=== PATIENT | male | born 1955 | race American Indian/Alaskan Native ===

== ENCOUNTER 2019-09-01 09:30 | Inpatient (IN) | payer MEDICAID, OTHER ==
[~2019-09-01 09:30] MED LIST: Bupivacaine 0.5%/EPINEPHrine 1:200,000 10 ML SDV ONE; Lactated Ringers 1,000 ML IV SCH; Midazolam 1 MG/ML 2 ML SDV ONE; Propofol 200 MG/20 ML SDV ONE; Rocuronium 100 MG/10 ML Syringe ONE; Sodium Chloride 0.9% 0 ML ONE; Succinylcholine/Sod PF 100 MG/5 ML SYRINGE IV ONE; Vancomycin 1 GM SDV ONE; ePHEDrine 50 MG/ML SDV ONE; fentaNYL 100 MCG/2 ML SDV ONE
[2019-09-01] MEDS ORDERED: Sodium Chloride 0.9% 20 ML ONE (13:03)
[2019-09-01] MEDS ORDERED: ceFAZolin 1 GM Vial ONE (13:03)
[2019-09-01] MEDS ORDERED: Bupivacaine 0.5% 10 ML SDV ONE (13:05)
[2019-09-01] MEDS ORDERED: Midazolam 1 MG/ML 2 ML SDV ONE ×2 (13:09→13:10)
[2019-09-01] MEDS ORDERED: fentaNYL 100 MCG/2 ML SDV ONE (13:10)
[2019-09-01] MEDS ORDERED: Propofol 200 MG/20 ML SDV ONE ×6 (13:10→15:51)
--- NOTE | 2019-09-01 13:17 | PCM.PREANE ---
Preanesthetic Assessment - Anesthesia/Transfusion/Family Hx Anesthesia History: Prior Anesthesia Without Reaction Family History of Anesthesia Reaction: No Transfusion History: No Prior Transfusion(s) Intubation History: Unknown - Review of Systems General: No Symptoms Pulmonary: No Symptoms Cardiovascular: No Symptoms Gastrointestinal: No Symptoms Neurological: No Symptoms Other: Reports: None - Physical Assessment Height: 5 ft 10 in Weight: 122.47 kg ASA Class: 2 Mental Status: Alert & Oriented x3 Airway Class: Mallampati = 2 Dentition: Reports: Normal Dentition (grinded edges) Thyro-Mental Finger Breadths: 3 Mouth Opening Finger Breadths: 3 ROM/Head Extension: Full Lungs: Clear to Auscultation, Normal Respiratory Effort Cardiovascular: Regular Rate, Regular Rhythm - Allergies Allergies/Adverse Reactions: Allergies Allergy/AdvReac Type Severity Reaction Status Date / Time No Known Allergies Allergy Verified 08/31/19 17:19 - Blood Blood Available: No - Anesthesia Plan Pre-Op Medication Ordered: None - Acknowledgements Anesthesia Type Planned: Spinal Pt an Appropriate Candidate for the Planned Anesthesia: Yes Alternatives and Risks of Anesthesia Discussed w Pt/Guardian: Yes Pt/Guardian Understands and Agrees with Anesthesia Plan: Yes PreAnesthesia Questionnaire HEENT History: Reports: Other (See Below) Other HEENT History: wears glasses Cardiovascular History: Reports: Hypertension Respiratory History: Reports: None Gastrointestinal History: Reports: Colon Polyp Genitourinary History: Reports: None Musculoskeletal History: Reports: Fracture, Osteoarthritis Other Musculoskeletal History: hx fx hand Neurological History: Reports: None Psychiatric History: Reports: None Endocrine/Metabolic History: Reports: Obesity/BMI 30+ (BMI 38.7) Hematologic History: Reports: None Immunologic History: Reports: None Oncologic (Cancer) History: Reports: None Dermatologic History: Reports: None - Past Surgical History Head Surgeries/Procedures: Reports: None HEENT Surgical History: Reports: None Cardiovascular Surgical History: Reports: None Respiratory Surgical History: Reports: None GI Surgical History: Reports: Colonoscopy Male Surgical History: Reports: None Endocrine Surgical History: Reports: None Neurological Surgical History: Reports: None Musculoskeletal Surgical History: Reports: Knee Replacement Other Musculoskeletal Surgeries/Procedures:: hx left knee replacement 5 years ago in [place] under spinal anesthesia, right knee replacement in july 2019 Oncologic Surgical History: Reports: None Dermatological Surgical History: Reports: None - SUBSTANCE USE Smoking Status *Q: Light Tobacco Smoker Tobacco Use Within Last Twelve Months: Cigarettes - HOME MEDS Home Medications: Home Meds Carvedilol [Coreg] 3.125 mg PO BID 07/23/19 [History] Enalapril Maleate 10 mg PO DAILY 07/23/19 [History] amLODIPine Besylate [Amlodipine Besylate] 10 mg PO DAILY 07/23/19 [History] Aspirin 325 mg PO DAILY #30 tablet 07/29/19 [Rx] cephALEXin [Cephalexin] 500 mg PO TID 08/31/19 [History] - CURRENT (IN HOUSE) MEDS Current Meds: Current Medications Lactated Ringer's (Ringers, Lactated) 1,000 mls @ 125 mls/hr IV ASDIRECTED WEI Discontinued Medications Bupivacaine HCl (Sensorcaine-Mpf 0.5%) Confirm Administered Dose 10 ml .ROUTE .STK-MED ONE Stop: 09/01/19 13:06 Bupivacaine HCl/Epinephrine Bitart (Marcaine 0.5%/Epinephrine 1:200,000) Confirm Administered Dose 10 ml .ROUTE .STK-MED ONE Stop: 09/01/19 07:45 Cefazolin Sodium (Ancef) Confirm Administered Dose 2 gm .ROUTE .STK-MED ONE Stop: 09/01/19 13:04 Ephedrine Sulfate (Ephedrine Sulfate) Confirm Administered Dose 50 mg .ROUTE .STK-MED ONE Stop: 09/01/19 07:30 Fentanyl (Sublimaze) Confirm Administered Dose 100 mcg .ROUTE .STK-MED ONE Stop: 09/01/19 07:30 Fentanyl (Sublimaze) Confirm Administered Dose 100 mcg .ROUTE .STK-MED ONE Stop: 09/01/19 13:11 Sodium Chloride (Normal Saline) Confirm Administered Dose 20 mls @ as directed .ROUTE .STK-MED ONE Stop: 09/01/19 07:30 Sodium Chloride (Normal Saline) Confirm Administered Dose 20 mls @ as directed .ROUTE .STK-MED ONE Stop: 09/01/19 13:04 Midazolam HCl (Versed 1 Mg/Ml) Confirm Administered Dose 2 mg .ROUTE .STK-MED ONE Stop: 09/01/19 07:30 Midazolam HCl (Versed 1 Mg/Ml) Confirm Administered Dose 2 mg .ROUTE .STK-MED ONE Stop: 09/01/19 13:10 Midazolam HCl (Versed 1 Mg/Ml) Confirm Administered Dose 2 mg .ROUTE .STK-MED ONE Stop: 09/01/19 13:11 Propofol (Diprivan 20 Ml) Confirm Administered Dose 200 mg .ROUTE .STK-MED ONE Stop: 09/01/19 07:29 Propofol (Diprivan 20 Ml) Confirm Administered Dose 200 mg .ROUTE .STK-MED ONE Stop: 09/01/19 13:11 Propofol (Diprivan 20 Ml) Confirm Administered Dose 200 mg .ROUTE .STK-MED ONE Stop: 09/01/19 13:11 Propofol (Diprivan 20 Ml) Confirm Administered Dose 200 mg .ROUTE .STK-MED ONE Stop: 09/01/19 13:12 Rocuronium [place] (Zemuron) Confirm Administered Dose 100 mg .ROUTE .STK-MED ONE Stop: 09/01/19 07:30 Vancomycin HCl (Vancomycin) Confirm Administered Dose 1 gm .ROUTE .STK-MED ONE Stop: 09/01/19 07:45
[2019-09-01] MEDS ORDERED: Ropivacaine 49.25 ML, Ketorolac 30 MG, EPINEPHrine 0.5 MG, cloNIDine 80 MCG in Sodium C... INJECT SCH (14:00)
[2019-09-01] MEDS ORDERED: Vancomycin 1 GM SDV ONE ×3 (14:33→16:12)
[2019-09-01] MEDS ORDERED: Sodium Chloride 0.9% 10 ML Syringe FLUSH PRN (16:48)
[2019-09-01] MEDS ORDERED: Bisacodyl 10 MG Supp RECTAL PRN (16:48)
[2019-09-01] MEDS ORDERED: Ondansetron 4 MG/2 ML SDV IVPUSH PRN (16:48)
[2019-09-01] MEDS ORDERED: Aluminum Hydroxide/Magnesium Hydroxide/Simethicone Susp 30 ML Cup PO PRN (16:48)
[2019-09-01] MEDS ORDERED: diphenhydrAMINE 25 MG Cap PO PRN (16:48)
[2019-09-01] MEDS ORDERED: Docusate Sodium 100 MG Cap PO PRN (16:48)
[2019-09-01] MEDS ORDERED: Sodium Chloride 0.9% 2.5 ML Syringe FLUSH PRN (16:48)
--- NOTE | 2019-09-01 16:56 | PCM.OPNOTE ---
- General Post-Op/Procedure Note Date of Surgery/Procedure: 09/01/19 Operative Procedure(s): removal of total knee arthroplasty. irrigation and debridement. implant of antiobiotic total knee spacer. wound vac placement, incisional Pre Op Diagnosis: superficial infection total knee arthroplasty Post-Op Diagnosis: Same Anesthesia Technique: Epidural Primary Surgeon: Javy Lieberman Crop And Soil Scientist: Danitza Balbuena Pathology: aerobic and anaerobic cultures, gram stain EBL in mLs: 50 Complications: None Condition: Good
--- NOTE | 2019-09-01 17:24 | PCM.POSTAN ---
POST ANESTHESIA ASSESSMENT - MENTAL STATUS Mental Status: Alert - VITAL SIGNS Vital Signs: Last Vital Signs Temp 36.1 C 09/01/19 16:42 Pulse 72 09/01/19 17:17 Resp 23 H 09/01/19 17:17 BP 140/83 09/01/19 17:17 Pulse Ox 94 L 09/01/19 17:17 - RESPIRATORY Respiratory Status: Respiratory Rate WNL - CARDIOVASCULAR CV Status: Pulse Rate WNL - GASTROINTESTINAL GI Status: No Symptoms - POST OP HYDRATION Hydration Status: Adequate & Stable
[2019-09-01] MEDS: Vancomycin 1.75 GM in Sodium Chloride 0.9% 500 ML IV SCH (18:03)
[2019-09-01] MEDS: Ketorolac 15 MG/ML SDV IVPUSH SCH (18:06)
[2019-09-01] MEDS: Acetaminophen/oxyCODONE 325-5 MG Tab PO PRN ×2 (18:39→23:00)
--- NOTE | 2019-09-01 21:42 | PCM.HP.2 ---
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 Lieberman. Patient has a history of Right TKA on 07/28/19. Patient reported increased pain and drainage from his wounds starting yesterday. He also has a history of infect left TKA in 2017 done in [place]. Patient denies any shortness of breath, chest pain, cough or fevers. Right Knee Pain Score (Numeric/FACES): 6 - Related Data Allergies/Adverse Reactions: Allergies Allergy/AdvReac Type Severity Reaction Status Date / Time No Known Allergies Allergy Verified 09/01/19 18:10 Home Medications: Home Meds Carvedilol [Coreg] 3.125 mg PO BID 07/23/19 [History] Enalapril Maleate 10 mg PO DAILY 07/23/19 [History] amLODIPine Besylate [Amlodipine Besylate] 10 mg PO DAILY 07/23/19 [History] Aspirin 325 mg PO DAILY #30 tablet 07/29/19 [Rx] cephALEXin [Cephalexin] 500 mg PO TID 08/31/19 [History] Past Medical History HEENT History: Reports: Other (See Below) Other HEENT History: wears glasses Cardiovascular History: Reports: Hypertension Respiratory History: Reports: None Gastrointestinal History: Reports: Colon Polyp Genitourinary History: Reports: None Musculoskeletal History: Reports: Fracture, Osteoarthritis Other Musculoskeletal History: hx fx hand Neurological History: Reports: None Psychiatric History: Reports: None Endocrine/Metabolic History: Reports: Obesity/BMI 30+ Hematologic History: Reports: None Immunologic History: Reports: None Oncologic (Cancer) History: Reports: None Dermatologic History: Reports: None - Past Surgical History Head Surgeries/Procedures: Reports: None HEENT Surgical History: Reports: None Cardiovascular Surgical History: Reports: None Respiratory Surgical History: Reports: None GI Surgical History: Reports: Colonoscopy Male Surgical History: Reports: None Endocrine Surgical History: Reports: None Neurological Surgical History: Reports: None Musculoskeletal Surgical History: Reports: Knee Replacement Other Musculoskeletal Surgeries/Procedures:: hx left knee replacement 5 years ago in [place] under spinal anesthesia, right knee replacement in july 2019 Oncologic Surgical History: Reports: None Dermatological Surgical History: Reports: None Social & Family History - Family History Family Medical History: Noncontributory - Tobacco Use Smoking Status *Q: Light Tobacco Smoker - Caffeine Use Caffeine Use: Reports: Coffee, Soda - Recreational Drug Use Drug Use in Last 12 Months: No H&P Review of Systems - Review of Systems: Review Of Systems: Comprehensive ROS is negative, except as noted in HPI. Exam - Exam Exam: See Below - Vital Signs Vital Signs: Last Vital Signs Temp 36.8 C 09/01/19 20:57 Pulse 88 09/01/19 20:57 Resp 16 09/01/19 20:57 BP 115/61 09/01/19 20:57 Pulse Ox 94 L 09/01/19 20:57 Weight: 122.47 kg - Exam General: Alert, Oriented HEENT: Mucosa Moist & [place] Lungs: Clear to Auscultation, Normal Respiratory Effort Cardiovascular: Regular Rate, Regular Rhythm GI/Abdominal Exam: Normal Bowel Sounds, Soft, Non-Tender Neurological: No: Focal Deficit - Patient Data Result Diagrams: 09/02/19 04:41 09/02/19 04:41 Hernán Results Last 24 hrs: Microbiology 09/01/19 14:30 Gram Stain - Preliminary Knee, Right Sepsis Event Note - Evaluation Sepsis Screening Result: No Definite Risk - Focused Exam Vital Signs: Vital Signs Temp Pulse Resp BP Pulse Ox 09/01/19 20:57 36.8 C 88 16 115/61 94 L 09/01/19 19:17 37.3 C 92 18 142/63 H 96 09/01/19 18:30 37.4 C 86 17 147/87 H 95 09/01/19 17:35 36.6 C 76 16 137/55 L 97 09/01/19 17:27 74 18 142/81 H 95 09/01/19 17:22 74 20 141/84 H 95 09/01/19 17:17 72 23 H 140/83 94 L 09/01/19 17:12 71 20 135/78 95 09/01/19 17:07 74 19 141/72 H 95 09/01/19 17:03 69 20 131/72 94 L 09/01/19 16:58 68 19 111/73 94 L 09/01/19 16:53 71 17 108/72 95 09/01/19 16:48 92 18 118/76 95 09/01/19 16:42 36.1 C 71 16 126/79 95 09/01/19 13:22 37.0 C 79 18 166/76 H 95 Date Exam was Performed: 09/02/19 Time Exam was Performed: 11:27 Problem List Initiated/Reviewed/Updated: Yes Orders Last 24hrs: Active Orders 24 hr Category Date Time Status Admission Status [Patient Status] [ADT] Routine ADT 09/01/19 16:47 Active Antiembolic Devices [RC] PER UNIT ROUTINE Care 09/01/19 17:04 Active Communication Order [RC] PRN Care 09/01/19 16:48 Active Cooling Warming Measures [RC] ASDIRECTED Care 09/01/19 16:48 Active Neurovascular Check [RC] Q2HR Care 09/01/19 16:48 Active Notify Provider Consults [RC] ASDIRECTED Care 09/01/19 16:53 Active Notify Provider Vital Signs [RC] ASDIRECTED Care 09/01/19 16:48 Active RT Incentive Spirometry [RC] Q1HWA Care 09/01/19 16:48 Active Urinary Catheter Removal [RC] ASDIRECTED Care 09/02/19 16:48 Active Vital Signs [RC] Q4H Care 09/01/19 16:48 Active Wound Care [RC] DAILY Care 09/01/19 16:48 Active Consult to Case Management/Sports Bookmaker [CONS] Cons 09/01/19 17:00 Active Routine Consult to Physician [CONS] Routine Cons 09/01/19 16:48 Active PT Evaluation and Treatment [CONS] Routine Cons 09/02/19 09:00 Active Regular Diet [DIET] Diet 09/01/19 Dinner Active ANAEROBIC CULTURE Routine Lab 09/01/19 14:30 Received BASIC METABOLIC PANEL,BMP [CHEM] AM Lab 09/02/19 05:11 Ordered CBC WITH AUTO DIFF [HEME] AM Lab 09/02/19 05:11 Ordered CULTURE WOUND [RM] Routine Lab 09/01/19 14:30 Results GRAM STAIN [RM] Routine Lab 09/01/19 14:30 Results HEMOGLOBIN/HEMATOCRIT,HH [HEME] DAILY Lab 09/02/19 06:00 Ordered HEMOGLOBIN/HEMATOCRIT,HH [HEME] DAILY Lab 09/03/19 06:00 Ordered VANCOMYCIN TROUGH [CHEM] Timed Lab 09/02/19 17:30 Ordered Acetaminophen/oxyCODONE [Percocet 325-5 MG] Med 09/01/19 16:48 Active 1 - 2 tab PO Q4H PRN Alum Hydrox/Mag Hydrox/Simeth [Mag-Al Plus] Med 09/01/19 16:48 Active 30 ml PO Q4H PRN Aspirin Med 09/02/19 09:00 Active 325 mg PO DAILY Docusate Sodium [Colace] Med 09/01/19 16:48 Active 100 mg PO BID PRN Enalapril [Vasotec] Med 09/02/19 09:00 Ordered 10 mg PO DAILY Famotidine [Pepcid] Med 09/02/19 09:00 Active 40 mg PO DAILY Ketorolac [Toradol] Med 09/01/19 18:00 Active 15 mg IVPUSH Q6H Lactated Ringers [Ringers, Lactated] 1,000 ml Med 09/01/19 07:30 Active IV ASDIRECTED Ondansetron [Zofran] Med 09/01/19 16:48 Active 4 mg IVPUSH Q6H PRN Pharmacy to Dose - Vancomycin Med 09/01/19 17:15 Active 1 dose .XX ASDIRECTED Ropivacaine [Naropin 0.2%] 49.25 ml Med 09/01/19 14:00 Active Ketorolac [Toradol] 30 mg EPINEPHrine [Adrenalin] 0.5 mg cloNIDine [Duraclon] 80 mcg Sodium Chloride 0.9% [Normal Saline] 23.45 ml INJECT ASDIRECTED Sodium Chloride 0.9% [Saline Flush] Med 09/01/19 16:48 Active 10 ml FLUSH ASDIRECTED PRN Sodium Chloride 0.9% [Saline Flush] Med 09/01/19 16:48 Active 2.5 ml FLUSH ASDIRECTED PRN Vancomycin 1.75 gm Med 09/01/19 18:00 Active Sodium Chloride 0.9% [Normal Saline] 500 ml IV Q8H amLODIPine Med 09/02/19 09:00 Ordered 10 mg PO DAILY bisacodyL [Dulcolax] Med 09/01/19 16:48 Active 10 mg RECTAL DAILY PRN carvediloL [Coreg] Med 09/02/19 09:00 Ordered 3.125 mg PO BID diphenhydrAMINE [Benadryl] Med 09/01/19 16:48 Active 25 - 50 mg PO Q6H PRN polyethylene glycoL 3350 [MiraLAX] Med 09/02/19 09:00 Active 17 gm PO DAILY Convert IV to Saline Lock [OM.PC] PRN Oth 09/01/19 17:00 Ordered Convert IV to Saline Lock [OM.PC] PRN Oth 09/02/19 17:00 Ordered Ice Therapy [OM.PC] Routine Oth 09/01/19 16:48 Ordered Sequential Compression Device [OM.PC] Routine Oth 09/01/19 16:48 Ordered Medication Orders Al Hydroxide/Mg Hydroxide (Mag-Al Plus) 30 ml PO Q4H PRN PRN Reason: Indigestion Aspirin (Aspirin) 325 mg PO DAILY [facility] Bisacodyl (Dulcolax) 10 mg RECTAL DAILY PRN PRN Reason: Constipation Carvedilol (Coreg) 3.125 mg PO BID [facility] Diphenhydramine HCl (Benadryl) 25 - 50 mg PO Q6H PRN PRN Reason: Itching Docusate Sodium (Colace) 100 mg PO BID PRN PRN Reason: Constipation Enalapril Maleate (Vasotec) 10 mg PO DAILY [facility] Famotidine (Pepcid) 40 mg PO DAILY [facility] Lactated Ringer's (Ringers, Lactated) 1,000 mls @ 125 mls/hr IV ASDIRECTED [facility] Last Admin: 09/01/19 13:18 Dose: 125 mls/hr Ropivacaine 49.25 ml/Ketorolac Tromethamine 30 mg/Epinephrine HCl 0.5 mg/ Clonidine HCl 80 mcg/ Sodium Chloride 75 mls @ 50 mls/sec INJECT ASDIRECTED [facility] Vancomycin HCl 1.75 gm/ Sodium (Chloride) 500 mls @ 250 mls/hr IV Q8H [facility] Last Admin: 09/01/19 18:03 Dose: 250 mls/hr Ketorolac Tromethamine (Toradol) 15 mg IVPUSH Q6H [facility] Stop: 09/02/19 21:00 Last Admin: 09/01/19 18:06 Dose: 15 mg Non-Formulary Medication (Amlodipine) 10 mg PO DAILY [facility] Ondansetron HCl (Zofran) 4 mg IVPUSH Q6H PRN PRN Reason: Nausea/Vomiting Oxycodone/Acetaminophen (Percocet 325-5 Mg) 1 - 2 tab PO Q4H PRN PRN Reason: Pain Last Admin: 09/01/19 18:39 Dose: 2 tab Polyethylene Glycol (Miralax) 17 gm PO DAILY [facility] Sodium Chloride (Saline Flush) 10 ml FLUSH ASDIRECTED PRN PRN Reason: Keep Vein Open Sodium Chloride (Saline Flush) 2.5 ml FLUSH ASDIRECTED PRN PRN Reason: Keep Vein Open Vancomycin HCl (Pharmacy To Dose - Vancomycin) 1 dose .XX ASDIRECTED [facility] Assessment/Plan Comment:: 63 yo male admitted for removal of infected right TKA. A spacer has been placed and Dr. Lieberman plans on arranging PICC for outpatient IV antibiotics pending culture results. Medicine service has been consulted regarding patient hypertension. Patient should have his enalapril, Coreg, and amlodipine resumed.
[2019-09-02] MEDS: Ketorolac 15 MG/ML SDV IVPUSH SCH ×4 (00:36→18:19)
[2019-09-02] MEDS: Vancomycin 1.75 GM in Sodium Chloride 0.9% 500 ML IV SCH ×3 (01:45→19:44)
[2019-09-02] MEDS: Acetaminophen/oxyCODONE 325-5 MG Tab PO PRN ×4 (03:51→23:05)
[2019-09-02 05:03] LABS: CARBON DIOXIDE,CO2 28.7 mmol/L (21.0-32.0); POTASSIUM,K 4.8 mmol/L (3.5-5.1)
--- NOTE | 2019-09-02 07:13 | PCM48HPAN ---
Post Anesthesia Note - EVALUATION WITHIN 48HRS OF ANESTHETIC Vital Signs in Normal Range: Yes Patient Participated in Evaluation: Yes Respiratory Function Stable: Yes Airway Patent: Yes Cardiovascular Function Stable: Yes Hydration Status Stable: Yes Pain Control Satisfactory: Yes Nausea and Vomiting Control Satisfactory: Yes Mental Status Recovered: Yes Vital Signs: Last Vital Signs Temp 37.6 C 09/02/19 03:50 Pulse 88 09/02/19 03:50 Resp 16 09/02/19 03:50 BP 147/63 H 09/02/19 03:50 Pulse Ox 96 09/02/19 03:50
--- NOTE | 2019-09-02 07:57 | OR ---
SURGEON: Javy Lieberman DATE OF PROCEDURE: 09/01/2019 PREOPERATIVE DIAGNOSIS: Superficial infection, right total knee arthroplasty. POSTOPERATIVE DIAGNOSIS: Deep infection, right total knee arthroplasty at 1 month and 4 days postop. PRIMARY SURGEON: Javy Lieberman DO CAUSTIC PURIFICATION OPERATOR: DREA Herrmann ROLE OF CAUSTIC PURIFICATION OPERATOR: Nurse practitioner, DREA Herrmann, played an essential role in assisting in this case, helping to position the patient, retract structures as needed, as well as suturing and cutting sutures as indicated. Her presence improved patient's safety and decreased operative time. PROCEDURES: 1. Removal of total knee arthroplasty. 2. Irrigation and debridement. 3. Implant of antibiotic total knee spacer. 4. Wound VAC placement, incisional. 5. Total synovectomy. ESTIMATED BLOOD LOSS: 50 mL. COMPLICATIONS: None. SPECIMENS: Aerobic and anaerobic cultures, Gram stain. DISCHARGE DISPOSITION: Stable to PACU. HISTORY AND INDICATIONS FOR THE PROCEDURE: The patient is well known to me. The previous week, there was concern about a DVT, which was ruled out via ultrasound. We did ask him to come to the office to check on him. He had a draining wound at that time. Risks and goals of the procedure were explained to the patient. Informed consent was obtained. DETAILS OF PROCEDURE: The patient was seen by myself and the Anesthesia staff in the preoperative holding area, where the operative site was marked. He was brought to the operative suite by the Anesthesia staff, where spinal anesthesia and conscious sedation were administered. All extremities were found to be well padded. The right lower extremity was then prepped and draped in a sterile manner. Time-out was called identifying the correct patient, the correct procedure, the correct site, and that antibiotics had been given within appropriate period of time. I did not apply the tourniquet at first, as is typical for superficial irrigation and debridement. I then opened up the incision. I could then palpate over to the medial part of the arthrotomy, and then a copious amount of purulent fluid was expressed. At that point, we then exsanguinated the right lower extremity. Tourniquet was raised to 250 mmHg and kept up for 120 minutes and taken down after closure. The regular incision was made and a medial parapatellar arthrotomy was then made. I then performed a full synovectomy, removing as much of the synovium as possible. We did notice a small area that continued to drain, and we found an area on the lateral side of the tibia, which was extra- articular, but this was a deep pocket, probably containing around 200 to 300 mL of fluid. This was expressed. We then irrigated that area and irrigated the knee. I then used a reciprocating saw and chisels to remove the femoral and tibial implants, after removing the polyethylene with an osteotome. We then removed any extra cement. I did take time to remove the cement from the tibial post area, as well as the distal reaming of the distal femur into the medullary cavity. After this had been accomplished, we then ran 4 L of Betadine infused irrigation through the pulse lavage system to irrigate. I also removed the patella polyethylene using reciprocating saw. At this point, we concentrated on preparing our tibial and femoral implants for a spacer. This was a [employer] spacer system. I took measurements, and we prepared, on the tibial side, an 81 mm x 52 mm large tibial implant and a 75 mm x 53 mm femoral implant. The femur with was applied first. This was done by applying the cement to even out the area of the femur, then applying a copious amount of cement, and then applying my femur. We then let that harden and then removed the plastic covering over the femur. We then applied cement to the tibia and then cemented my tibial component into place. We left the knee out in extension, allowed this to harden. We then applied antibiotic beads to the tibial cavity laterally. We then closed the parapatellar arthrotomy with four #5 Ethibond sutures in a [id number] manner at the superior-mid portion and inferior portion of the patella, as well as inferior at the proximal tibia. We then closed this in a watertight manner with two #1 Stratafix running sutures. We then applied Betadine-soaked irrigation to the subcutaneous area. I then applied more antibiotic impregnated beads and then closed subcu with #1 Stratafix, followed by charlene, followed by placement of an incisional wound VAC set to 120 mmHg suction. The tourniquet was let down at that time. The patient was allowed to awaken from anesthesia and taken to the PACU in stable condition. [id number] / MODL /[id number]
[2019-09-02] MEDS: Aspirin 325 MG Tab PO SCH (08:25)
[2019-09-02] MEDS: Carvedilol 3.125 MG Tab PO SCH ×2 (08:25→21:31)
[2019-09-02] MEDS: Polyethylene Glycol 3350 Powder 17 GM Packet PO SCH (08:26)
[2019-09-02] MEDS: amLODIPine 5 MG Tab PO SCH (08:27)
[2019-09-02] MEDS: Famotidine 20 MG Tab PO SCH (08:28)
--- NOTE | 2019-09-02 08:57 | PCM.CONSN ---
- General Info Date of Service: 09/02/19 Admission Dx/Problem (Free Text): Admission Diagnosis/Problem Admission Diagnosis/Problem Knee pain Subjective Update: Sitting up in the chair. Doing well. Pain to knee, but reports this only elevated with ambulation. Denies chest pain or SOB. No other concerns. Functional Status: Reports: Pain Controlled, Tolerating Diet, Ambulating, Urinating - Review of Systems General: Reports: No Symptoms HEENT: Reports: No Symptoms. Denies: Headaches, Sore Throat Pulmonary: Reports: No Symptoms. Denies: Shortness of Breath Cardiovascular: Reports: No Symptoms. Denies: Chest Pain, Palpitations Gastrointestinal: Reports: No Symptoms Genitourinary: Reports: No Symptoms. Denies: Dysuria, Frequency Musculoskeletal: Reports: No Symptoms Skin: Reports: No Symptoms Neurological: Reports: No Symptoms Psychiatric: Reports: No Symptoms - Patient Data Vitals - Most Recent: Last Vital Signs Temp 98.5 F 09/02/19 07:22 Pulse 86 09/02/19 08:25 Resp 16 09/02/19 07:22 BP 144/65 H 09/02/19 08:28 Pulse Ox 95 09/02/19 07:22 Weight - Most Recent: 122.47 kg I&O - Last 24 Hours: Intake & Output 09/01/19 09/02/19 09/02/19 22:59 06:59 14:59 Intake Total 3100 2047 Output Total 200 350 Balance 2900 1697 Lab Results Last 24 Hours: Laboratory Results - last 24 hr 09/02/19 09/02/19 Range/Units 04:41 04:41 WBC 11.56 H (4.0-11.0) K/uL RBC 3.34 L (4.50-5.90) M/uL Hgb 9.1 L (13.0-17.0) g/dL Hct 29.0 L (38.0-50.0) % MCV 86.8 (80.0-98.0) fL MCH 27.2 (27.0-32.0) pg MCHC 31.4 (31.0-37.0) g/dL RDW Std Deviation 51.3 (28.0-62.0) fl RDW Coeff of Yesika 16 H (11.0-15.0) % Plt Count 445 H (150-400) K/uL MPV 7.80 (7.40-12.00) fL Neut % (Auto) 75.6 (48.0-80.0) % Lymph % (Auto) 13.7 L (16.0-40.0) % [place] % (Auto) 9.9 (0.0-15.0) % Eos % (Auto) 0.5 (0.0-7.0) % Baso % (Auto) 0.3 (0.0-1.5) % Neut # (Auto) 8.8 H (1.4-5.7) K/uL Lymph # (Auto) 1.6 (0.6-2.4) K/uL [place] # (Auto) 1.1 H (0.0-0.8) K/uL Eos # (Auto) 0.1 (0.0-0.7) K/uL Baso # (Auto) 0.0 (0.0-0.1) K/uL Nucleated RBC % 0.0 /100WBC Nucleated RBCs # 0 K/uL Sodium 141 (136-148) mmol/L Potassium 4.8 (3.5-5.1) mmol/L Chloride 104 (98-107) mmol/L Carbon Dioxide 28.7 (21.0-32.0) mmol/L BUN 18 (7.0-18.0) mg/dL Creatinine 1.3 (0.8-1.3) mg/dL Est Cr Clr Drug Dosing 60.83 mL/min Estimated GFR (MDRD) 55.9 ml/min Glucose 122 H (74-106) mg/dL Calcium 8.0 L (8.5-10.1) mg/dL Hernán Results Last 24 Hours: Microbiology 09/01/19 14:30 Gram Stain - Preliminary Knee, Right Med Orders - Current: Current Medications Al Hydroxide/Mg Hydroxide (Mag-Al Plus) 30 ml PO Q4H PRN PRN Reason: Indigestion Amlodipine Besylate (Norvasc) 10 mg PO DAILY [facility] Last Admin: 09/02/19 08:27 Dose: 10 mg Aspirin (Aspirin) 325 mg PO DAILY [facility] Last Admin: 09/02/19 08:25 Dose: 325 mg Bisacodyl (Dulcolax) 10 mg RECTAL DAILY PRN PRN Reason: Constipation Carvedilol (Coreg) 3.125 mg PO BID [facility] Last Admin: 09/02/19 08:25 Dose: 3.125 mg Diphenhydramine HCl (Benadryl) 25 - 50 mg PO Q6H PRN PRN Reason: Itching Docusate Sodium (Colace) 100 mg PO BID PRN PRN Reason: Constipation Enalapril Maleate (Vasotec) 10 mg PO DAILY [facility] Last Admin: 09/02/19 08:28 Dose: 10 mg Famotidine (Pepcid) 40 mg PO DAILY [facility] Last Admin: 09/02/19 08:28 Dose: 40 mg Lactated Ringer's (Ringers, Lactated) 1,000 mls @ 125 mls/hr IV ASDIRECTED [facility] Last Admin: 09/01/19 13:18 Dose: 125 mls/hr Vancomycin HCl 1.75 gm/ Sodium (Chloride) 500 mls @ 250 mls/hr IV Q8H [facility] Last Admin: 09/02/19 01:45 Dose: 250 mls/hr Ketorolac Tromethamine (Toradol) 15 mg IVPUSH Q6H [facility] Stop: 09/02/19 21:00 Last Admin: 09/02/19 06:09 Dose: 15 mg Ondansetron HCl (Zofran) 4 mg IVPUSH Q6H PRN PRN Reason: Nausea/Vomiting Oxycodone/Acetaminophen (Percocet 325-5 Mg) 1 - 2 tab PO Q4H PRN PRN Reason: Pain Last Admin: 09/02/19 08:29 Dose: 2 tab Polyethylene Glycol (Miralax) 17 gm PO DAILY [facility] Last Admin: 09/02/19 08:26 Dose: 17 gm Sodium Chloride (Saline Flush) 10 ml FLUSH ASDIRECTED PRN PRN Reason: Keep Vein Open Sodium Chloride (Saline Flush) 2.5 ml FLUSH ASDIRECTED PRN PRN Reason: Keep Vein Open Vancomycin HCl (Pharmacy To Dose - Vancomycin) 1 dose .XX ASDIRECTED [facility] Discontinued Medications Bupivacaine HCl (Sensorcaine-Mpf 0.5%) Confirm Administered Dose 10 ml .ROUTE .STK-MED ONE Stop: 09/01/19 13:06 Bupivacaine HCl/Epinephrine Bitart (Marcaine 0.5%/Epinephrine 1:200,000) Confirm Administered Dose 10 ml .ROUTE .STK-MED ONE Stop: 09/01/19 07:45 Cefazolin Sodium (Ancef) Confirm Administered Dose 2 gm .ROUTE .ST-MED ONE Stop: 09/01/19 13:04 Ephedrine Sulfate (Ephedrine Sulfate) Confirm Administered Dose 50 mg .ROUTE .ST-MED ONE Stop: 09/01/19 07:30 Fentanyl (Sublimaze) Confirm Administered Dose 100 mcg .ROUTE .ST-MED ONE Stop: 09/01/19 07:30 Fentanyl (Sublimaze) Confirm Administered Dose 100 mcg .ROUTE .ST-MED ONE Stop: 09/01/19 13:11 Sodium Chloride (Normal Saline) Confirm Administered Dose 0 mls @ as directed .ROUTE .ST-MED ONE Stop: 09/01/19 07:30 Sodium Chloride (Normal Saline) Confirm Administered Dose 20 mls @ as directed .ROUTE .[facility]-MED ONE Stop: 09/01/19 13:04 Ropivacaine 49.25 ml/Ketorolac Tromethamine 30 mg/Epinephrine HCl 0.5 mg/ Clonidine HCl 80 mcg/ Sodium Chloride 75 mls @ 50 mls/sec INJECT ASDIRECTED WEI Midazolam HCl (Versed 1 Mg/Ml) Confirm Administered Dose 2 mg .ROUTE .ST-MED ONE Stop: 09/01/19 07:30 Midazolam HCl (Versed 1 Mg/Ml) Confirm Administered Dose 2 mg .ROUTE .ST-MED ONE Stop: 09/01/19 13:10 Midazolam HCl (Versed 1 Mg/Ml) Confirm Administered Dose 2 mg .ROUTE .ST-MED ONE Stop: 09/01/19 13:11 Propofol (Diprivan 20 Ml) Confirm Administered Dose 200 mg .ROUTE .ST-MED ONE Stop: 09/01/19 07:29 Propofol (Diprivan 20 Ml) Confirm Administered Dose 200 mg .ROUTE .ST-MED ONE Stop: 09/01/19 13:11 Propofol (Diprivan 20 Ml) Confirm Administered Dose 200 mg .ROUTE .ST-MED ONE Stop: 09/01/19 13:11 Propofol (Diprivan 20 Ml) Confirm Administered Dose 200 mg .ROUTE .STK-MED ONE Stop: 09/01/19 13:12 Propofol (Diprivan 20 Ml) Confirm Administered Dose 400 mg .ROUTE .ST-MED ONE Stop: 09/01/19 14:59 Propofol (Diprivan 20 Ml) Confirm Administered Dose 200 mg .ROUTE .STK-MED ONE Stop: 09/01/19 15:51 Propofol (Diprivan 20 Ml) Confirm Administered Dose 200 mg .ROUTE .STK-MED ONE Stop: 09/01/19 15:52 Rocuronium [place] (Zemuron) Confirm Administered Dose 100 mg .ROUTE .STK-MED ONE Stop: 09/01/19 07:30 Tranexamic Acid (Cyklokapron) Confirm Administered Dose 2,000 mg .ROUTE .STK- MED ONE Stop: 09/01/19 13:44 Vancomycin HCl (Vancomycin) Confirm Administered Dose 1 gm .ROUTE .STK-MED ONE Stop: 09/01/19 07:45 Vancomycin HCl (Vancomycin) Confirm Administered Dose 5 gm .ROUTE .STK-MED ONE Stop: 09/01/19 14:34 Vancomycin HCl (Vancomycin) Confirm Administered Dose 1 gm .ROUTE .STK-MED ONE Stop: 09/01/19 15:56 Vancomycin HCl (Vancomycin) Confirm Administered Dose 1 gm .ROUTE .STK-MED ONE Stop: 09/01/19 16:13 - Exam General: Alert, Oriented, Cooperative Lungs: Clear to Auscultation, Normal Respiratory Effort Cardiovascular: Regular Rate, Regular Rhythm GI/Abdominal Exam: Normal Bowel Sounds, Soft, Non-Tender Extremities: Normal Inspection, Normal Range of Motion, Non-Tender, No Pedal Edema Wound/Incisions: Dressing Dry and Intact (R knee, woun vac in place) Neurological: No New Focal Deficit Psy/Mental Status: Alert, Normal Affect, Normal Mood Sepsis Event Note - Evaluation Sepsis Screening Result: No Definite Risk - Focused Exam Vital Signs: Vital Signs Temp Pulse Pulse Resp BP BP Pulse Ox 09/02/19 08:28 144/65 H 09/02/19 08:27 144/65 H 09/02/19 08:25 86 144/65 H 09/02/19 07:22 98.5 F 86 16 144/65 H 95 09/02/19 03:50 99.6 F 88 16 147/63 H 96 09/01/19 22:58 99.5 F 90 17 140/75 94 L 09/01/19 20:57 98.3 F 88 16 115/61 94 L Date Exam was Performed: 09/02/19 Time Exam was Performed: 09:23 Consult PN Assessment/Plan POD#: 1 Procedures: Procedures BLOOD TYPING SEROLOGIC ABO (07/28/19) BLOOD TYPING SEROLOGIC RH(D) (07/28/19) COMPLETE CBC W/AUTO DIFF WBC (08/01/19) COMPREHEN METABOLIC PANEL (08/01/19) EMERGENCY DEPT VISIT (08/01/19) EXTREMITY STUDY (08/01/19) GLUCOSE BLOOD TEST (07/28/19) HEMATOCRIT (07/28/19) HEMOGLOBIN (07/28/19) METABOLIC PANEL TOTAL CA (07/28/19) PT EVAL LOW COMPLEX 20 MIN (07/28/19) RBC ANTIBODY SCREEN (07/28/19) ROUTINE VENIPUNCTURE (08/01/19) THERAPEUTIC ACTIVITIES (07/28/19) THERAPEUTIC EXERCISES (07/28/19) TOTAL KNEE ARTHROPLASTY (07/28/19) X-RAY EXAM KNEE 4 OR MORE (06/17/19) X-RAY EXAM OF KNEE 1 OR 2 (07/28/19) (1) Infection of total knee replacement SNOMED Code(s): 956541535 Code(s): T84.59XA - INFECT/INFLM REACTION DUE TO OTH INTERNAL JOINT PROSTH, INIT; Z96.659 - PRESENCE OF UNSPECIFIED ARTIFICIAL KNEE JOINT Current Visit: Yes (2) HTN (hypertension) SNOMED Code(s): 30016576 Code(s): I10 - ESSENTIAL (PRIMARY) HYPERTENSION Current Visit: Yes Qualifiers: Hypertension type: essential hypertension Qualified Code(s): I10 - Essential (primary) hypertension Problem List Initiated/Reviewed/Updated: Yes My Orders Last 24 Hours: My Active Orders 09/03/19 05:11 BMP [BASIC METABOLIC PANEL,BMP] [CHEM] AM Plan: This 63 year old mlae admitted s/p removal of R TKA due to infection, Hospitalist consulted for management of HTN 1. HTN: - Stable. Continue home medications of Enalapril, Coreg and Norvasc - Monitor BMP daily VTE prophylaxis: ASA BID per Orthopedics
--- NOTE | 2019-09-02 10:46 | PCM.PN ---
- General Info Date of Service: 09/02/19 Admission Dx/Problem (Free Text): right total knee infected joint Functional Status: Reports: Pain Controlled, Tolerating Diet, Urinating - Review of Systems General: Reports: No Symptoms HEENT: Reports: No Symptoms Pulmonary: Reports: No Symptoms Cardiovascular: Reports: No Symptoms Gastrointestinal: Reports: No Symptoms Genitourinary: Reports: No Symptoms Musculoskeletal: Reports: Joint Pain, Joint Swelling Skin: Reports: No Symptoms Neurological: Reports: No Symptoms Psychiatric: Reports: No Symptoms - Patient Data Vitals - Most Recent: Last Vital Signs Temp 36.9 C 09/02/19 07:22 Pulse 86 09/02/19 08:25 Resp 16 09/02/19 07:22 BP 144/65 H 09/02/19 08:28 Pulse Ox 95 09/02/19 07:22 Weight - Most Recent: 122.47 kg I&O - Last 24 Hours: Intake & Output 09/01/19 09/02/19 09/02/19 22:59 06:59 14:59 Intake Total 3100 2047 Output Total 200 350 Balance 2900 1697 Lab Results Last 24 Hours: Laboratory Results - last 24 hr 09/02/19 09/02/19 Range/Units 04:41 04:41 WBC 11.56 H (4.0-11.0) K/uL RBC 3.34 L (4.50-5.90) M/uL Hgb 9.1 L (13.0-17.0) g/dL Hct 29.0 L (38.0-50.0) % MCV 86.8 (80.0-98.0) fL MCH 27.2 (27.0-32.0) pg MCHC 31.4 (31.0-37.0) g/dL RDW Std Deviation 51.3 (28.0-62.0) fl RDW Coeff of Yesika 16 H (11.0-15.0) % Plt Count 445 H (150-400) K/uL MPV 7.80 (7.40-12.00) fL Neut % (Auto) 75.6 (48.0-80.0) % Lymph % (Auto) 13.7 L (16.0-40.0) % [place] % (Auto) 9.9 (0.0-15.0) % Eos % (Auto) 0.5 (0.0-7.0) % Baso % (Auto) 0.3 (0.0-1.5) % Neut # (Auto) 8.8 H (1.4-5.7) K/uL Lymph # (Auto) 1.6 (0.6-2.4) K/uL [place] # (Auto) 1.1 H (0.0-0.8) K/uL Eos # (Auto) 0.1 (0.0-0.7) K/uL Baso # (Auto) 0.0 (0.0-0.1) K/uL Nucleated RBC % 0.0 /100WBC Nucleated RBCs # 0 K/uL Sodium 141 (136-148) mmol/L Potassium 4.8 (3.5-5.1) mmol/L Chloride 104 (98-107) mmol/L Carbon Dioxide 28.7 (21.0-32.0) mmol/L BUN 18 (7.0-18.0) mg/dL Creatinine 1.3 (0.8-1.3) mg/dL Est Cr Clr Drug Dosing 60.83 mL/min Estimated GFR (MDRD) 55.9 ml/min Glucose 122 H (74-106) mg/dL Calcium 8.0 L (8.5-10.1) mg/dL Hernán Results Last 24 Hours: Microbiology 09/01/19 14:30 Gram Stain - Final Knee, Right Wound Culture - Preliminary Med Orders - Current: Current Medications Al Hydroxide/Mg Hydroxide (Mag-Al Plus) 30 ml PO Q4H PRN PRN Reason: Indigestion Amlodipine Besylate (Norvasc) 10 mg PO DAILY [facility] Last Admin: 09/02/19 08:27 Dose: 10 mg Aspirin (Aspirin) 325 mg PO DAILY [facility] Last Admin: 09/02/19 08:25 Dose: 325 mg Bisacodyl (Dulcolax) 10 mg RECTAL DAILY PRN PRN Reason: Constipation Carvedilol (Coreg) 3.125 mg PO BID [facility] Last Admin: 09/02/19 08:25 Dose: 3.125 mg Diphenhydramine HCl (Benadryl) 25 - 50 mg PO Q6H PRN PRN Reason: Itching Docusate Sodium (Colace) 100 mg PO BID PRN PRN Reason: Constipation Enalapril Maleate (Vasotec) 10 mg PO DAILY [facility] Last Admin: 09/02/19 08:28 Dose: 10 mg Famotidine (Pepcid) 40 mg PO DAILY [facility] Last Admin: 09/02/19 08:28 Dose: 40 mg Lactated Ringer's (Ringers, Lactated) 1,000 mls @ 125 mls/hr IV ASDIRECTED [facility] Last Admin: 09/01/19 13:18 Dose: 125 mls/hr Vancomycin HCl 1.75 gm/ Sodium (Chloride) 500 mls @ 250 mls/hr IV Q8H [facility] Last Admin: 09/02/19 10:23 Dose: 250 mls/hr Ketorolac Tromethamine (Toradol) 15 mg IVPUSH Q6H [facility] Stop: 09/02/19 21:00 Last Admin: 09/02/19 06:09 Dose: 15 mg Ondansetron HCl (Zofran) 4 mg IVPUSH Q6H PRN PRN Reason: Nausea/Vomiting Oxycodone/Acetaminophen (Percocet 325-5 Mg) 1 - 2 tab PO Q4H PRN PRN Reason: Pain Last Admin: 09/02/19 08:29 Dose: 2 tab Polyethylene Glycol (Miralax) 17 gm PO DAILY [facility] Last Admin: 09/02/19 08:26 Dose: 17 gm Sodium Chloride (Saline Flush) 10 ml FLUSH ASDIRECTED PRN PRN Reason: Keep Vein Open Sodium Chloride (Saline Flush) 2.5 ml FLUSH ASDIRECTED PRN PRN Reason: Keep Vein Open Vancomycin HCl (Pharmacy To Dose - Vancomycin) 1 dose .XX ASDIRECTED [facility] Discontinued Medications Bupivacaine HCl (Sensorcaine-Mpf 0.5%) Confirm Administered Dose 10 ml .ROUTE .STK-MED ONE Stop: 09/01/19 13:06 Bupivacaine HCl/Epinephrine Bitart (Marc[place] 0.5%/Epinephrine 1:200,000) Confirm Administered Dose 10 ml .ROUTE .STK-MED ONE Stop: 09/01/19 07:45 Cefazolin Sodium (Ancef) Confirm Administered Dose 2 gm .ROUTE .STK-MED ONE Stop: 09/01/19 13:04 Ephedrine Sulfate (Ephedrine Sulfate) Confirm Administered Dose 50 mg .ROUTE .STK-MED ONE Stop: 09/01/19 07:30 Fentanyl (Sublimaze) Confirm Administered Dose 100 mcg .ROUTE .STK-MED ONE Stop: 09/01/19 07:30 Fentanyl (Sublimaze) Confirm Administered Dose 100 mcg .ROUTE .STK-MED ONE Stop: 09/01/19 13:11 Sodium Chloride (Normal Saline) Confirm Administered Dose 0 mls @ as directed .ROUTE .STK-MED ONE Stop: 09/01/19 07:30 Sodium Chloride (Normal Saline) Confirm Administered Dose 20 mls @ as directed .ROUTE .STK-MED ONE Stop: 09/01/19 13:04 Ropivacaine 49.25 ml/Ketorolac Tromethamine 30 mg/Epinephrine HCl 0.5 mg/ Clonidine HCl 80 mcg/ Sodium Chloride 75 mls @ 50 mls/sec INJECT ASDIRECTED [facility] Midazolam HCl (Versed 1 Mg/Ml) Confirm Administered Dose 2 mg .ROUTE .STK-MED ONE Stop: 09/01/19 07:30 Midazolam HCl (Versed 1 Mg/Ml) Confirm Administered Dose 2 mg .ROUTE .STK-MED ONE Stop: 09/01/19 13:10 Midazolam HCl (Versed 1 Mg/Ml) Confirm Administered Dose 2 mg .ROUTE .STK-MED ONE Stop: 09/01/19 13:11 Propofol (Diprivan 20 Ml) Confirm Administered Dose 200 mg .ROUTE .STK-MED ONE Stop: 09/01/19 07:29 Propofol (Diprivan 20 Ml) Confirm Administered Dose 200 mg .ROUTE .STK-MED ONE Stop: 09/01/19 13:11 Propofol (Diprivan 20 Ml) Confirm Administered Dose 200 mg .ROUTE .STK-MED ONE Stop: 09/01/19 13:11 Propofol (Diprivan 20 Ml) Confirm Administered Dose 200 mg .ROUTE .STK-MED ONE Stop: 09/01/19 13:12 Propofol (Diprivan 20 Ml) Confirm Administered Dose 400 mg .ROUTE .STK-MED ONE Stop: 09/01/19 14:59 Propofol (Diprivan 20 Ml) Confirm Administered Dose 200 mg .ROUTE .STK-MED ONE Stop: 09/01/19 15:51 Propofol (Diprivan 20 Ml) Confirm Administered Dose 200 mg .ROUTE .STK-MED ONE Stop: 09/01/19 15:52 Rocuronium [place] (Zemuron) Confirm Administered Dose 100 mg .ROUTE .STK-MED ONE Stop: 09/01/19 07:30 Tranexamic Acid (Cyklokapron) Confirm Administered Dose 2,000 mg .ROUTE .STK- MED ONE Stop: 09/01/19 13:44 Vancomycin HCl (Vancomycin) Confirm Administered Dose 1 gm .ROUTE .STK-MED ONE Stop: 09/01/19 07:45 Vancomycin HCl (Vancomycin) Confirm Administered Dose 5 gm .ROUTE .STK-MED ONE Stop: 09/01/19 14:34 Vancomycin HCl (Vancomycin) Confirm Administered Dose 1 gm .ROUTE .STK-MED ONE Stop: 09/01/19 15:56 Vancomycin HCl (Vancomycin) Confirm Administered Dose 1 gm .ROUTE .STK-MED ONE Stop: 09/01/19 16:13 - Exam Quality Assessment: DVT Prophylaxis General: Alert, Oriented, Cooperative, No Acute Distress HEENT: Pupils Equal, Pupils Reactive, EOMI, Mucous Membr. Moist/[place] Neck: Supple, Trachea Midline Lungs: Normal Respiratory Effort Extremities: Joint Swelling, Limited Range of Motion Peripheral Pulses: 2+: Dorsalis Pedis (L), Dorsalis Pedis (R) Skin: Warm, Dry, Intact Wound/Incisions: Healing Well, Drainage Neurological: No New Focal Deficit Psy/Mental Status: Alert, Normal Affect, Normal Mood Sepsis Event Note - Evaluation Sepsis Screening Result: No Definite Risk - Focused Exam Vital Signs: Vital Signs Temp Pulse Pulse Resp BP BP Pulse Ox 09/02/19 08:28 144/65 H 09/02/19 08:27 144/65 H 09/02/19 08:25 86 144/65 H 09/02/19 07:22 36.9 C 86 16 144/65 H 95 09/02/19 03:50 37.6 C 88 16 147/63 H 96 09/01/19 22:58 37.5 C 90 17 140/75 94 L Date Exam was Performed: 09/02/19 Time Exam was Performed: 10:42 - Problem List & Annotations (1) Infection of total knee replacement SNOMED Code(s): 920895083 Code(s): T84.59XA - INFECT/INFLM REACTION DUE TO OTH INTERNAL JOINT PROSTH, INIT; Z96.659 - PRESENCE OF UNSPECIFIED ARTIFICIAL KNEE JOINT Status: Acute Current Visit: Yes Qualifiers: Encounter type: initial encounter Qualified Code(s): T84.59XA - Infection and inflammatory reaction due to other internal joint prosthesis, initial encounter; Z96.659 - Presence of unspecified artificial knee joint - Problem List Review Problem List Initiated/Reviewed/Updated: Yes - My Orders Last 24 Hours: My Active Orders 09/01/19 14:30 ANAEROBIC CULTURE Routine CULTURE WOUND [RM] Routine GRAM STAIN [RM] Routine 09/01/19 16:47 Admission Status [Patient Status] [ADT] Routine 09/01/19 18:00 Vancomycin 1.75 gm Sodium Chloride 0.9% [Normal Saline] 500 ml IV Q8H - Plan Plan:: A: Patient is doing very well postoperatively. He had minimal drainage from the wound VAC. No erythema is noted. P: We will start physical therapy and occupational therapy today. He will be weightbearing as tolerated on the right lower extremity. We will arrange for PICC line placement in [place] tomorrow and then arranged for daily vancomycin at [place]. He'll be seen 3 weeks postoperatively. We will decide whether to send him home on the outpatient wound VAC or jaswinder tomorrow. We will plan on re- planning a total knee arthroplasty implant at 6 weeks postoperatively.
[2019-09-02] MEDS ORDERED: Vancomycin 2 GM in Sodium Chloride 0.9% 500 ML IV SCH (22:00)
[2019-09-03 06:03] LABS: BLOOD UREA NITROGEN,BUN 14 mg/dL (7.0-18.0); CARBON DIOXIDE,CO2 28.7 mmol/L (21.0-32.0); CHLORIDE,CL 102 mmol/L (98-107); GLUCOSE RANDOM 114 mg/dL (74-106); POTASSIUM,K 4.4 mmol/L (3.5-5.1); SODIUM,NA 138 mmol/L (136-148)
--- NOTE | 2019-09-03 06:56 | PCM.PN ---
- General Info Date of Service: 09/03/19 - Review of Systems Systems Review Comment:: denies any pain or fevers. - Patient Data Vitals - Most Recent: Last Vital Signs Temp 37.5 C 09/03/19 04:39 Pulse 88 09/03/19 04:39 Resp 17 09/03/19 04:39 BP 152/64 H 09/03/19 04:39 Pulse Ox 95 09/03/19 04:39 Weight - Most Recent: 122.47 kg I&O - Last 24 Hours: Intake & Output 09/02/19 09/02/19 09/03/19 14:59 22:59 06:59 Intake Total 500 1 400 Output Total 600 Balance 500 1 -200 Lab Results Last 24 Hours: Laboratory Results - last 24 hr 09/02/19 09/03/19 09/03/19 Range/Units 17:33 05:40 05:40 Hgb 8.6 L (13.0-17.0) g/dL Hct 28.3 L (38.0-50.0) % Sodium 138 (136-148) mmol/L Potassium 4.4 (3.5-5.1) mmol/L Chloride 102 (98-107) mmol/L Carbon Dioxide 28.7 (21.0-32.0) mmol/L BUN 14 (7.0-18.0) mg/dL Creatinine 1.2 (0.8-1.3) mg/dL Est Cr Clr Drug Dosing 65.90 mL/min Estimated GFR (MDRD) > 60.0 ml/min Glucose 114 H (74-106) mg/dL Calcium 8.1 L (8.5-10.1) mg/dL Vancomycin Trough 24.4 H (5.0-10.0) ug/mL Hernán Results Last 24 Hours: Microbiology 09/01/19 14:30 Gram Stain - Final Knee, Right Wound Culture - Preliminary Med Orders - Current: Current Medications Al Hydroxide/Mg Hydroxide (Mag-Al Plus) 30 ml PO Q4H PRN PRN Reason: Indigestion Amlodipine Besylate (Norvasc) 10 mg PO DAILY [facility] Last Admin: 09/02/19 08:27 Dose: 10 mg Aspirin (Aspirin) 325 mg PO DAILY [facility] Last Admin: 09/02/19 08:25 Dose: 325 mg Bisacodyl (Dulcolax) 10 mg RECTAL DAILY PRN PRN Reason: Constipation Carvedilol (Coreg) 3.125 mg PO BID [facility] Last Admin: 09/02/19 21:31 Dose: 3.125 mg Diphenhydramine HCl (Benadryl) 25 - 50 mg PO Q6H PRN PRN Reason: Itching Docusate Sodium (Colace) 100 mg PO BID PRN PRN Reason: Constipation Enalapril Maleate (Vasotec) 10 mg PO DAILY [facility] Last Admin: 09/02/19 08:28 Dose: 10 mg Famotidine (Pepcid) 40 mg PO DAILY [facility] Last Admin: 09/02/19 08:28 Dose: 40 mg Lactated Ringer's (Ringers, Lactated) 1,000 mls @ 125 mls/hr IV ASDIRECTED [facility] Last Admin: 09/01/19 13:18 Dose: 125 mls/hr Vancomycin HCl 2 gm/ Sodium (Chloride) 500 mls @ 250 mls/hr IV Q12H [facility] Last Admin: 09/02/19 21:55 Dose: 250 mls/hr Ondansetron HCl (Zofran) 4 mg IVPUSH Q6H PRN PRN Reason: Nausea/Vomiting Oxycodone/Acetaminophen (Percocet 325-5 Mg) 1 - 2 tab PO Q4H PRN PRN Reason: Pain Last Admin: 09/02/19 23:05 Dose: 2 tab Polyethylene Glycol (Miralax) 17 gm PO DAILY [facility] Last Admin: 09/02/19 08:26 Dose: 17 gm Sodium Chloride (Saline Flush) 10 ml FLUSH ASDIRECTED PRN PRN Reason: Keep Vein Open Sodium Chloride (Saline Flush) 2.5 ml FLUSH ASDIRECTED PRN PRN Reason: Keep Vein Open Vancomycin HCl (Pharmacy To Dose - Vancomycin) 1 dose .XX ASDIRECTED [facility] Discontinued Medications Bupivacaine HCl (Sensorcaine-Mpf 0.5%) Confirm Administered Dose 10 ml .ROUTE .STK-MED ONE Stop: 09/01/19 13:06 Bupivacaine HCl/Epinephrine Bitart (Marcaine 0.5%/Epinephrine 1:200,000) Confirm Administered Dose 10 ml .ROUTE .STK-MED ONE Stop: 09/01/19 07:45 Cefazolin Sodium (Ancef) Confirm Administered Dose 2 gm .ROUTE .STK-MED ONE Stop: 09/01/19 13:04 Ephedrine Sulfate (Ephedrine Sulfate) Confirm Administered Dose 50 mg .ROUTE .STK-MED ONE Stop: 09/01/19 07:30 Fentanyl (Sublimaze) Confirm Administered Dose 100 mcg .ROUTE .STK-MED ONE Stop: 09/01/19 07:30 Fentanyl (Sublimaze) Confirm Administered Dose 100 mcg .ROUTE .STK-MED ONE Stop: 09/01/19 13:11 Sodium Chloride (Normal Saline) Confirm Administered Dose 0 mls @ as directed .ROUTE .STK-MED ONE Stop: 09/01/19 07:30 Sodium Chloride (Normal Saline) Confirm Administered Dose 20 mls @ as directed .ROUTE .STK-MED ONE Stop: 09/01/19 13:04 Ropivacaine 49.25 ml/Ketorolac Tromethamine 30 mg/Epinephrine HCl 0.5 mg/ Clonidine HCl 80 mcg/ Sodium Chloride 75 mls @ 50 mls/sec INJECT ASDIRECTED [facility] Vancomycin HCl 1.75 gm/ Sodium (Chloride) 500 mls @ 250 mls/hr IV Q8H [facility] Last Admin: 09/02/19 19:44 Dose: Not Given Ketorolac Tromethamine (Toradol) 15 mg IVPUSH Q6H [facility] Stop: 09/02/19 21:00 Last Admin: 09/02/19 18:19 Dose: 15 mg Midazolam HCl (Versed 1 Mg/Ml) Confirm Administered Dose 2 mg .ROUTE .STK-MED ONE Stop: 09/01/19 07:30 Midazolam HCl (Versed 1 Mg/Ml) Confirm Administered Dose 2 mg .ROUTE .STK-MED ONE Stop: 09/01/19 13:10 Midazolam HCl (Versed 1 Mg/Ml) Confirm Administered Dose 2 mg .ROUTE .STK-MED ONE Stop: 09/01/19 13:11 Propofol (Diprivan 20 Ml) Confirm Administered Dose 200 mg .ROUTE .STK-MED ONE Stop: 09/01/19 07:29 Propofol (Diprivan 20 Ml) Confirm Administered Dose 200 mg .ROUTE .STK-MED ONE Stop: 09/01/19 13:11 Propofol (Diprivan 20 Ml) Confirm Administered Dose 200 mg .ROUTE .STK-MED ONE Stop: 09/01/19 13:11 Propofol (Diprivan 20 Ml) Confirm Administered Dose 200 mg .ROUTE .STK-MED ONE Stop: 09/01/19 13:12 Propofol (Diprivan 20 Ml) Confirm Administered Dose 400 mg .ROUTE .STK-MED ONE Stop: 09/01/19 14:59 Propofol (Diprivan 20 Ml) Confirm Administered Dose 200 mg .ROUTE .STK-MED ONE Stop: 09/01/19 15:51 Propofol (Diprivan 20 Ml) Confirm Administered Dose 200 mg .ROUTE .STK-MED ONE Stop: 09/01/19 15:52 Rocuronium [place] (Zemuron) Confirm Administered Dose 100 mg .ROUTE .STK-MED ONE Stop: 09/01/19 07:30 Tranexamic Acid (Cyklokapron) Confirm Administered Dose 2,000 mg .ROUTE .STK- MED ONE Stop: 09/01/19 13:44 Vancomycin HCl (Vancomycin) Confirm Administered Dose 1 gm .ROUTE .STK-MED ONE Stop: 09/01/19 07:45 Vancomycin HCl (Vancomycin) Confirm Administered Dose 5 gm .ROUTE .STK-MED ONE Stop: 09/01/19 14:34 Vancomycin HCl (Vancomycin) Confirm Administered Dose 1 gm .ROUTE .STK-MED ONE Stop: 09/01/19 15:56 Vancomycin HCl (Vancomycin) Confirm Administered Dose 1 gm .ROUTE .STK-MED ONE Stop: 09/01/19 16:13 - Exam General: Alert, Oriented Neck: Supple Lungs: Clear to Auscultation, Normal Respiratory Effort Cardiovascular: Regular Rate, Regular Rhythm GI/Abdominal Exam: Normal Bowel Sounds, Soft, Non-Tender Extremities: No Pedal Edema Sepsis Event Note - Evaluation Sepsis Screening Result: No Definite Risk - Focused Exam Vital Signs: Vital Signs Temp Pulse Pulse Resp BP BP Pulse Ox 09/03/19 04:39 37.5 C 88 17 152/64 H 95 09/02/19 23:00 36.8 C 91 16 113/53 L 93 L 09/02/19 21:31 94 145/65 H 09/02/19 19:25 36.7 C 98 16 132/55 L 95 Date Exam was Performed: 09/03/19 Time Exam was Performed: 06:54 - Problem List Review Problem List Initiated/Reviewed/Updated: Yes - My Orders Last 24 Hours: My Active Orders 09/02/19 09:00 Enalapril [Vasotec] 10 mg PO DAILY amLODIPine [Norvasc] 10 mg PO DAILY carvediloL [Coreg] 3.125 mg PO BID - Plan Plan:: 63 yo male s/p for 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 HTN: continue enalapril, Coreg, and amlodipine Infected right TKA: Dr. Lieberman has arranged for PICC and outpatient IV antibiotics.
[2019-09-03] MEDS ORDERED: Vancomycin 2 GM in Sodium Chloride 0.9% 500 ML IV ONE (08:00)
[2019-09-03] MEDS: Acetaminophen/oxyCODONE 325-5 MG Tab PO PRN (08:03)
[2019-09-03] MEDS: amLODIPine 5 MG Tab PO SCH (08:59)
[2019-09-03] MEDS: Carvedilol 3.125 MG Tab PO SCH (08:59)
[2019-09-03] MEDS: Aspirin 325 MG Tab PO SCH (09:00)
[2019-09-03] MEDS: Polyethylene Glycol 3350 Powder 17 GM Packet PO SCH (09:00)
[2019-09-03] MEDS: Famotidine 20 MG Tab PO SCH (09:00)
--- NOTE | 2019-09-03 09:05 | PCM.SURGPN ---
- General Info Date of Service: 09/03/19 (829) Date of Surgery/Procedure: 09/01/19 POD#: 2 Post-Op Diagnosis: Deep infection, right total knee arthroplasty Functional Status: Reports: Pain Controlled (pain in right knee controlled with oral narcotics), Tolerating Diet, Ambulating (states he was up walking in the room yesterday with staff and walker) - Review of Systems General: Denies: Fever Pulmonary: Denies: Shortness of Breath Cardiovascular: Denies: Chest Pain Musculoskeletal: Reports: Joint Pain, Joint Swelling (mild soft tissue swelling right knee. ) Neurological: Reports: No Symptoms Psychiatric: Reports: No Symptoms - Patient Data Vitals - Most Recent: Last Vital Signs Temp 37.5 C 09/03/19 04:39 Pulse 88 09/03/19 04:39 Resp 17 09/03/19 04:39 BP 152/64 H 09/03/19 04:39 Pulse Ox 95 09/03/19 04:39 Weight - Most Recent: 122.47 kg I&O - Last 24 Hours: Intake & Output 09/02/19 09/03/19 09/03/19 22:59 06:59 14:59 Intake Total 1 400 Output Total 600 Balance 1 -200 Lab Results Last 24 Hrs: Laboratory Results - last 24 hr 09/02/19 09/03/19 09/03/19 Range/Units 17:33 05:40 05:40 Hgb 8.6 L (13.0-17.0) g/dL Hct 28.3 L (38.0-50.0) % Sodium 138 (136-148) mmol/L Potassium 4.4 (3.5-5.1) mmol/L Chloride 102 (98-107) mmol/L Carbon Dioxide 28.7 (21.0-32.0) mmol/L BUN 14 (7.0-18.0) mg/dL Creatinine 1.2 (0.8-1.3) mg/dL Est Cr Clr Drug Dosing 65.90 mL/min Estimated GFR (MDRD) > 60.0 ml/min Glucose 114 H (74-106) mg/dL Calcium 8.1 L (8.5-10.1) mg/dL Vancomycin Trough 24.4 H (5.0-10.0) ug/mL Hernán Results Last 24 Hrs: Microbiology 09/01/19 14:30 Gram Stain - Final Knee, Right Wound Culture - Final (Mrsa) Staphylococcus Aureus Med Orders - Current: Current Medications Al Hydroxide/Mg Hydroxide (Mag-Al Plus) 30 ml PO Q4H PRN PRN Reason: Indigestion Amlodipine Besylate (Norvasc) 10 mg PO DAILY [facility] Last Admin: 09/02/19 08:27 Dose: 10 mg Aspirin (Aspirin) 325 mg PO DAILY [facility] Last Admin: 09/02/19 08:25 Dose: 325 mg Bisacodyl (Dulcolax) 10 mg RECTAL DAILY PRN PRN Reason: Constipation Carvedilol (Coreg) 3.125 mg PO BID [facility] Last Admin: 09/02/19 21:31 Dose: 3.125 mg Diphenhydramine HCl (Benadryl) 25 - 50 mg PO Q6H PRN PRN Reason: Itching Docusate Sodium (Colace) 100 mg PO BID PRN PRN Reason: Constipation Enalapril Maleate (Vasotec) 10 mg PO DAILY [facility] Last Admin: 09/02/19 08:28 Dose: 10 mg Famotidine (Pepcid) 40 mg PO DAILY [facility] Last Admin: 09/02/19 08:28 Dose: 40 mg Lactated Ringer's (Ringers, Lactated) 1,000 mls @ 125 mls/hr IV ASDIRECTED [facility] Last Admin: 09/01/19 13:18 Dose: 125 mls/hr Vancomycin HCl 2 gm/ Sodium (Chloride) 500 mls @ 250 mls/hr IV ONETIME ONE Stop: 09/03/19 09:59 Last Admin: 09/03/19 07:51 Dose: 250 mls/hr Ondansetron HCl (Zofran) 4 mg IVPUSH Q6H PRN PRN Reason: Nausea/Vomiting Oxycodone/Acetaminophen (Percocet 325-5 Mg) 1 - 2 tab PO Q4H PRN PRN Reason: Pain Last Admin: 09/03/19 08:03 Dose: 2 tab Polyethylene Glycol (Miralax) 17 gm PO DAILY [facility] Last Admin: 09/02/19 08:26 Dose: 17 gm Sodium Chloride (Saline Flush) 10 ml FLUSH ASDIRECTED PRN PRN Reason: Keep Vein Open Sodium Chloride (Saline Flush) 2.5 ml FLUSH ASDIRECTED PRN PRN Reason: Keep Vein Open Vancomycin HCl (Pharmacy To Dose - Vancomycin) 1 dose .XX ASDIRECTED [facility] Discontinued Medications Bupivacaine HCl (Sensorcaine-Mpf 0.5%) Confirm Administered Dose 10 ml .ROUTE .STK-MED ONE Stop: 09/01/19 13:06 Bupivacaine HCl/Epinephrine Bitart (Marcaine 0.5%/Epinephrine 1:200,000) Confirm Administered Dose 10 ml .ROUTE .STK-MED ONE Stop: 09/01/19 07:45 Cefazolin Sodium (Ancef) Confirm Administered Dose 2 gm .ROUTE .STK-MED ONE Stop: 09/01/19 13:04 Ephedrine Sulfate (Ephedrine Sulfate) Confirm Administered Dose 50 mg .ROUTE .STK-MED ONE Stop: 09/01/19 07:30 Fentanyl (Sublimaze) Confirm Administered Dose 100 mcg .ROUTE .STK-MED ONE Stop: 09/01/19 07:30 Fentanyl (Sublimaze) Confirm Administered Dose 100 mcg .ROUTE .STK-MED ONE Stop: 09/01/19 13:11 Sodium Chloride (Normal Saline) Confirm Administered Dose 0 mls @ as directed .ROUTE .STK-MED ONE Stop: 09/01/19 07:30 Sodium Chloride (Normal Saline) Confirm Administered Dose 20 mls @ as directed .ROUTE .STK-MED ONE Stop: 09/01/19 13:04 Ropivacaine 49.25 ml/Ketorolac Tromethamine 30 mg/Epinephrine HCl 0.5 mg/ Clonidine HCl 80 mcg/ Sodium Chloride 75 mls @ 50 mls/sec INJECT ASDIRECTED [facility] Vancomycin HCl 1.75 gm/ Sodium (Chloride) 500 mls @ 250 mls/hr IV Q8H [facility] Last Admin: 09/02/19 19:44 Dose: Not Given Vancomycin HCl 2 gm/ Sodium (Chloride) 500 mls @ 250 mls/hr IV Q12H [facility] Last Admin: 09/02/19 21:55 Dose: 250 mls/hr Ketorolac Tromethamine (Toradol) 15 mg IVPUSH Q6H [facility] Stop: 09/02/19 21:00 Last Admin: 09/02/19 18:19 Dose: 15 mg Midazolam HCl (Versed 1 Mg/Ml) Confirm Administered Dose 2 mg .ROUTE .STK-MED ONE Stop: 09/01/19 07:30 Midazolam HCl (Versed 1 Mg/Ml) Confirm Administered Dose 2 mg .ROUTE .STK-MED ONE Stop: 09/01/19 13:10 Midazolam HCl (Versed 1 Mg/Ml) Confirm Administered Dose 2 mg .ROUTE .STK-MED ONE Stop: 09/01/19 13:11 Propofol (Diprivan 20 Ml) Confirm Administered Dose 200 mg .ROUTE .STK-MED ONE Stop: 09/01/19 07:29 Propofol (Diprivan 20 Ml) Confirm Administered Dose 200 mg .ROUTE .STK-MED ONE Stop: 09/01/19 13:11 Propofol (Diprivan 20 Ml) Confirm Administered Dose 200 mg .ROUTE .STK-MED ONE Stop: 09/01/19 13:11 Propofol (Diprivan 20 Ml) Confirm Administered Dose 200 mg .ROUTE .STK-MED ONE Stop: 09/01/19 13:12 Propofol (Diprivan 20 Ml) Confirm Administered Dose 400 mg .ROUTE .STK-MED ONE Stop: 09/01/19 14:59 Propofol (Diprivan 20 Ml) Confirm Administered Dose 200 mg .ROUTE .STK-MED ONE Stop: 09/01/19 15:51 Propofol (Diprivan 20 Ml) Confirm Administered Dose 200 mg .ROUTE .STK-MED ONE Stop: 09/01/19 15:52 Rocuronium [place] (Zemuron) Confirm Administered Dose 100 mg .ROUTE .STK-MED ONE Stop: 09/01/19 07:30 Tranexamic Acid (Cyklokapron) Confirm Administered Dose 2,000 mg .ROUTE .STK- MED ONE Stop: 09/01/19 13:44 Vancomycin HCl (Vancomycin) Confirm Administered Dose 1 gm .ROUTE .STK-MED ONE Stop: 09/01/19 07:45 Vancomycin HCl (Vancomycin) Confirm Administered Dose 5 gm .ROUTE .STK-MED ONE Stop: 09/01/19 14:34 Vancomycin HCl (Vancomycin) Confirm Administered Dose 1 gm .ROUTE .STK-MED ONE Stop: 09/01/19 15:56 Vancomycin HCl (Vancomycin) Confirm Administered Dose 1 gm .ROUTE .STK-MED ONE Stop: 09/01/19 16:13 - Exam Wound/Incisions: Drainage (bloody drainage in Wound Vac tubing and canister), Other (Wound Vac dressing intact right knee, compressed with active suction. Current canister full and nursing staff changing canister at current time.). No : Erythema Quality Assessment: DVT Prophylaxis (ASA 325mg, ambulation) General: Alert, Oriented, Cooperative, No Acute Distress, Other (Helder is in good spirits. "Ready to get home to my own bed." ) HEENT: Pupils Equal Lungs: Normal Respiratory Effort Cardiovascular: Other (PP2+ RLE) Extremities: Other (No erythema, swelling or pain to right calf. Sensation grossly intact. ). No: Pedal Edema Skin: Warm, Dry Neurological: Normal Speech Psy/Mental Status: Alert, Normal Affect, Normal Mood Sepsis Event Note - Evaluation Sepsis Screening Result: No Definite Risk - Focused Exam Vital Signs: Vital Signs Temp Pulse Pulse Resp BP BP Pulse Ox 09/03/19 04:39 37.5 C 88 17 152/64 H 95 09/02/19 23:00 36.8 C 91 16 113/53 L 93 L 09/02/19 21:31 94 145/65 H Date Exam was Performed: 09/03/19 Time Exam was Performed: 08:59 - Problem List Review Problem List Initiated/Reviewed/Updated: Yes - My Orders Last 24 Hours: Active Orders 24 hr Category Date Time Status Ready for Discharge [RC] PER UNIT ROUTINE Care 09/03/19 08:25 Ordered PT Evaluation and Treatment [CONS] Routine Cons 09/02/19 09:00 Active VANCOMYCIN TROUGH [CHEM] Routine Lab 09/04/19 09:30 Ordered Aspirin Med 09/02/19 09:00 Active 325 mg PO DAILY Enalapril [Vasotec] Med 09/02/19 09:00 Active 10 mg PO DAILY Famotidine [Pepcid] Med 09/02/19 09:00 Active 40 mg PO DAILY Vancomycin 2 gm Med 09/03/19 08:00 Active Sodium Chloride 0.9% [Normal Saline] 500 ml IV ONETIME amLODIPine [Norvasc] Med 09/02/19 09:00 Active 10 mg PO DAILY carvediloL [Coreg] Med 09/02/19 09:00 Active 3.125 mg PO BID polyethylene glycoL 3350 [MiraLAX] Med 09/02/19 09:00 Active 17 gm PO DAILY Convert IV to Saline Lock [OM.PC] PRN Oth 09/02/19 17:00 Ordered Medication Orders Al Hydroxide/Mg Hydroxide (Mag-Al Plus) 30 ml PO Q4H PRN PRN Reason: Indigestion Amlodipine Besylate (Norvasc) 10 mg PO DAILY [facility] Last Admin: 09/02/19 08:27 Dose: 10 mg Aspirin (Aspirin) 325 mg PO DAILY [facility] Last Admin: 09/02/19 08:25 Dose: 325 mg Bisacodyl (Dulcolax) 10 mg RECTAL DAILY PRN PRN Reason: Constipation Carvedilol (Coreg) 3.125 mg PO BID [facility] Last Admin: 09/02/19 21:31 Dose: 3.125 mg Admin: 09/02/19 08:25 Dose: 3.125 mg Diphenhydramine HCl (Benadryl) 25 - 50 mg PO Q6H PRN PRN Reason: Itching Docusate Sodium (Colace) 100 mg PO BID PRN PRN Reason: Constipation Enalapril Maleate (Vasotec) 10 mg PO DAILY [facility] Last Admin: 09/02/19 08:28 Dose: 10 mg Famotidine (Pepcid) 40 mg PO DAILY [facility] Last Admin: 09/02/19 08:28 Dose: 40 mg Lactated Ringer's (Ringers, Lactated) 1,000 mls @ 125 mls/hr IV ASDIRECTED [facility] Last Admin: 09/01/19 13:18 Dose: 125 mls/hr Vancomycin HCl 2 gm/ Sodium (Chloride) 500 mls @ 250 mls/hr IV ONETIME ONE Stop: 09/03/19 09:59 Last Admin: 09/03/19 07:51 Dose: 250 mls/hr Ondansetron HCl (Zofran) 4 mg IVPUSH Q6H PRN PRN Reason: Nausea/Vomiting Oxycodone/Acetaminophen (Percocet 325-5 Mg) 1 - 2 tab PO Q4H PRN PRN Reason: Pain Last Admin: 09/03/19 08:03 Dose: 2 tab Admin: 09/02/19 23:05 Dose: 2 tab Admin: 09/02/19 12:46 Dose: 2 tab Admin: 09/02/19 08:29 Dose: 2 tab Admin: 09/02/19 03:51 Dose: 2 tab Admin: 09/01/19 23:00 Dose: 2 tab Admin: 09/01/19 18:39 Dose: 2 tab Polyethylene Glycol (Miralax) 17 gm PO DAILY [facility] Last Admin: 09/02/19 08:26 Dose: 17 gm Sodium Chloride (Saline Flush) 10 ml FLUSH ASDIRECTED PRN PRN Reason: Keep Vein Open Sodium Chloride (Saline Flush) 2.5 ml FLUSH ASDIRECTED PRN PRN Reason: Keep Vein Open Vancomycin HCl (Pharmacy To Dose - Vancomycin) 1 dose .XX ASDIRECTED [facility] - Assessment Assessment (Free Text/Narrative):: 1) 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 VSS/afebrile. Hg 8.6. He is asymptomatic (no c/o SOB, lightheadedness or extreme fatigue). Previous Hg was 9.1 Arrangements have been made for insertion of PICC line for 6 weeks of IV Vancomycin therapy, with appt scheduled this afternoon. Dosing of IV vancomycin under the direction of pharmacist. Arrangements have been made for IV infusion therapy at [facility] in [place], [place], in addition to WoundVac dressing changes every 3-4 days. He will be discharged with wound vac canister system, stating he is familiar with this machine from his previous use on Lt knee infection s/p TKA Fall of 2016. Rx written for Percocet for pain management. Continue ASA 325mg (Rx written) for DVT prophylaxis. Advised frequent use of ice per Polar care machine to knee to minimize swelling and decrease pain. Follow up appt scheduled with myself at orthopedic clinic in 3 weeks, for suture removal. He was advised to contact orthopedic clinic sooner if acute concerns or questions.
== END 2019-09-03 10:25 | disposition home or self-care (01) | DRG 468 ==
LOC: EDSTATUS 09:30 → MW.MS 16:47
PROVIDERS: ADMIT Orthopaedic Surgery; ATTEND Orthopaedic Surgery
PROC: 0SPC0JZ Removal of Synthetic Substitute from Right Knee Joint, Open Approach (ICD-10-PCS; principal; 2019-09-01)
PROC: 0SRC0EZ Replacement of Right Knee Joint with Articulating Spacer, Open Approach (ICD-10-PCS; 2019-09-01)
PROC: 0SBC0ZZ Excision of Right Knee Joint, Open Approach (ICD-10-PCS; 2019-09-01)
PROC: 3E0U029 Introduction of Other Anti-infective into Joints, Open Approach (ICD-10-PCS; 2019-09-01)
DX: T84.53XA Infection and inflammatory reaction due to internal right knee prosthesis, initial encounter (principal); I10 Essential (primary) hypertension; M19.90 Unspecified osteoarthritis, unspecified site; E66.9 Obesity, unspecified; F17.200 Nicotine dependence, unspecified, uncomplicated; Z79.82 Long term (current) use of aspirin; Z79.899 Other long term (current) drug therapy; Z68.38 Body mass index [BMI] 38.0-38.9, adult
CPT/HCPCS: 36415; 80048; 80202; 85014; 85018; 85025; 87070; 87075; 87077; 87186; 87205; 97161-GP; A9270-GY; J0171; J0330; J0690; J0735; J1885; J2250; J2704; J2795; J3010; J3370; J3490; J7040; J7050; J7120

== ENCOUNTER 2019-09-06 15:34 | Inpatient (IN) | payer MEDICAID, OTHER ==
--- NOTE | 2019-09-06 16:38 | EDM.PDOC ---
ED HPI GENERAL MEDICAL PROBLEM - General Chief Complaint: Lower Extremity Injury/Pain Stated Complaint: WOUND OPENING ON RT KNEE Time Seen by Provider: 09/06/19 15:35 Source of Information: Reports: Patient History Limitations: Reports: No Limitations - History of Present Illness INITIAL COMMENTS - FREE TEXT/NARRATIVE: HISTORY AND PHYSICAL: History of present illness: Patient is a 63-year-old male who presents to the ED today with concern of wound opening of his right knee. Patient had a recent total right knee replacement done by Dr. Lieberman and had a postop area of abscess. On the of this month, 5 days ago, patient had removal of hardware, drainage of abscess, and placement of a wound VAC. Patient was discharged with close instruction for IV vancomycin with a PICC line to be done in [place]. Patient states that he did not go and get antibiotics on Friday or Friday but went in today and had the wound reevaluated in [place] and was told that it was worsening and he needed to come to [place]. Patient states he did receive a dose of IV antibiotics today. Patient denies any other symptoms or concerns. Patient denies fever, chills, chest pain, shortness of breath, or cough. Denies headache, neck stiff ness, change in vision, syncope, or near syncope. Denies nausea, vomiting, abdominal pain, diarrhea, constipation, or dysuria. Has not noted any blood in urine or stool. Patient has been eating and drinking appropriately. Review of systems: As per history of present illness and below otherwise all systems reviewed and negative. Past medical history: As per history of present illness and as reviewed below otherwise noncontributory. Surgical history: As per history of present illness and as reviewed below otherwise noncontributory. Social history: See social history for further information Family history: As per history of present illness and as reviewed below otherwise noncontributory. Physical exam: General: Patient is alert, oriented, and in no acute distress. Patient sitting comfortably on exam table. HEENT: Atraumatic, normocephalic, pupils equal and reactive bilaterally, negative for conjunctival pallor or scleral icterus, mucous membranes moist, TMs normal bilaterally, throat clear, neck supple, nontender, trachea midline. No drooling or trismus noted. No meningeal signs. No hot potato voice noted. Lungs: Clear to auscultation, breath sounds equal bilaterally, chest nontender. Heart: S1S2, regular rate and rhythm without overt murmur Abdomen: Soft, nondistended, nontender. Negative for masses or hepatosplenomegaly. Negative for costovertebral tenderness. Pelvis: Stable nontender. Genitourinary: Deferred. Rectal: Deferred. Skin: Intact, warm, dry. No lesions or rashes noted. Extremities: There is a 5cm area of dehiscence at the inferior surgical incision with a small amount of reddish/pus discharge. Otherwise, atraumatic, negative for cords or calf pain. Neurovascular unremarkable. Neuro: Awake, alert, oriented. Cranial nerves II through XII unremarkable. Cerebellum unremarkable. Motor and sensory unremarkable throughout. Exam nonfocal. Notes: Dr. Lieberman, orthopedic refrigeration installer, consulted on patient and will admit to observation. Voices understanding and is agreeable to plan of care. Denies any further questions or concerns at this time. Diagnostics: CBC, CMP, lactate, blood culture x 2, knee XR, CRP, ESR Therapeutics: Sterile dressing placed by nursing staff Impression: Post-op wound infection Plan: Admit to observation to Dr. Lieberman, orthopedics Definitive disposition and diagnosis as appropriate pending reevaluation and review of above. right knee Pain Score (Numeric/FACES): 3 - Related Data Allergies Allergy/AdvReac Type Severity Reaction Status Date / Time No Known Allergies Allergy Verified 09/06/19 15:58 Home Meds: Home Meds Carvedilol [Coreg] 3.125 mg PO BID 07/23/19 [History] Enalapril Maleate 10 mg PO DAILY 07/23/19 [History] amLODIPine Besylate [Amlodipine Besylate] 10 mg PO DAILY 07/23/19 [History] Acetaminophen/oxyCODONE [Percocet 325-5 MG] 1 - 2 tab PO Q6HR PRN #40 tablet [Rx] Pharmacy to Dose - Vancomycin 1 dose .XX ASDIRECTED each 09/03/19 [Rx] Past Medical History HEENT History: Reports: Other (See Below) Other HEENT History: wears glasses Cardiovascular History: Reports: Hypertension Respiratory History: Reports: None Gastrointestinal History: Reports: Colon Polyp Genitourinary History: Reports: None Musculoskeletal History: Reports: Fracture, Osteoarthritis Other Musculoskeletal History: hx fx hand Neurological History: Reports: None Psychiatric History: Reports: None Endocrine/Metabolic History: Reports: Obesity/BMI 30+ Hematologic History: Reports: None Immunologic History: Reports: None Oncologic (Cancer) History: Reports: None Dermatologic History: Reports: None - Past Surgical History Head Surgeries/Procedures: Reports: None HEENT Surgical History: Reports: None Cardiovascular Surgical History: Reports: None Respiratory Surgical History: Reports: None GI Surgical History: Reports: Colonoscopy Male Surgical History: Reports: None Endocrine Surgical History: Reports: None Neurological Surgical History: Reports: None Musculoskeletal Surgical History: Reports: Knee Replacement Other Musculoskeletal Surgeries/Procedures:: hx left knee replacement 5 years ago in [place] under spinal anesthesia, right knee replacement in july 2019 Oncologic Surgical History: Reports: None Dermatological Surgical History: Reports: None Social & Family History - Family History Family Medical History: Noncontributory - Tobacco Use Smoking Status *Q: Current Some Day Smoker Years of Tobacco use: 30 Packs/Tins Daily: 0.1 - Caffeine Use Caffeine Use: Reports: Coffee, Soda - Recreational Drug Use Recreational Drug Use: No Review of Systems - Review of Systems Review Of Systems: Comprehensive ROS is negative, except as noted in HPI. ED EXAM, GENERAL - Physical Exam Exam: See Below (see dictation) Course - Vital Signs Last Recorded V/S: Last Vital Signs Temp 97.7 F 09/06/19 15:55 Pulse 78 09/06/19 15:55 Resp 18 09/06/19 15:55 BP 127/57 L 09/06/19 15:55 Pulse Ox 96 09/06/19 15:55 - Orders/Labs/Meds Orders: Active Orders 24 hr Category Date Time Status Admission Status [Patient Status] [ADT] Stat ADT 09/06/19 17:16 Ordered CRP [C-REACTIVE PROTEIN] [CHEM] Stat Lab 09/06/19 17:14 Ordered CULTURE BLOOD [BC] Stat Lab 09/06/19 16:20 Received CULTURE BLOOD [BC] Stat Lab 09/06/19 16:30 Received SEDIMENTATION RATE AUTO [HEME] Stat Lab 09/06/19 17:14 Ordered Blood Culture x2 Reflex Set [OM.PC] Stat Oth 09/06/19 15:55 Ordered Labs: Laboratory Tests 09/06/19 09/06/19 09/06/19 Range/Units 16:20 16:20 16:20 WBC 7.97 (4.0-11.0) K/uL RBC 3.10 L (4.50-5.90) M/uL Hgb 8.2 L (13.0-17.0) g/dL Hct 26.7 L (38.0-50.0) % MCV 86.1 (80.0-98.0) fL MCH 26.5 L (27.0-32.0) pg MCHC 30.7 L (31.0-37.0) g/dL RDW Std Deviation 50.6 (28.0-62.0) fl RDW Coeff of Yesika 16 H (11.0-15.0) % Plt Count 717 H (150-400) K/uL MPV 7.70 (7.40-12.00) fL Neut % (Auto) 69.6 (48.0-80.0) % Lymph % (Auto) 18.2 (16.0-40.0) % [place] % (Auto) 8.2 (0.0-15.0) % Eos % (Auto) 3.5 (0.0-7.0) % Baso % (Auto) 0.5 (0.0-1.5) % Neut # (Auto) 5.6 (1.4-5.7) K/uL Lymph # (Auto) 1.5 (0.6-2.4) K/uL [place] # (Auto) 0.7 (0.0-0.8) K/uL Eos # (Auto) 0.3 (0.0-0.7) K/uL Baso # (Auto) 0.0 (0.0-0.1) K/uL Nucleated RBC % 0.0 /100WBC Nucleated RBCs # 0 K/uL Lactate 0.9 (0.20-2.00) mmol/L Sodium 140 (136-148) mmol/L Potassium 4.1 (3.5-5.1) mmol/L Chloride 105 (98-107) mmol/L Carbon Dioxide 25.4 (21.0-32.0) mmol/L BUN 15 (7.0-18.0) mg/dL Creatinine 1.1 (0.8-1.3) mg/dL Est Cr Clr Drug Dosing 71.89 mL/min Estimated GFR (MDRD) > 60.0 ml/min Glucose 112 H (74-106) mg/dL Calcium 8.3 L (8.5-10.1) mg/dL Total Bilirubin 0.2 (0.2-1.0) mg/dL AST 16 (15-37) IU/L ALT 28 (14-63) IU/L Alkaline Phosphatase 88 (46-116) U/L Total Protein 7.8 (6.4-8.2) g/dL Albumin 2.5 L (3.4-5.0) g/dL Globulin 5.3 H (2.6-4.0) g/dL Albumin/Globulin Ratio 0.5 L (0.9-1.6) Departure - Departure Time of Disposition: 17:21 Disposition: Refer to Observation Clinical Impression: Postoperative wound infection - Discharge Information Referrals: PCP,Not In Area [Primary Care Provider] - Forms: ED Department Discharge Sepsis Event Note - Evaluation Sepsis Screening Result: No Definite Risk - Focused Exam Vital Signs: Vital Signs Temp Pulse Resp BP Pulse Ox 09/06/19 15:55 97.7 F 78 18 127/57 L 96 Date Exam was Performed: 09/06/19 Time Exam was Performed: 17:21 - My Orders Last 24 Hours: My Active Orders 09/06/19 15:55 Blood Culture x2 Reflex Set [OM.PC] Stat 09/06/19 16:20 CULTURE BLOOD [BC] Stat 09/06/19 16:30 CULTURE BLOOD [BC] Stat 09/06/19 17:14 CRP [C-REACTIVE PROTEIN] [CHEM] Stat SEDIMENTATION RATE AUTO [HEME] Stat 09/06/19 17:16 Admission Status [Patient Status] [ADT] Stat - Assessment/Plan Last 24 Hours: My Active Orders 09/06/19 15:55 Blood Culture x2 Reflex Set [OM.PC] Stat 09/06/19 16:20 CULTURE BLOOD [BC] Stat 09/06/19 16:30 CULTURE BLOOD [BC] Stat 09/06/19 17:14 CRP [C-REACTIVE PROTEIN] [CHEM] Stat SEDIMENTATION RATE AUTO [HEME] Stat 09/06/19 17:16 Admission Status [Patient Status] [ADT] Stat
--- NOTE | 2019-09-06 17:10 | CR ---
Right knee: 3 views of the right knee were obtained. Comparison: Previous right knee exam of 08/31/19. Knee prosthesis has been removed. Antibiotic spacer appears to be present as well as antibiotic beads. Skin charlene are present. No additional bony abnormality is seen. Soft tissue swelling is present. Impression: 1. Removal of knee prosthesis and placement of antibiotic beads and probable antibiotic spacer. 2. Skin charlene. 3. Soft tissue swelling. Diagnostic code #3 This report was dictated in MDT
[2019-09-06 17:12] LABS: BLOOD UREA NITROGEN,BUN 15 mg/dL (7.0-18.0); CARBON DIOXIDE,CO2 25.4 mmol/L (21.0-32.0); CHLORIDE,CL 105 mmol/L (98-107); GLUCOSE RANDOM 112 mg/dL (74-106); POTASSIUM,K 4.1 mmol/L (3.5-5.1); SODIUM,NA 140 mmol/L (136-148)
--- NOTE | 2019-09-06 18:15 | PCM.HP.2 ---
H&P History of Present Illness - General Date of Service: 09/06/19 Admit Problem/Dx: Admission Diagnosis/Problem Admission Diagnosis/Problem Infection of knee Source of Information: Patient, Provider History Limitations: Reports: No Limitations - History of Present Illness Initial Comments - Free Text/Narative: noticed wound dehiscence. non functioning wound vac Onset of Symptoms: Reports: Gradual Duration of Symptoms: Reports: Day(s): Location: Reports: Lower Extremity, Right Severity: Mild Improves with: Reports: Immobilization Worsens with: Reports: Movement right knee Pain Score (Numeric/FACES): 3 - Related Data Allergies/Adverse Reactions: Allergies Allergy/AdvReac Type Severity Reaction Status Date / Time No Known Allergies Allergy Verified 09/06/19 15:58 Home Medications: Home Meds Carvedilol [Coreg] 3.125 mg PO BID 07/23/19 [History] Enalapril Maleate 10 mg PO DAILY 07/23/19 [History] amLODIPine Besylate [Amlodipine Besylate] 10 mg PO DAILY 07/23/19 [History] Acetaminophen/oxyCODONE [Percocet 325-5 MG] 1 - 2 tab PO Q6HR PRN #40 tablet [Rx] Pharmacy to Dose - Vancomycin 1 dose .XX ASDIRECTED each 09/03/19 [Rx] Past Medical History HEENT History: Reports: Other (See Below) Other HEENT History: wears glasses Cardiovascular History: Reports: Hypertension Respiratory History: Reports: None Gastrointestinal History: Reports: Colon Polyp Genitourinary History: Reports: None Musculoskeletal History: Reports: Fracture, Osteoarthritis Other Musculoskeletal History: hx fx hand Neurological History: Reports: None Psychiatric History: Reports: None Endocrine/Metabolic History: Reports: Obesity/BMI 30+ Hematologic History: Reports: None Immunologic History: Reports: None Oncologic (Cancer) History: Reports: None Dermatologic History: Reports: None - Past Surgical History Head Surgeries/Procedures: Reports: None HEENT Surgical History: Reports: None Cardiovascular Surgical History: Reports: None Respiratory Surgical History: Reports: None GI Surgical History: Reports: Colonoscopy Male Surgical History: Reports: None Endocrine Surgical History: Reports: None Neurological Surgical History: Reports: None Musculoskeletal Surgical History: Reports: Knee Replacement Other Musculoskeletal Surgeries/Procedures:: hx left knee replacement 5 years ago in [place] under spinal anesthesia, right knee replacement in july 2019 Oncologic Surgical History: Reports: None Dermatological Surgical History: Reports: None Social & Family History - Family History Family Medical History: Noncontributory - Tobacco Use Smoking Status *Q: Current Some Day Smoker Years of Tobacco use: 30 Packs/Tins Daily: 0.1 - Caffeine Use Caffeine Use: Reports: Coffee, Soda - Recreational Drug Use Recreational Drug Use: No H&P Review of Systems - Review of Systems: Review Of Systems: See Below General: Reports: No Symptoms HEENT: Reports: No Symptoms Pulmonary: Reports: No Symptoms Cardiovascular: Reports: No Symptoms Gastrointestinal: Reports: No Symptoms Genitourinary: Reports: No Symptoms Musculoskeletal: Reports: Joint Pain, Joint Swelling Skin: Reports: No Symptoms Psychiatric: Reports: No Symptoms Neurological: Reports: No Symptoms Hematologic/Lymphatic: Reports: No Symptoms Immunologic: Reports: No Symptoms Exam - Exam Exam: See Below - Vital Signs Vital Signs: Last Vital Signs Temp 37.7 C 09/06/19 18:10 Pulse 82 09/06/19 18:10 Resp 17 09/06/19 18:10 BP 120/72 09/06/19 18:10 Pulse Ox 95 09/06/19 18:10 Weight: 123.377 kg - Exam General: Alert, Oriented, Cooperative HEENT: Conjunctiva Clear, EACs Clear, EOMI, Hearing Intact, Mucosa Moist & [place] , Pupils Equal, Pupils Reactive Neck: Supple, Trachea Midline Lungs: Clear to Auscultation, Normal Respiratory Effort Cardiovascular: Regular Rate, Regular Rhythm Extremities: Joint Swelling, Limited Range of Motion Peripheral Pulses: 2+: Dorsalis Pedis (L), Dorsalis Pedis (R) Skin: Warm, Wound Neurological: Cranial Nerves Intact Neuro Extensive - Mental Status: Alert, Oriented x3, Normal Mood/Affect, Normal Cognition, Memory Intact Psychiatric: Alert, Normal Affect, Normal Mood - Patient Data Lab Results Last 24 hrs: Laboratory Results - last 24 hr 09/06/19 09/06/19 09/06/19 Range/Units 16:20 16:20 16:20 WBC 7.97 (4.0-11.0) K/uL RBC 3.10 L (4.50-5.90) M/uL Hgb 8.2 L (13.0-17.0) g/dL Hct 26.7 L (38.0-50.0) % MCV 86.1 (80.0-98.0) fL MCH 26.5 L (27.0-32.0) pg MCHC 30.7 L (31.0-37.0) g/dL RDW Std Deviation 50.6 (28.0-62.0) fl RDW Coeff of Yesika 16 H (11.0-15.0) % Plt Count 717 H (150-400) K/uL MPV 7.70 (7.40-12.00) fL Neut % (Auto) 69.6 (48.0-80.0) % Lymph % (Auto) 18.2 (16.0-40.0) % [place] % (Auto) 8.2 (0.0-15.0) % Eos % (Auto) 3.5 (0.0-7.0) % Baso % (Auto) 0.5 (0.0-1.5) % Neut # (Auto) 5.6 (1.4-5.7) K/uL Lymph # (Auto) 1.5 (0.6-2.4) K/uL [place] # (Auto) 0.7 (0.0-0.8) K/uL Eos # (Auto) 0.3 (0.0-0.7) K/uL Baso # (Auto) 0.0 (0.0-0.1) K/uL Nucleated RBC % 0.0 /100WBC Nucleated RBCs # 0 K/uL ESR (0-19) mm/hr Lactate 0.9 (0.20-2.00) mmol/L Sodium 140 (136-148) mmol/L Potassium 4.1 (3.5-5.1) mmol/L Chloride 105 (98-107) mmol/L Carbon Dioxide 25.4 (21.0-32.0) mmol/L BUN 15 (7.0-18.0) mg/dL Creatinine 1.1 (0.8-1.3) mg/dL Est Cr Clr Drug Dosing 71.89 mL/min Estimated GFR (MDRD) > 60.0 ml/min Glucose 112 H (74-106) mg/dL Calcium 8.3 L (8.5-10.1) mg/dL Total Bilirubin 0.2 (0.2-1.0) mg/dL AST 16 (15-37) IU/L ALT 28 (14-63) IU/L Alkaline Phosphatase 88 (46-116) U/L C-Reactive Protein (0.00-0.90) mg/dL Total Protein 7.8 (6.4-8.2) g/dL Albumin 2.5 L (3.4-5.0) g/dL Globulin 5.3 H (2.6-4.0) g/dL Albumin/Globulin Ratio 0.5 L (0.9-1.6) 09/06/19 09/06/19 Range/Units 16:30 16:30 WBC (4.0-11.0) K/uL RBC (4.50-5.90) M/uL Hgb (13.0-17.0) g/dL Hct (38.0-50.0) % MCV (80.0-98.0) fL MCH (27.0-32.0) pg MCHC (31.0-37.0) g/dL RDW Std Deviation (28.0-62.0) fl RDW Coeff of Yesika (11.0-15.0) % Plt Count (150-400) K/uL MPV (7.40-12.00) fL Neut % (Auto) (48.0-80.0) % Lymph % (Auto) (16.0-40.0) % [place] % (Auto) (0.0-15.0) % Eos % (Auto) (0.0-7.0) % Baso % (Auto) (0.0-1.5) % Neut # (Auto) (1.4-5.7) K/uL Lymph # (Auto) (0.6-2.4) K/uL [place] # (Auto) (0.0-0.8) K/uL Eos # (Auto) (0.0-0.7) K/uL Baso # (Auto) (0.0-0.1) K/uL Nucleated RBC % /100WBC Nucleated RBCs # K/uL ESR > 140 H (0-19) mm/hr Lactate (0.20-2.00) mmol/L Sodium (136-148) mmol/L Potassium (3.5-5.1) mmol/L Chloride (98-107) mmol/L Carbon Dioxide (21.0-32.0) mmol/L BUN (7.0-18.0) mg/dL Creatinine (0.8-1.3) mg/dL Est Cr Clr Drug Dosing mL/min Estimated GFR (MDRD) ml/min Glucose (74-106) mg/dL Calcium (8.5-10.1) mg/dL Total Bilirubin (0.2-1.0) mg/dL AST (15-37) IU/L ALT (14-63) IU/L Alkaline Phosphatase (46-116) U/L C-Reactive Protein 12.30 H (0.00-0.90) mg/dL Total Protein (6.4-8.2) g/dL Albumin (3.4-5.0) g/dL Globulin (2.6-4.0) g/dL Albumin/Globulin Ratio (0.9-1.6) Result Diagrams: 09/06/19 16:20 09/06/19 16:20 Sepsis Event Note - Evaluation Sepsis Screening Result: No Definite Risk - Focused Exam Vital Signs: Vital Signs Temp Pulse Resp BP Pulse Ox 09/06/19 18:10 37.7 C 82 17 120/72 95 09/06/19 17:33 36.5 C 74 16 105/62 96 09/06/19 15:55 36.5 C 78 18 127/57 L 96 Date Exam was Performed: 09/06/19 Time Exam was Performed: 18:12 - Problem List (1) Postoperative wound infection SNOMED Code(s): 77282873, 514588488 ICD Code: T81.49XA - INFECTION FOLLOWING A PROCEDURE, OTHER SURGICAL SITE, INIT Status: Acute Current Visit: Yes Problem List Initiated/Reviewed/Updated: Yes Orders Last 24hrs: Active Orders 24 hr Category Date Time Status Admission Status [Patient Status] [ADT] Stat ADT 09/06/19 17:16 Active CULTURE BLOOD [BC] Stat Lab 09/06/19 16:20 Received CULTURE BLOOD [BC] Stat Lab 09/06/19 16:30 Received Blood Culture x2 Reflex Set [OM.PC] Stat Oth 09/06/19 15:55 Ordered Assessment/Plan Comment:: A: 63 yo male s/p i and d right knee infection, wound dehiscence P: to OR tomorrow, I and D, wound vac chin, continue SCD, continue vancomycin - Mortality Measure Prognosis:: Good
[2019-09-06] MEDS: Acetaminophen/oxyCODONE 325-5 MG Tab PO PRN (20:33)
[2019-09-06] MEDS: Carvedilol 3.125 MG Tab PO SCH (20:33)
[2019-09-06] MEDS ORDERED: Lactated Ringers 1,000 ML IV SCH (22:00)
[2019-09-07] MEDS ORDERED: Bupivacaine 0.5%/EPINEPHrine 1:200,000 10 ML SDV ONE ×2 (08:09→13:50)
[2019-09-07] MEDS ORDERED: Lidocaine 1% 20 ML MDV ONE (08:09)
[2019-09-07] MEDS ORDERED: Gentamicin 40 MG/ML 2 ML Vial ONE ×2 (08:22→12:55)
[2019-09-07] MEDS: Carvedilol 3.125 MG Tab PO SCH ×2 (08:40→17:28)
[2019-09-07] MEDS: amLODIPine 5 MG Tab PO SCH (08:40)
--- NOTE | 2019-09-07 08:48 | PCM.PREANE ---
Preanesthetic Assessment - Anesthesia/Transfusion/Family Hx Anesthesia History: Prior Anesthesia Without Reaction Family History of Anesthesia Reaction: No Transfusion History: No Prior Transfusion(s) Intubation History: Unknown - Review of Systems General: No Symptoms Pulmonary: No Symptoms Cardiovascular: No Symptoms Gastrointestinal: No Symptoms Neurological: No Symptoms Other: Reports: None - Physical Assessment NPO Status Date: 09/06/19 Vital Signs: Last Vital Signs Temp 98.6 F 09/07/19 07:50 Pulse 80 09/07/19 08:40 Resp 16 09/07/19 07:50 BP 133/69 09/07/19 08:40 Pulse Ox 94 L 09/07/19 07:50 Height: 5 ft 10 in Weight: 123.377 kg ASA Class: 2 Mental Status: Alert & Oriented x3 Airway Class: Mallampati = 2 ROM/Head Extension: Full Lungs: Normal Respiratory Effort Cardiovascular: Regular Rate - Lab Values: Laboratory Last Values WBC 7.97 K/uL (4.0-11.0) 09/06/19 16:20 RBC 3.10 M/uL (4.50-5.90) L 09/06/19 16:20 Hgb 8.2 g/dL (13.0-17.0) L 09/06/19 16:20 Hct 26.7 % (38.0-50.0) L 09/06/19 16:20 MCV 86.1 fL (80.0-98.0) 09/06/19 16:20 MCH 26.5 pg (27.0-32.0) L 09/06/19 16:20 MCHC 30.7 g/dL (31.0-37.0) L 09/06/19 16:20 RDW Std Deviation 50.6 fl (28.0-62.0) 09/06/19 16:20 RDW Coeff of Yesika 16 % (11.0-15.0) H 09/06/19 16:20 Plt Count 717 K/uL (150-400) H 09/06/19 16:20 MPV 7.70 fL (7.40-12.00) 09/06/19 16:20 Neut % (Auto) 69.6 % (48.0-80.0) 09/06/19 16:20 Lymph % (Auto) 18.2 % (16.0-40.0) 09/06/19 16:20 [place] % (Auto) 8.2 % (0.0-15.0) 09/06/19 16:20 Eos % (Auto) 3.5 % (0.0-7.0) 09/06/19 16:20 Baso % (Auto) 0.5 % (0.0-1.5) 09/06/19 16:20 Neut # (Auto) 5.6 K/uL (1.4-5.7) 09/06/19 16:20 Lymph # (Auto) 1.5 K/uL (0.6-2.4) 09/06/19 16:20 [place] # (Auto) 0.7 K/uL (0.0-0.8) 09/06/19 16:20 Eos # (Auto) 0.3 K/uL (0.0-0.7) 09/06/19 16:20 Baso # (Auto) 0.0 K/uL (0.0-0.1) 09/06/19 16:20 Nucleated RBC % 0.0 /100WBC 09/06/19 16:20 Nucleated RBCs # 0 K/uL 09/06/19 16:20 ESR > 140 mm/hr (0-19) H 09/06/19 16:30 Lactate 0.9 mmol/L (0.20-2.00) 09/06/19 16:20 Sodium 140 mmol/L (136-148) 09/06/19 16:20 Potassium 4.1 mmol/L (3.5-5.1) 09/06/19 16:20 Chloride 105 mmol/L (98-107) 09/06/19 16:20 Carbon Dioxide 25.4 mmol/L (21.0-32.0) 09/06/19 16:20 BUN 15 mg/dL (7.0-18.0) 09/06/19 16:20 Creatinine 1.1 mg/dL (0.8-1.3) 09/06/19 16:20 Est Cr Clr Drug Dosing 71.89 mL/min 09/06/19 16:20 Estimated GFR (MDRD) > 60.0 ml/min 09/06/19 16:20 Glucose 112 mg/dL (74-106) H 09/06/19 16:20 Calcium 8.3 mg/dL (8.5-10.1) L 09/06/19 16:20 Total Bilirubin 0.2 mg/dL (0.2-1.0) 09/06/19 16:20 AST 16 IU/L (15-37) 09/06/19 16:20 ALT 28 IU/L (14-63) 09/06/19 16:20 Alkaline Phosphatase 88 U/L (46-116) 09/06/19 16:20 C-Reactive Protein 12.30 mg/dL (0.00-0.90) H 09/06/19 16:30 Total Protein 7.8 g/dL (6.4-8.2) 09/06/19 16:20 Albumin 2.5 g/dL (3.4-5.0) L 09/06/19 16:20 Globulin 5.3 g/dL (2.6-4.0) H 09/06/19 16:20 Albumin/Globulin Ratio 0.5 (0.9-1.6) L 09/06/19 16:20 - Allergies Allergies/Adverse Reactions: Allergies Allergy/AdvReac Type Severity Reaction Status Date / Time No Known Allergies Allergy Verified 09/06/19 18:14 - Anesthesia Plan Pre-Op Medication Ordered: None - Acknowledgements Anesthesia Type Planned: Spinal Pt an Appropriate Candidate for the Planned Anesthesia: Yes Alternatives and Risks of Anesthesia Discussed w Pt/Guardian: Yes Pt/Guardian Understands and Agrees with Anesthesia Plan: Yes Additional Comments: PMH: MRSA, htn, 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, noncompliant PLAN: spinal PreAnesthesia Questionnaire HEENT History: Reports: Other (See Below) Other HEENT History: wears glasses Cardiovascular History: Reports: Hypertension Respiratory History: Reports: None Gastrointestinal History: Reports: Colon Polyp Genitourinary History: Reports: None Musculoskeletal History: Reports: Fracture, Osteoarthritis Other Musculoskeletal History: hx fx hand Neurological History: Reports: None Psychiatric History: Reports: None Endocrine/Metabolic History: Reports: Obesity/BMI 30+ Hematologic History: Reports: None Immunologic History: Reports: None Oncologic (Cancer) History: Reports: None Dermatologic History: Reports: None - Past Surgical History Head Surgeries/Procedures: Reports: None HEENT Surgical History: Reports: None Cardiovascular Surgical History: Reports: None Respiratory Surgical History: Reports: None GI Surgical History: Reports: Colonoscopy Male Surgical History: Reports: None Endocrine Surgical History: Reports: None Neurological Surgical History: Reports: None Musculoskeletal Surgical History: Reports: Knee Replacement Other Musculoskeletal Surgeries/Procedures:: hx left knee replacement 5 years ago in [place] under spinal anesthesia, right knee replacement in july 2019 Oncologic Surgical History: Reports: None Dermatological Surgical History: Reports: None - SUBSTANCE USE Smoking Status *Q: Light Tobacco Smoker Tobacco Use Within Last Twelve Months: Cigarettes Recreational Drug Use History: No - HOME MEDS Home Medications: Home Meds Carvedilol [Coreg] 3.125 mg PO BID 07/23/19 [History] Enalapril Maleate 10 mg PO DAILY 07/23/19 [History] amLODIPine Besylate [Amlodipine Besylate] 10 mg PO DAILY 07/23/19 [History] Acetaminophen/oxyCODONE [Percocet 325-5 MG] 1 - 2 tab PO Q6HR PRN #40 tablet [Rx] Pharmacy to Dose - Vancomycin 1 dose .XX ASDIRECTED each 09/03/19 [Rx] - CURRENT (IN HOUSE) MEDS Current Meds: Current Medications Amlodipine Besylate (Norvasc) 10 mg PO DAILY [facility] Last Admin: 09/07/19 08:40 Dose: 10 mg Carvedilol (Coreg) 3.125 mg PO BIDMEALS [facility] Last Admin: 09/07/19 08:40 Dose: 3.125 mg Lactated Ringer's (Ringers, Lactated) 1,000 mls @ 75 mls/hr IV ASDIRECTED [facility] Last Admin: 09/06/19 23:57 Dose: 75 mls/hr Oxycodone/Acetaminophen (Percocet 325-5 Mg) 1 - 2 tab PO Q6HR PRN PRN Reason: Pain Last Admin: 09/06/19 20:33 Dose: 2 tab Discontinued Medications Bupivacaine HCl/Epinephrine Bitart (Marcaine 0.5%/Epinephrine 1:200,000) Confirm Administered Dose 10 ml .ROUTE .STK-MED ONE Stop: 09/07/19 08:10 Gentamicin Sulfate (Gentamicin) Confirm Administered Dose 160 mg .ROUTE .STK- MED ONE Stop: 09/07/19 08:23 Lidocaine HCl (Xylocaine 1%) Confirm Administered Dose 20 ml .ROUTE .STK-MED ONE Stop: 09/07/19 08:10
[2019-09-07] MEDS ORDERED: Bupivacaine 0.5% 10 ML SDV ONE (09:24)
[2019-09-07] MEDS ORDERED: Midazolam 1 MG/ML 2 ML SDV ONE (11:23)
[2019-09-07] MEDS ORDERED: Propofol 200 MG/20 ML SDV ONE ×2 (11:23→13:16)
[2019-09-07] MEDS ORDERED: Ondansetron 4 MG/2 ML SDV IVPUSH PRN (14:19)
[2019-09-07] MEDS ORDERED: diphenhydrAMINE 25 MG Cap PO PRN (14:19)
[2019-09-07] MEDS ORDERED: Sodium Chloride 0.9% 10 ML Syringe FLUSH PRN (14:19)
[2019-09-07] MEDS ORDERED: Sodium Chloride 0.9% 2.5 ML Syringe FLUSH PRN (14:19)
[2019-09-07] MEDS ORDERED: Docusate Sodium 100 MG Cap PO PRN (14:19)
[2019-09-07] MEDS ORDERED: Aluminum Hydroxide/Magnesium Hydroxide/Simethicone Susp 30 ML Cup PO PRN (14:19)
[2019-09-07] MEDS ORDERED: Bisacodyl 10 MG Supp RECTAL PRN (14:19)
--- NOTE | 2019-09-07 14:47 | PCM.POSTAN ---
POST ANESTHESIA ASSESSMENT - MENTAL STATUS Mental Status: Alert - VITAL SIGNS Vital Signs: Last Vital Signs Temp 36.7 C 09/07/19 14:13 Pulse 64 09/07/19 14:38 Resp 18 09/07/19 14:38 BP 92/65 09/07/19 14:38 Pulse Ox 100 09/07/19 14:38 - RESPIRATORY Respiratory Status: Respiratory Rate WNL - CARDIOVASCULAR CV Status: Pulse Rate WNL - GASTROINTESTINAL GI Status: No Symptoms - POST OP HYDRATION Hydration Status: Adequate & Stable
[2019-09-07] MEDS: Acetaminophen/oxyCODONE 325-5 MG Tab PO PRN ×2 (15:50→22:03)
--- NOTE | 2019-09-07 15:51 | PCM.CONS ---
H&P History of Present Illness - General Date of Service: 09/07/19 Admit Problem/Dx: Admission Diagnosis/Problem Admission Diagnosis/Problem Infection of knee Source of Information: Patient, Old Records History Limitations: Reports: No Limitations - History of Present Illness Initial Comments - Free Text/Narative: This 63 year old male with pmh of infected L TKA and HTN was admitted due to wound dehisence and wound vac failure by Orthopedics. Hospitalist consulted for medical management of HTN. Recently returned from PACU. patient is alert and oriented, feeling well. Has no complaints. Was doing ok at home but then wound started leaking and wound vac failed. Denies chest pain or SOB. No other concerns. No constipation or black or bloody BMs. VS stable since arrival from PACU. Will monitor labwork in am. right knee Pain Score (Numeric/FACES): 3 - Related Data Allergies/Adverse Reactions: Allergies Allergy/AdvReac Type Severity Reaction Status Date / Time No Known Allergies Allergy Verified 09/06/19 18:14 Home Medications: Home Meds Enalapril Maleate 10 mg PO DAILY 07/23/19 [History] amLODIPine Besylate [Amlodipine Besylate] 10 mg PO DAILY 07/23/19 [History] carvediloL [Coreg] 3.125 mg PO BID 07/23/19 [History] Acetaminophen/oxyCODONE [Percocet 325-5 MG] 1 - 2 tab PO Q6HR PRN #40 tablet [Rx] Pharmacy to Dose - Vancomycin 1 dose .XX ASDIRECTED each 09/03/19 [Rx] Past Medical History HEENT History: Reports: Other (See Below) Other HEENT History: wears glasses Cardiovascular History: Reports: Hypertension Respiratory History: Reports: None Gastrointestinal History: Reports: Colon Polyp Genitourinary History: Reports: None Musculoskeletal History: Reports: Fracture, Osteoarthritis Other Musculoskeletal History: hx fx hand Neurological History: Reports: None Psychiatric History: Reports: None Endocrine/Metabolic History: Reports: Obesity/BMI 30+ Hematologic History: Reports: None Immunologic History: Reports: None Oncologic (Cancer) History: Reports: None Dermatologic History: Reports: None - Past Surgical History Head Surgeries/Procedures: Reports: None HEENT Surgical History: Reports: None Cardiovascular Surgical History: Reports: None Respiratory Surgical History: Reports: None GI Surgical History: Reports: Colonoscopy Male Surgical History: Reports: None Endocrine Surgical History: Reports: None Neurological Surgical History: Reports: None Musculoskeletal Surgical History: Reports: Knee Replacement Other Musculoskeletal Surgeries/Procedures:: hx left knee replacement 5 years ago in [place] under spinal anesthesia, right knee replacement in july 2019 Oncologic Surgical History: Reports: None Dermatological Surgical History: Reports: None Social & Family History - Family History Family Medical History: Noncontributory - Tobacco Use Smoking Status *Q: Light Tobacco Smoker Years of Tobacco use: 30 Packs/Tins Daily: 0.1 - Caffeine Use Caffeine Use: Reports: Coffee, Soda - Recreational Drug Use Recreational Drug Use: No H&P Review of Systems - Review of Systems: Review Of Systems: See Below General: Reports: No Symptoms. Denies: Fever, Chills, Malaise, Weakness HEENT: Reports: No Symptoms. Denies: Headaches, Sinus Congestion, Vertigo Pulmonary: Reports: No Symptoms. Denies: Shortness of Breath Cardiovascular: Reports: No Symptoms. Denies: Chest Pain Gastrointestinal: Reports: No Symptoms. Denies: Abdominal Pain, Black Stool, Bloody Stool, Nausea, Vomiting Genitourinary: Reports: No Symptoms. Denies: Dysuria, Frequency Musculoskeletal: Reports: Joint Pain (L knee pain) Skin: Reports: No Symptoms Neurological: Reports: No Symptoms Hematologic/Lymphatic: Reports: No Symptoms Immunologic: Reports: No Symptoms Exam - Exam Exam: See Below - Vital Signs Vital Signs: Last Vital Signs Temp 98.2 F 09/07/19 14:50 Pulse 67 09/07/19 14:50 Resp 16 09/07/19 14:50 BP 123/57 L 09/07/19 14:50 Pulse Ox 99 09/07/19 14:50 Weight: 123.377 kg - Exam General: Alert, Oriented, Cooperative HEENT: Conjunctiva Clear, Mucosa Moist & [place], Posterior Pharynx Clear Lungs: Clear to Auscultation, Normal Respiratory Effort Cardiovascular: Regular Rate, Regular Rhythm GI/Abdominal Exam: Normal Bowel Sounds, Soft, Non-Tender Extremities: Normal Inspection, Normal Range of Motion, Non-Tender, No Pedal Edema Skin: Wound (Wound vac and knee immobilizer to L knee) Neuro Extensive - Mental Status: Alert, Oriented x3 Psychiatric: Alert, Normal Affect, Normal Mood - Patient Data Lab Results Last 24 hrs: Laboratory Results - last 24 hr 09/06/19 09/06/19 09/06/19 Range/Units 16:20 16:20 16:20 WBC 7.97 (4.0-11.0) K/uL RBC 3.10 L (4.50-5.90) M/uL Hgb 8.2 L (13.0-17.0) g/dL Hct 26.7 L (38.0-50.0) % MCV 86.1 (80.0-98.0) fL MCH 26.5 L (27.0-32.0) pg MCHC 30.7 L (31.0-37.0) g/dL RDW Std Deviation 50.6 (28.0-62.0) fl RDW Coeff of Yesika 16 H (11.0-15.0) % Plt Count 717 H (150-400) K/uL MPV 7.70 (7.40-12.00) fL Neut % (Auto) 69.6 (48.0-80.0) % Lymph % (Auto) 18.2 (16.0-40.0) % [place] % (Auto) 8.2 (0.0-15.0) % Eos % (Auto) 3.5 (0.0-7.0) % Baso % (Auto) 0.5 (0.0-1.5) % Neut # (Auto) 5.6 (1.4-5.7) K/uL Lymph # (Auto) 1.5 (0.6-2.4) K/uL [place] # (Auto) 0.7 (0.0-0.8) K/uL Eos # (Auto) 0.3 (0.0-0.7) K/uL Baso # (Auto) 0.0 (0.0-0.1) K/uL Nucleated RBC % 0.0 /100WBC Nucleated RBCs # 0 K/uL ESR (0-19) mm/hr Lactate 0.9 (0.20-2.00) mmol/L Sodium 140 (136-148) mmol/L Potassium 4.1 (3.5-5.1) mmol/L Chloride 105 (98-107) mmol/L Carbon Dioxide 25.4 (21.0-32.0) mmol/L BUN 15 (7.0-18.0) mg/dL Creatinine 1.1 (0.8-1.3) mg/dL Est Cr Clr Drug Dosing 71.89 mL/min Estimated GFR (MDRD) > 60.0 ml/min Glucose 112 H (74-106) mg/dL Calcium 8.3 L (8.5-10.1) mg/dL Total Bilirubin 0.2 (0.2-1.0) mg/dL AST 16 (15-37) IU/L ALT 28 (14-63) IU/L Alkaline Phosphatase 88 (46-116) U/L C-Reactive Protein (0.00-0.90) mg/dL Total Protein 7.8 (6.4-8.2) g/dL Albumin 2.5 L (3.4-5.0) g/dL Globulin 5.3 H (2.6-4.0) g/dL Albumin/Globulin Ratio 0.5 L (0.9-1.6) 09/06/19 09/06/19 Range/Units 16:30 16:30 WBC (4.0-11.0) K/uL RBC (4.50-5.90) M/uL Hgb (13.0-17.0) g/dL Hct (38.0-50.0) % MCV (80.0-98.0) fL MCH (27.0-32.0) pg MCHC (31.0-37.0) g/dL RDW Std Deviation (28.0-62.0) fl RDW Coeff of Yesika (11.0-15.0) % Plt Count (150-400) K/uL MPV (7.40-12.00) fL Neut % (Auto) (48.0-80.0) % Lymph % (Auto) (16.0-40.0) % [place] % (Auto) (0.0-15.0) % Eos % (Auto) (0.0-7.0) % Baso % (Auto) (0.0-1.5) % Neut # (Auto) (1.4-5.7) K/uL Lymph # (Auto) (0.6-2.4) K/uL [place] # (Auto) (0.0-0.8) K/uL Eos # (Auto) (0.0-0.7) K/uL Baso # (Auto) (0.0-0.1) K/uL Nucleated RBC % /100WBC Nucleated RBCs # K/uL ESR > 140 H (0-19) mm/hr Lactate (0.20-2.00) mmol/L Sodium (136-148) mmol/L Potassium (3.5-5.1) mmol/L Chloride (98-107) mmol/L Carbon Dioxide (21.0-32.0) mmol/L BUN (7.0-18.0) mg/dL Creatinine (0.8-1.3) mg/dL Est Cr Clr Drug Dosing mL/min Estimated GFR (MDRD) ml/min Glucose (74-106) mg/dL Calcium (8.5-10.1) mg/dL Total Bilirubin (0.2-1.0) mg/dL AST (15-37) IU/L ALT (14-63) IU/L Alkaline Phosphatase (46-116) U/L C-Reactive Protein 12.30 H (0.00-0.90) mg/dL Total Protein (6.4-8.2) g/dL Albumin (3.4-5.0) g/dL Globulin (2.6-4.0) g/dL Albumin/Globulin Ratio (0.9-1.6) Result Diagrams: 09/06/19 16:20 09/06/19 16:20 Sepsis Event Note - Evaluation Sepsis Screening Result: No Definite Risk - Focused Exam Vital Signs: Vital Signs Temp Pulse Pulse Resp BP BP Pulse Ox 09/07/19 14:50 98.2 F 67 16 123/57 L 99 09/07/19 14:43 60 15 120/66 100 09/07/19 14:38 64 18 92/65 100 09/07/19 14:33 55 L 14 93/66 100 09/07/19 14:28 64 16 90/57 L 88 L 09/07/19 14:23 60 13 92/62 100 09/07/19 14:18 68 17 94/50 L 95 09/07/19 14:13 98.1 F 66 16 98/54 L 95 09/07/19 12:00 97.6 F 74 16 118/59 L 94 L 09/07/19 08:40 80 133/69 09/07/19 07:50 98.6 F 80 16 133/69 94 L 09/07/19 04:12 98.9 F 73 16 128/66 94 L Date Exam was Performed: 09/07/19 Time Exam was Performed: 15:45 Consult PN Assessment/Plan POD#: 0 Procedures: Procedures BLOOD CULTURE FOR BACTERIA (08/31/19) BLOOD TYPING SEROLOGIC ABO (07/28/19) BLOOD TYPING SEROLOGIC RH(D) (07/28/19) C-REACTIVE PROTEIN (08/31/19) COMPLETE CBC W/AUTO DIFF WBC (08/31/19) COMPREHEN METABOLIC PANEL (08/01/19) EMERGENCY DEPT VISIT (08/01/19) EXTREMITY STUDY (08/01/19) GLUCOSE BLOOD TEST (07/28/19) HEMATOCRIT (07/28/19) HEMOGLOBIN (07/28/19) METABOLIC PANEL TOTAL CA (08/31/19) PT EVAL LOW COMPLEX 20 MIN (07/28/19) RBC ANTIBODY SCREEN (07/28/19) RBC SED RATE AUTOMATED (08/31/19) ROUTINE VENIPUNCTURE (08/31/19) THERAPEUTIC ACTIVITIES (07/28/19) THERAPEUTIC EXERCISES (07/28/19) TOTAL KNEE ARTHROPLASTY (07/28/19) X-RAY EXAM KNEE 4 OR MORE (06/17/19) X-RAY EXAM OF KNEE 1 OR 2 (08/31/19) (1) MRSA (methicillin resistant staph aureus) culture positive SNOMED Code(s): 971418811 Code(s): Z22.322 - CARRIER OR SUSPECTED CARRIER OF METHICILLIN RESIS STAPH Current Visit: Yes (2) Postoperative wound infection SNOMED Code(s): 32363757, 312518458 Code(s): T81.49XA - INFECTION FOLLOWING A PROCEDURE, OTHER SURGICAL SITE, INIT Current Visit: Yes (3) HTN (hypertension) SNOMED Code(s): 68567162 Code(s): I10 - ESSENTIAL (PRIMARY) HYPERTENSION Current Visit: No Qualifiers: Hypertension type: essential hypertension Qualified Code(s): I10 - Essential (primary) hypertension (4) Infection of total knee replacement SNOMED Code(s): 510607022 Code(s): T84.59XA - INFECT/INFLM REACTION DUE TO OTH INTERNAL JOINT PROSTH, INIT; Z96.659 - PRESENCE OF UNSPECIFIED ARTIFICIAL KNEE JOINT Current Visit: No Qualifiers: Encounter type: initial encounter Qualified Code(s): T84.59XA - Infection and inflammatory reaction due to other internal joint prosthesis, initial encounter; Z96.659 - Presence of unspecified artificial knee joint Problem List Initiated/Reviewed/Updated: Yes Plan: This 63 year old male admitted with infected L TKA, Orthopedics consulted Hospitalist service for medical management of HTN. 1. L TKA infection: - Per Orthopedics - MRSA grew out previously, treating with Vancomycin 2. HTN: - Stable, - Continue Coreg, Enalapril and Norvasc in am - Monitor BMP daily VTE prophylaxis: Would recommend when deemed appropriate by Orthopedics
--- NOTE | 2019-09-07 16:17 | PCM.OPNOTE ---
- General Post-Op/Procedure Note Date of Surgery/Procedure: 09/07/19 Operative Procedure(s): Irrigation debridement status post wound dehiscence after irrigation debridement and wound VAC placement of infected total right knee arthroplasty, application of wound VAC, 2 incisions Pre Op Diagnosis: left knee s/p wound dehisence after I and D Post-Op Diagnosis: Same Anesthesia Technique: Combo Spinal/Epidural, Moderate Sedation Primary Surgeon: Javy Lieberman [employer] Writer: Danitza Balbuena EBL in mLs: 200 Complications: None Condition: Stable Free Text/Narrative:: Intake & Output 09/07/19 09/07/19 09/07/19 06:59 14:59 22:59 Intake Total 898 1400 Output Total 700 Balance 198 1400
[2019-09-08] MEDS: Acetaminophen/oxyCODONE 325-5 MG Tab PO PRN ×4 (04:25→23:33)
[2019-09-08 05:48] LABS: BLOOD UREA NITROGEN,BUN 10 mg/dL (7.0-18.0); CHLORIDE,CL 103 mmol/L (98-107); GLUCOSE RANDOM 114 mg/dL (74-106); POTASSIUM,K 4.2 mmol/L (3.5-5.1); SODIUM,NA 138 mmol/L (136-148)
--- NOTE | 2019-09-08 07:09 | PCM48HPAN ---
Post Anesthesia Note - EVALUATION WITHIN 48HRS OF ANESTHETIC Vital Signs in Normal Range: Yes Patient Participated in Evaluation: Yes Respiratory Function Stable: Yes Airway Patent: Yes Cardiovascular Function Stable: Yes Hydration Status Stable: Yes Pain Control Satisfactory: Yes Nausea and Vomiting Control Satisfactory: Yes Mental Status Recovered: Yes Vital Signs: Last Vital Signs Temp 37.3 C 09/08/19 03:53 Pulse 80 09/08/19 03:53 Resp 17 09/08/19 03:53 BP 136/74 09/08/19 03:53 Pulse Ox 96 09/08/19 03:53
--- NOTE | 2019-09-08 07:51 | PCM.CONSN ---
- General Info Date of Service: 09/08/19 Admission Dx/Problem (Free Text): Admission Diagnosis/Problem Admission Diagnosis/Problem Infection of knee Subjective Update: Doing well this morning, reports rough night due to knee pain. This morning it is tolerable. No chest pain or SOB. Denies lightheadedness or dizziness no dyspnea on exertion no fatigue Functional Status: Reports: Tolerating Diet, Ambulating, Urinating - Review of Systems General: Reports: No Symptoms HEENT: Reports: No Symptoms. Denies: Headaches, Visual Changes Pulmonary: Reports: No Symptoms. Denies: Shortness of Breath Cardiovascular: Reports: No Symptoms. Denies: Chest Pain Gastrointestinal: Reports: No Symptoms. Denies: Abdominal Pain, Nausea, Vomiting Genitourinary: Reports: No Symptoms. Denies: Dysuria, Frequency Musculoskeletal: Reports: Joint Pain Skin: Reports: No Symptoms Neurological: Reports: No Symptoms Psychiatric: Reports: No Symptoms - Patient Data Vitals - Most Recent: Last Vital Signs Temp 99.2 F 09/08/19 03:53 Pulse 80 09/08/19 03:53 Resp 17 09/08/19 03:53 BP 136/74 09/08/19 03:53 Pulse Ox 96 09/08/19 03:53 Weight - Most Recent: 123.377 kg I&O - Last 24 Hours: Intake & Output 09/07/19 09/08/19 09/08/19 22:59 06:59 14:59 Intake Total 300 1210 Output Total 1850 1200 Balance -1550 10 Lab Results Last 24 Hours: Laboratory Results - last 24 hr 09/08/19 09/08/19 Range/Units 05:10 05:10 Hgb 7.7 L (13.0-17.0) g/dL Hct 24.9 L (38.0-50.0) % Sodium 138 (136-148) mmol/L Potassium 4.2 (3.5-5.1) mmol/L Chloride 103 (98-107) mmol/L Carbon Dioxide 28.0 (21.0-32.0) mmol/L BUN 10 (7.0-18.0) mg/dL Creatinine 1.0 (0.8-1.3) mg/dL Est Cr Clr Drug Dosing 79.08 mL/min Estimated GFR (MDRD) > 60.0 ml/min Glucose 114 H (74-106) mg/dL Calcium 7.7 L (8.5-10.1) mg/dL Hernán Results Last 24 Hours: Microbiology 09/06/19 16:30 Aerobic Blood Culture - Preliminary Blood - Venous - Lab Draw NO GROWTH AFTER 1 DAY Anaerobic Blood Culture - Preliminary NO GROWTH AFTER 1 DAY 09/06/19 16:20 Aerobic Blood Culture - Preliminary Blood - Venous NO GROWTH AFTER 1 DAY Anaerobic Blood Culture - Preliminary NO GROWTH AFTER 1 DAY Med Orders - Current: Current Medications Al Hydroxide/Mg Hydroxide (Mag-Al Plus) 30 ml PO Q4H PRN PRN Reason: Indigestion Amlodipine Besylate (Norvasc) 10 mg PO DAILY [facility] Last Admin: 09/07/19 08:40 Dose: 10 mg Aspirin (Aspirin) 325 mg PO DAILY [facility] Bisacodyl (Dulcolax) 10 mg RECTAL DAILY PRN PRN Reason: Constipation Carvedilol (Coreg) 3.125 mg PO BIDMEALS [facility] Last Admin: 09/07/19 17:28 Dose: 3.125 mg Diphenhydramine HCl (Benadryl) 25 - 50 mg PO Q6H PRN PRN Reason: Itching Docusate Sodium (Colace) 100 mg PO BID PRN PRN Reason: Constipation Enalapril Maleate (Vasotec) 10 mg PO DAILY [facility] Lactated Ringer's (Ringers, Lactated) 1,000 mls @ 75 mls/hr IV ASDIRECTED [facility] Last Admin: 09/06/19 23:57 Dose: 75 mls/hr Vancomycin HCl 1.5 gm/ Premix 300 mls @ 200 mls/hr IV Q12H [facility] Last Admin: 09/08/19 04:19 Dose: 200 mls/hr Ondansetron HCl (Zofran) 4 mg IVPUSH Q6H PRN PRN Reason: Nausea/Vomiting Oxycodone/Acetaminophen (Percocet 325-5 Mg) 1 - 2 tab PO Q6HR PRN PRN Reason: Pain Last Admin: 09/08/19 04:25 Dose: 2 tab Polyethylene Glycol (Miralax) 17 gm PO DAILY [facility] Sodium Chloride (Saline Flush) 10 ml FLUSH ASDIRECTED PRN PRN Reason: Keep Vein Open Sodium Chloride (Saline Flush) 2.5 ml FLUSH ASDIRECTED PRN PRN Reason: Keep Vein Open Vancomycin HCl (Pharmacy To Dose - Vancomycin) 1 dose .XX ASDIRECTED [facility]I Discontinued Medications Bupivacaine HCl (Sensorcaine-Mpf 0.5%) Confirm Administered Dose 10 ml .ROUTE .STK-MED ONE Stop: 09/07/19 09:25 Bupivacaine HCl/Epinephrine Bitart (Marcaine 0.5%/Epinephrine 1:200,000) Confirm Administered Dose 10 ml .ROUTE .STK-MED ONE Stop: 09/07/19 08:10 Bupivacaine HCl/Epinephrine Bitart (Marcaine 0.5%/Epinephrine 1:200,000) Confirm Administered Dose 10 ml .ROUTE .STK-MED ONE Stop: 09/07/19 13:51 Gentamicin Sulfate (Gentamicin) Confirm Administered Dose 160 mg .ROUTE .STK- MED ONE Stop: 09/07/19 08:23 Gentamicin Sulfate (Gentamicin) Confirm Administered Dose 80 mg .ROUTE .STK-MED ONE Stop: 09/07/19 12:56 Lidocaine HCl (Xylocaine 1%) Confirm Administered Dose 20 ml .ROUTE .STK-MED ONE Stop: 09/07/19 08:10 Midazolam HCl (Versed 1 Mg/Ml) Confirm Administered Dose 4 mg .ROUTE .STK-MED ONE Stop: 09/07/19 11:24 Propofol (Diprivan 20 Ml) Confirm Administered Dose 400 mg .ROUTE .STK-MED ONE Stop: 09/07/19 11:24 Propofol (Diprivan 20 Ml) Confirm Administered Dose 400 mg .ROUTE .STK-MED ONE Stop: 09/07/19 13:17 - Exam Quality Assessment: No: Supplemental Oxygen General: Alert, Oriented, Cooperative Lungs: Clear to Auscultation, Normal Respiratory Effort Cardiovascular: Regular Rate, Regular Rhythm GI/Abdominal Exam: Normal Bowel Sounds, Soft, Non-Tender Extremities: Non-Tender, No Pedal Edema Wound/Incisions: Dressing Dry and Intact (wound vac in place to R knee) Neurological: No New Focal Deficit Psy/Mental Status: Alert, Normal Affect, Normal Mood Sepsis Event Note - Evaluation Sepsis Screening Result: No Definite Risk - Focused Exam Vital Signs: Vital Signs Temp Pulse Resp BP Pulse Ox 09/08/19 03:53 99.2 F 80 17 136/74 96 09/07/19 23:03 99.1 F 79 15 127/67 93 L Date Exam was Performed: 09/08/19 Time Exam was Performed: 10:43 Consult PN Assessment/Plan POD#: 1 Procedures: Procedures BLOOD CULTURE FOR BACTERIA (08/31/19) BLOOD TYPING SEROLOGIC ABO (07/28/19) BLOOD TYPING SEROLOGIC RH(D) (07/28/19) C-REACTIVE PROTEIN (08/31/19) COMPLETE CBC W/AUTO DIFF WBC (08/31/19) COMPREHEN METABOLIC PANEL (08/01/19) EMERGENCY DEPT VISIT (08/01/19) EXTREMITY STUDY (08/01/19) GLUCOSE BLOOD TEST (07/28/19) HEMATOCRIT (07/28/19) HEMOGLOBIN (07/28/19) METABOLIC PANEL TOTAL CA (08/31/19) PT EVAL LOW COMPLEX 20 MIN (07/28/19) RBC ANTIBODY SCREEN (07/28/19) RBC SED RATE AUTOMATED (08/31/19) ROUTINE VENIPUNCTURE (08/31/19) THERAPEUTIC ACTIVITIES (07/28/19) THERAPEUTIC EXERCISES (07/28/19) TOTAL KNEE ARTHROPLASTY (07/28/19) X-RAY EXAM KNEE 4 OR MORE (06/17/19) X-RAY EXAM OF KNEE 1 OR 2 (08/31/19) (1) MRSA (methicillin resistant staph aureus) culture positive SNOMED Code(s): 993720864 Code(s): Z22.322 - CARRIER OR SUSPECTED CARRIER OF METHICILLIN RESIS STAPH Current Visit: Yes (2) Postoperative wound infection SNOMED Code(s): 99642104, 987561366 Code(s): T81.49XA - INFECTION FOLLOWING A PROCEDURE, OTHER SURGICAL SITE, INIT Current Visit: Yes (3) HTN (hypertension) SNOMED Code(s): 95901006 Code(s): I10 - ESSENTIAL (PRIMARY) HYPERTENSION Current Visit: No Qualifiers: Hypertension type: essential hypertension Qualified Code(s): I10 - Essential (primary) hypertension (4) Infection of total knee replacement SNOMED Code(s): 631294885 Code(s): T84.59XA - INFECT/INFLM REACTION DUE TO OTH INTERNAL JOINT PROSTH, INIT; Z96.659 - PRESENCE OF UNSPECIFIED ARTIFICIAL KNEE JOINT Current Visit: No Qualifiers: Encounter type: initial encounter Qualified Code(s): T84.59XA - Infection and inflammatory reaction due to other internal joint prosthesis, initial encounter; Z96.659 - Presence of unspecified artificial knee joint Problem List Initiated/Reviewed/Updated: No My Orders Last 24 Hours: My Active Orders 09/08/19 09:00 Enalapril [Vasotec] 10 mg PO DAILY 09/09/19 05:11 BMP [BASIC METABOLIC PANEL,BMP] [CHEM] AM 09/10/19 05:11 BMP [BASIC METABOLIC PANEL,BMP] [CHEM] AM Plan: This 63 year old male admitted with infected R TKA, Orthopedics consulted Hospitalist service for medical management of HTN. 1. R TKA infection: - Per Orthopedics - MRSA grew out previously, treating with Vancomycin 2. HTN: - Stable, - Continue Coreg, Enalapril and Norvasc in am - Monitor BMP daily 3. Anemia: - Hgb 7.7 today, asymptomatic. May be dilutional slightly. - Monitor. VTE prophylaxis: Would recommend when deemed appropriate by Orthopedics
[2019-09-08] MEDS: Carvedilol 3.125 MG Tab PO SCH ×2 (10:51→17:51)
[2019-09-08] MEDS: Polyethylene Glycol 3350 Powder 17 GM Packet PO SCH (10:52)
[2019-09-08] MEDS: amLODIPine 5 MG Tab PO SCH (10:52)
[2019-09-08] MEDS: Aspirin 325 MG Tab PO SCH (10:52)
--- NOTE | 2019-09-08 15:16 | PCM.PN ---
- General Info Date of Service: 09/08/19 Admission Dx/Problem (Free Text): Admission Diagnosis/Problem Admission Diagnosis/Problem Infection of knee Subjective Update: Doing well this morning, reports rough night due to knee pain. This morning it is tolerable. No chest pain or SOB. Denies lightheadedness or dizziness no dyspnea on exertion no fatigue Functional Status: Reports: Pain Controlled, Tolerating Diet, Ambulating, Urinating - Review of Systems General: Reports: No Symptoms HEENT: Reports: No Symptoms Pulmonary: Reports: No Symptoms Cardiovascular: Reports: No Symptoms Gastrointestinal: Reports: No Symptoms Genitourinary: Reports: No Symptoms Musculoskeletal: Reports: Joint Pain, Joint Swelling Skin: Reports: No Symptoms Neurological: Reports: No Symptoms Psychiatric: Reports: No Symptoms - Patient Data Vitals - Most Recent: Last Vital Signs Temp 36.7 C 09/08/19 12:00 Pulse 75 09/08/19 12:00 Resp 18 09/08/19 12:00 BP 118/58 L 09/08/19 12:00 Pulse Ox 94 L 09/08/19 12:00 Weight - Most Recent: 123.377 kg I&O - Last 24 Hours: Intake & Output 09/08/19 09/08/19 09/08/19 06:59 14:59 22:59 Intake Total 1210 Output Total 1200 Balance 10 Lab Results Last 24 Hours: Laboratory Results - last 24 hr 09/08/19 09/08/19 Range/Units 05:10 05:10 Hgb 7.7 L (13.0-17.0) g/dL Hct 24.9 L (38.0-50.0) % Sodium 138 (136-148) mmol/L Potassium 4.2 (3.5-5.1) mmol/L Chloride 103 (98-107) mmol/L Carbon Dioxide 28.0 (21.0-32.0) mmol/L BUN 10 (7.0-18.0) mg/dL Creatinine 1.0 (0.8-1.3) mg/dL Est Cr Clr Drug Dosing 79.08 mL/min Estimated GFR (MDRD) > 60.0 ml/min Glucose 114 H (74-106) mg/dL Calcium 7.7 L (8.5-10.1) mg/dL Hernán Results Last 24 Hours: Microbiology 09/06/19 16:30 Aerobic Blood Culture - Preliminary Blood - Venous - Lab Draw NO GROWTH AFTER 1 DAY Anaerobic Blood Culture - Preliminary NO GROWTH AFTER 1 DAY 09/06/19 16:20 Aerobic Blood Culture - Preliminary Blood - Venous NO GROWTH AFTER 1 DAY Anaerobic Blood Culture - Preliminary NO GROWTH AFTER 1 DAY Med Orders - Current: Current Medications Al Hydroxide/Mg Hydroxide (Mag-Al Plus) 30 ml PO Q4H PRN PRN Reason: Indigestion Amlodipine Besylate (Norvasc) 10 mg PO DAILY [facility] Last Admin: 09/08/19 10:52 Dose: 10 mg Aspirin (Aspirin) 325 mg PO DAILY [facility] Last Admin: 09/08/19 10:52 Dose: 325 mg Bisacodyl (Dulcolax) 10 mg RECTAL DAILY PRN PRN Reason: Constipation Carvedilol (Coreg) 3.125 mg PO BIDMEALS [facility] Last Admin: 09/08/19 10:51 Dose: 3.125 mg Diphenhydramine HCl (Benadryl) 25 - 50 mg PO Q6H PRN PRN Reason: Itching Docusate Sodium (Colace) 100 mg PO BID PRN PRN Reason: Constipation Enalapril Maleate (Vasotec) 10 mg PO DAILY [facility] Last Admin: 09/08/19 10:52 Dose: 10 mg Lactated Ringer's (Ringers, Lactated) 1,000 mls @ 75 mls/hr IV ASDIRECTED [facility] Last Admin: 09/06/19 23:57 Dose: 75 mls/hr Vancomycin HCl 1.5 gm/ Premix 300 mls @ 200 mls/hr IV Q12H [facility] Last Admin: 09/08/19 04:19 Dose: 200 mls/hr Ondansetron HCl (Zofran) 4 mg IVPUSH Q6H PRN PRN Reason: Nausea/Vomiting Oxycodone/Acetaminophen (Percocet 325-5 Mg) 1 - 2 tab PO Q6HR PRN PRN Reason: Pain Last Admin: 09/08/19 10:30 Dose: 2 tab Polyethylene Glycol (Miralax) 17 gm PO DAILY [facility] Last Admin: 09/08/19 10:52 Dose: 17 gm Sodium Chloride (Saline Flush) 10 ml FLUSH ASDIRECTED PRN PRN Reason: Keep Vein Open Sodium Chloride (Saline Flush) 2.5 ml FLUSH ASDIRECTED PRN PRN Reason: Keep Vein Open Vancomycin HCl (Pharmacy To Dose - Vancomycin) 1 dose .XX ASDIRECTED [facility]I Discontinued Medications Bupivacaine HCl (Sensorcaine-Mpf 0.5%) Confirm Administered Dose 10 ml .ROUTE .STK-MED ONE Stop: 09/07/19 09:25 Bupivacaine HCl/Epinephrine Bitart (Marcaine 0.5%/Epinephrine 1:200,000) Confirm Administered Dose 10 ml .ROUTE .STK-MED ONE Stop: 09/07/19 08:10 Bupivacaine HCl/Epinephrine Bitart (Marcaine 0.5%/Epinephrine 1:200,000) Confirm Administered Dose 10 ml .ROUTE .STK-MED ONE Stop: 09/07/19 13:51 Gentamicin Sulfate (Gentamicin) Confirm Administered Dose 160 mg .ROUTE .STK- MED ONE Stop: 09/07/19 08:23 Gentamicin Sulfate (Gentamicin) Confirm Administered Dose 80 mg .ROUTE .STK-MED ONE Stop: 09/07/19 12:56 Lidocaine HCl (Xylocaine 1%) Confirm Administered Dose 20 ml .ROUTE .STK-MED ONE Stop: 09/07/19 08:10 Midazolam HCl (Versed 1 Mg/Ml) Confirm Administered Dose 4 mg .ROUTE .STK-MED ONE Stop: 09/07/19 11:24 Propofol (Diprivan 20 Ml) Confirm Administered Dose 400 mg .ROUTE .STK-MED ONE Stop: 09/07/19 11:24 Propofol (Diprivan 20 Ml) Confirm Administered Dose 400 mg .ROUTE .STK-MED ONE Stop: 09/07/19 13:17 - Exam Quality Assessment: DVT Prophylaxis General: Alert, Oriented, Cooperative, No Acute Distress HEENT: Pupils Equal, Pupils Reactive, EOMI, Mucous Membr. Moist/[place] Neck: Supple, Trachea Midline Lungs: Normal Respiratory Effort GI/Abdominal Exam: No Distention Extremities: Joint Swelling, Limited Range of Motion Peripheral Pulses: 2+: Dorsalis Pedis (L), Dorsalis Pedis (R) Skin: Warm, Dry, Intact Wound/Incisions: Healing Well, Drainage Neurological: No New Focal Deficit Psy/Mental Status: Alert, Normal Affect, Normal Mood Sepsis Event Note - Evaluation Sepsis Screening Result: No Definite Risk - Focused Exam Vital Signs: Vital Signs Temp Pulse Pulse Resp BP BP Pulse Ox 09/08/19 12:00 36.7 C 75 18 118/58 L 94 L 09/08/19 10:52 130/65 09/08/19 10:51 77 130/65 09/08/19 08:00 36.8 C 77 18 130/65 95 09/08/19 03:53 37.3 C 80 17 136/74 96 Date Exam was Performed: 09/08/19 Time Exam was Performed: 15:05 - Problem List & Annotations (1) Postoperative wound infection SNOMED Code(s): 64035238, 483992376 Code(s): T81.49XA - INFECTION FOLLOWING A PROCEDURE, OTHER SURGICAL SITE, INIT Status: Acute Current Visit: Yes - Problem List Review Problem List Initiated/Reviewed/Updated: Yes - Plan Plan:: A: 63 yo male s/p i and d right knee infection POD 1, wound dehiscence. Minimal drain output serosanguinous fluid. No erythema or purulence noted P: continue vancomycin and wound vac, dvt prophylaxis There was an area over the proximal incision with fluid that was not in continuity with the inferior wound vac. I removed a significant portion of the adhesive from the primary vac and applied a jaswinder. This would not hold suction as is typical with this device. I then applied an ioban to the entire vac which resolved the suction issue. Due to multiple difficulties with vac function, I am going to keep the patient in the hospital until next Friday. I will also consult with Dr. Riggs regarding treatment.
[2019-09-09 06:01] LABS: BLOOD UREA NITROGEN,BUN 11 mg/dL (7.0-18.0); CARBON DIOXIDE,CO2 28.6 mmol/L (21.0-32.0); CHLORIDE,CL 103 mmol/L (98-107); GLUCOSE RANDOM 114 mg/dL (74-106); POTASSIUM,K 4.1 mmol/L (3.5-5.1); SODIUM,NA 138 mmol/L (136-148)
--- NOTE | 2019-09-09 07:59 | PCM.CONSN ---
- General Info Date of Service: 09/09/19 Admission Dx/Problem (Free Text): Admission Diagnosis/Problem Admission Diagnosis/Problem Infection of knee Subjective Update: Doing well today, encouraged to be up from the bed for meals and to be using IS. No chest pain or SOB. No other concerns Functional Status: Reports: Pain Controlled - Review of Systems HEENT: Denies: No Symptoms, Headaches, Sore Throat, Visual Changes Pulmonary: Reports: No Symptoms. Denies: Shortness of Breath Cardiovascular: Reports: No Symptoms. Denies: Chest Pain Gastrointestinal: Reports: No Symptoms. Denies: Abdominal Pain, Nausea, Vomiting Genitourinary: Reports: No Symptoms Musculoskeletal: Reports: Joint Pain (R knee pain) Skin: Reports: No Symptoms Neurological: Reports: No Symptoms Psychiatric: Reports: No Symptoms - Patient Data Vitals - Most Recent: Last Vital Signs Temp 97.1 F 09/09/19 07:15 Pulse 79 09/09/19 07:15 Resp 17 09/09/19 07:15 BP 106/63 09/09/19 07:15 Pulse Ox 92 L 09/09/19 07:15 Weight - Most Recent: 123.377 kg I&O - Last 24 Hours: Intake & Output 09/08/19 09/09/19 09/09/19 22:59 06:59 14:59 Intake Total 760 600 Output Total 950 450 Balance -190 150 Lab Results Last 24 Hours: Laboratory Results - last 24 hr 09/09/19 09/09/19 09/09/19 Range/Units 02:33 05:28 05:28 Hgb 7.9 L (13.0-17.0) g/dL Hct 25.7 L (38.0-50.0) % Sodium 138 (136-148) mmol/L Potassium 4.1 (3.5-5.1) mmol/L Chloride 103 (98-107) mmol/L Carbon Dioxide 28.6 (21.0-32.0) mmol/L BUN 11 (7.0-18.0) mg/dL Creatinine 1.0 (0.8-1.3) mg/dL Est Cr Clr Drug Dosing 79.08 mL/min Estimated GFR (MDRD) > 60.0 ml/min Glucose 114 H (74-106) mg/dL Calcium 8.0 L (8.5-10.1) mg/dL Vancomycin Trough 16.2 H (5.0-10.0) ug/mL Hernán Results Last 24 Hours: Microbiology 09/06/19 16:30 Aerobic Blood Culture - Preliminary Blood - Venous - Lab Draw NO GROWTH AFTER 2 DAYS Anaerobic Blood Culture - Preliminary NO GROWTH AFTER 2 DAYS 09/06/19 16:20 Aerobic Blood Culture - Preliminary Blood - Venous NO GROWTH AFTER 2 DAYS Anaerobic Blood Culture - Preliminary NO GROWTH AFTER 2 DAYS Med Orders - Current: Current Medications Al Hydroxide/Mg Hydroxide (Mag-Al Plus) 30 ml PO Q4H PRN PRN Reason: Indigestion Amlodipine Besylate (Norvasc) 10 mg PO DAILY [facility] Last Admin: 09/08/19 10:52 Dose: 10 mg Aspirin (Aspirin) 325 mg PO DAILY [facility] Last Admin: 09/08/19 10:52 Dose: 325 mg Bisacodyl (Dulcolax) 10 mg RECTAL DAILY PRN PRN Reason: Constipation Carvedilol (Coreg) 3.125 mg PO BIDMEALS [facility] Last Admin: 09/08/19 17:51 Dose: 3.125 mg Diphenhydramine HCl (Benadryl) 25 - 50 mg PO Q6H PRN PRN Reason: Itching Docusate Sodium (Colace) 100 mg PO BID PRN PRN Reason: Constipation Enalapril Maleate (Vasotec) 10 mg PO DAILY [facility] Last Admin: 09/08/19 10:52 Dose: 10 mg Lactated Ringer's (Ringers, Lactated) 1,000 mls @ 75 mls/hr IV ASDIRECTED [facility] Last Admin: 09/06/19 23:57 Dose: 75 mls/hr Vancomycin HCl 1 gm/ Sodium (Chloride) 250 mls @ 166 mls/hr IV Q12H [facility] Last Admin: 09/09/19 06:37 Dose: 166 mls/hr Ondansetron HCl (Zofran) 4 mg IVPUSH Q6H PRN PRN Reason: Nausea/Vomiting Oxycodone/Acetaminophen (Percocet 325-5 Mg) 1 - 2 tab PO Q6HR PRN PRN Reason: Pain Last Admin: 09/08/19 23:33 Dose: 2 tab Polyethylene Glycol (Miralax) 17 gm PO DAILY [facility] Last Admin: 09/08/19 10:52 Dose: 17 gm Sodium Chloride (Saline Flush) 10 ml FLUSH ASDIRECTED PRN PRN Reason: Keep Vein Open Sodium Chloride (Saline Flush) 2.5 ml FLUSH ASDIRECTED PRN PRN Reason: Keep Vein Open Discontinued Medications Bupivacaine HCl (Sensorcaine-Mpf 0.5%) Confirm Administered Dose 10 ml .ROUTE .STK-MED ONE Stop: 09/07/19 09:25 Bupivacaine HCl/Epinephrine Bitart (Marcaine 0.5%/Epinephrine 1:200,000) Confirm Administered Dose 10 ml .ROUTE .STK-MED ONE Stop: 09/07/19 08:10 Bupivacaine HCl/Epinephrine Bitart (Marcaine 0.5%/Epinephrine 1:200,000) Confirm Administered Dose 10 ml .ROUTE .STK-MED ONE Stop: 09/07/19 13:51 Gentamicin Sulfate (Gentamicin) Confirm Administered Dose 160 mg .ROUTE .STK- MED ONE Stop: 09/07/19 08:23 Gentamicin Sulfate (Gentamicin) Confirm Administered Dose 80 mg .ROUTE .STK-MED ONE Stop: 09/07/19 12:56 Vancomycin HCl 1.5 gm/ Premix 300 mls @ 200 mls/hr IV Q12H [facility] Last Admin: 09/09/19 04:32 Dose: Not Given Lidocaine HCl (Xylocaine 1%) Confirm Administered Dose 20 ml .ROUTE .STK-MED ONE Stop: 09/07/19 08:10 Midazolam HCl (Versed 1 Mg/Ml) Confirm Administered Dose 4 mg .ROUTE .STK-MED ONE Stop: 09/07/19 11:24 Propofol (Diprivan 20 Ml) Confirm Administered Dose 400 mg .ROUTE .STK-MED ONE Stop: 09/07/19 11:24 Propofol (Diprivan 20 Ml) Confirm Administered Dose 400 mg .ROUTE .STK-MED ONE Stop: 09/07/19 13:17 Vancomycin HCl (Pharmacy To Dose - Vancomycin) 1 dose .XX ASDIRECTED [facility] - Exam General: Alert, Oriented, Cooperative Lungs: Clear to Auscultation, Normal Respiratory Effort Cardiovascular: Regular Rate, Regular Rhythm GI/Abdominal Exam: Normal Bowel Sounds, Soft, Non-Tender Extremities: Normal Inspection, Normal Range of Motion, Non-Tender, No Pedal Edema Neurological: No New Focal Deficit Psy/Mental Status: Alert, Normal Affect, Normal Mood Sepsis Event Note - Evaluation Sepsis Screening Result: No Definite Risk - Focused Exam Vital Signs: Vital Signs Temp Pulse Resp BP Pulse Ox 09/09/19 07:15 97.1 F 79 17 106/63 92 L 09/09/19 03:00 97.0 F 73 18 105/61 97 09/08/19 23:34 98.6 F 80 19 130/67 96 Date Exam was Performed: 09/09/19 Time Exam was Performed: 11:05 Consult PN Assessment/Plan POD#: 2 Procedures: Procedures BLOOD CULTURE FOR BACTERIA (08/31/19) BLOOD TYPING SEROLOGIC ABO (07/28/19) BLOOD TYPING SEROLOGIC RH(D) (07/28/19) C-REACTIVE PROTEIN (08/31/19) COMPLETE CBC W/AUTO DIFF WBC (08/31/19) COMPREHEN METABOLIC PANEL (08/01/19) EMERGENCY DEPT VISIT (08/01/19) EXTREMITY STUDY (08/01/19) GLUCOSE BLOOD TEST (07/28/19) HEMATOCRIT (07/28/19) HEMOGLOBIN (07/28/19) METABOLIC PANEL TOTAL CA (08/31/19) PT EVAL LOW COMPLEX 20 MIN (07/28/19) RBC ANTIBODY SCREEN (07/28/19) RBC SED RATE AUTOMATED (08/31/19) ROUTINE VENIPUNCTURE (08/31/19) THERAPEUTIC ACTIVITIES (07/28/19) THERAPEUTIC EXERCISES (07/28/19) TOTAL KNEE ARTHROPLASTY (07/28/19) X-RAY EXAM KNEE 4 OR MORE (06/17/19) X-RAY EXAM OF KNEE 1 OR 2 (08/31/19) (1) MRSA (methicillin resistant staph aureus) culture positive SNOMED Code(s): 741328231 Code(s): Z22.322 - CARRIER OR SUSPECTED CARRIER OF METHICILLIN RESIS STAPH Current Visit: Yes (2) Postoperative wound infection SNOMED Code(s): 81694666, 907087003 Code(s): T81.49XA - INFECTION FOLLOWING A PROCEDURE, OTHER SURGICAL SITE, INIT Current Visit: Yes (3) HTN (hypertension) SNOMED Code(s): 10116411 Code(s): I10 - ESSENTIAL (PRIMARY) HYPERTENSION Current Visit: No Qualifiers: Hypertension type: essential hypertension Qualified Code(s): I10 - Essential (primary) hypertension (4) Infection of total knee replacement SNOMED Code(s): 813579475 Code(s): T84.59XA - INFECT/INFLM REACTION DUE TO OTH INTERNAL JOINT PROSTH, INIT; Z96.659 - PRESENCE OF UNSPECIFIED ARTIFICIAL KNEE JOINT Current Visit: No Qualifiers: Encounter type: initial encounter Qualified Code(s): T84.59XA - Infection and inflammatory reaction due to other internal joint prosthesis, initial encounter; Z96.659 - Presence of unspecified artificial knee joint Problem List Initiated/Reviewed/Updated: Yes My Orders Last 24 Hours: My Active Orders 09/08/19 09:00 Enalapril [Vasotec] 10 mg PO DAILY 09/10/19 05:11 BMP [BASIC METABOLIC PANEL,BMP] [CHEM] AM Plan: This 63 year old male admitted with infected R TKA, Orthopedics consulted Hospitalist service for medical management of HTN. 1. R TKA infection: - Per Orthopedics - MRSA grew out previously, treating with Vancomycin 2. HTN: - Stable, - Continue Coreg, Enalapril and Norvasc in am - Monitor BMP daily 3. Anemia: - Hgb 7.9 today, asymptomatic. - Monitor. VTE prophylaxis: Would recommend when deemed appropriate by Orthopedics
[2019-09-09] MEDS: Acetaminophen/oxyCODONE 325-5 MG Tab PO PRN ×3 (08:11→21:07)
[2019-09-09] MEDS: Carvedilol 3.125 MG Tab PO SCH ×2 (08:13→16:43)
[2019-09-09] MEDS: amLODIPine 5 MG Tab PO SCH (08:13)
[2019-09-09] MEDS: Polyethylene Glycol 3350 Powder 17 GM Packet PO SCH (08:14)
[2019-09-09] MEDS: Aspirin 325 MG Tab PO SCH (08:14)
--- NOTE | 2019-09-09 13:37 | PCM.SN.2 ---
- Free Text/Narrative Note: The operative notes for service date September 05 needed addendum. Preoperative diagnosis is listed his left knee. That is incorrect. It should be right knee status post wound dehiscence after irrigation and debridement.
--- NOTE | 2019-09-09 13:56 | PCM.PN ---
- General Info Date of Service: 09/09/19 Admission Dx/Problem (Free Text): Admission Diagnosis/Problem Admission Diagnosis/Problem Infection of knee Subjective Update: Doing well today, encouraged to be up from the bed for meals and to be using IS. No chest pain or SOB. No other concerns Functional Status: Reports: Pain Controlled, Tolerating Diet, Ambulating, Urinating - Review of Systems General: Reports: No Symptoms HEENT: Reports: No Symptoms Pulmonary: Reports: No Symptoms Cardiovascular: Reports: No Symptoms Gastrointestinal: Reports: No Symptoms Genitourinary: Reports: No Symptoms Musculoskeletal: Reports: Joint Swelling Skin: Reports: No Symptoms Neurological: Reports: No Symptoms Psychiatric: Reports: No Symptoms - Patient Data Vitals - Most Recent: Last Vital Signs Temp 36.2 C 09/09/19 11:00 Pulse 75 09/09/19 11:00 Resp 18 09/09/19 11:00 BP 121/59 L 09/09/19 11:00 Pulse Ox 97 09/09/19 11:00 Weight - Most Recent: 123.377 kg I&O - Last 24 Hours: Intake & Output 09/08/19 09/09/19 09/09/19 22:59 06:59 14:59 Intake Total 760 600 Output Total 950 450 Balance -190 150 Lab Results Last 24 Hours: Laboratory Results - last 24 hr 09/09/19 09/09/19 09/09/19 Range/Units 02:33 05:28 05:28 Hgb 7.9 L (13.0-17.0) g/dL Hct 25.7 L (38.0-50.0) % Sodium 138 (136-148) mmol/L Potassium 4.1 (3.5-5.1) mmol/L Chloride 103 (98-107) mmol/L Carbon Dioxide 28.6 (21.0-32.0) mmol/L BUN 11 (7.0-18.0) mg/dL Creatinine 1.0 (0.8-1.3) mg/dL Est Cr Clr Drug Dosing 79.08 mL/min Estimated GFR (MDRD) > 60.0 ml/min Glucose 114 H (74-106) mg/dL Calcium 8.0 L (8.5-10.1) mg/dL Vancomycin Trough 16.2 H (5.0-10.0) ug/mL Hernán Results Last 24 Hours: Microbiology 09/06/19 16:30 Aerobic Blood Culture - Preliminary Blood - Venous - Lab Draw NO GROWTH AFTER 2 DAYS Anaerobic Blood Culture - Preliminary NO GROWTH AFTER 2 DAYS 09/06/19 16:20 Aerobic Blood Culture - Preliminary Blood - Venous NO GROWTH AFTER 2 DAYS Anaerobic Blood Culture - Preliminary NO GROWTH AFTER 2 DAYS Med Orders - Current: Current Medications Al Hydroxide/Mg Hydroxide (Mag-Al Plus) 30 ml PO Q4H PRN PRN Reason: Indigestion Amlodipine Besylate (Norvasc) 10 mg PO DAILY [facility] Last Admin: 09/09/19 08:13 Dose: 10 mg Aspirin (Aspirin) 325 mg PO DAILY [facility] Last Admin: 09/09/19 08:14 Dose: 325 mg Bisacodyl (Dulcolax) 10 mg RECTAL DAILY PRN PRN Reason: Constipation Carvedilol (Coreg) 3.125 mg PO BIDMEALS [facility] Last Admin: 09/09/19 08:13 Dose: 3.125 mg Diphenhydramine HCl (Benadryl) 25 - 50 mg PO Q6H PRN PRN Reason: Itching Docusate Sodium (Colace) 100 mg PO BID PRN PRN Reason: Constipation Enalapril Maleate (Vasotec) 10 mg PO DAILY [facility] Last Admin: 09/09/19 08:12 Dose: 10 mg Lactated Ringer's (Ringers, Lactated) 1,000 mls @ 75 mls/hr IV ASDIRECTED [facility] Last Admin: 09/06/19 23:57 Dose: 75 mls/hr Vancomycin HCl 1 gm/ Sodium (Chloride) 250 mls @ 166 mls/hr IV Q12H [facility] Last Admin: 09/09/19 06:37 Dose: 166 mls/hr Ondansetron HCl (Zofran) 4 mg IVPUSH Q6H PRN PRN Reason: Nausea/Vomiting Oxycodone/Acetaminophen (Percocet 325-5 Mg) 1 - 2 tab PO Q6HR PRN PRN Reason: Pain Last Admin: 09/09/19 08:11 Dose: 2 tab Polyethylene Glycol (Miralax) 17 gm PO DAILY [facility] Last Admin: 09/09/19 08:14 Dose: 17 gm Sodium Chloride (Saline Flush) 10 ml FLUSH ASDIRECTED PRN PRN Reason: Keep Vein Open Sodium Chloride (Saline Flush) 2.5 ml FLUSH ASDIRECTED PRN PRN Reason: Keep Vein Open Discontinued Medications Bupivacaine HCl (Sensorcaine-Mpf 0.5%) Confirm Administered Dose 10 ml .ROUTE .STK-MED ONE Stop: 09/07/19 09:25 Bupivacaine HCl/Epinephrine Bitart (Marcaine 0.5%/Epinephrine 1:200,000) Confirm Administered Dose 10 ml .ROUTE .STK-MED ONE Stop: 09/07/19 08:10 Bupivacaine HCl/Epinephrine Bitart (Marcaine 0.5%/Epinephrine 1:200,000) Confirm Administered Dose 10 ml .ROUTE .STK-MED ONE Stop: 09/07/19 13:51 Gentamicin Sulfate (Gentamicin) Confirm Administered Dose 160 mg .ROUTE .STK- MED ONE Stop: 09/07/19 08:23 Gentamicin Sulfate (Gentamicin) Confirm Administered Dose 80 mg .ROUTE .STK-MED ONE Stop: 09/07/19 12:56 Vancomycin HCl 1.5 gm/ Premix 300 mls @ 200 mls/hr IV Q12H [facility] Last Admin: 09/09/19 04:32 Dose: Not Given Lidocaine HCl (Xylocaine 1%) Confirm Administered Dose 20 ml .ROUTE .STK-MED ONE Stop: 09/07/19 08:10 Midazolam HCl (Versed 1 Mg/Ml) Confirm Administered Dose 4 mg .ROUTE .STK-MED ONE Stop: 09/07/19 11:24 Propofol (Diprivan 20 Ml) Confirm Administered Dose 400 mg .ROUTE .STK-MED ONE Stop: 09/07/19 11:24 Propofol (Diprivan 20 Ml) Confirm Administered Dose 400 mg .ROUTE .STK-MED ONE Stop: 09/07/19 13:17 Vancomycin HCl (Pharmacy To Dose - Vancomycin) 1 dose .XX ASDIRECTED [facility] - Exam Quality Assessment: DVT Prophylaxis General: Alert, Oriented, Cooperative, No Acute Distress HEENT: Pupils Equal, Pupils Reactive, EOMI, Mucous Membr. Moist/[place] Neck: Supple, Trachea Midline Lungs: Normal Respiratory Effort GI/Abdominal Exam: No Distention Extremities: Limited Range of Motion Peripheral Pulses: 2+: Dorsalis Pedis (L), Dorsalis Pedis (R) Skin: Warm, Dry, Intact Wound/Incisions: Healing Well, Dressing Dry and Intact, Drainage Neurological: No New Focal Deficit Psy/Mental Status: Alert, Normal Affect, Normal Mood Sepsis Event Note - Evaluation Sepsis Screening Result: No Definite Risk - Focused Exam Vital Signs: Vital Signs Temp Pulse Pulse Resp BP BP Pulse Ox 09/09/19 11:00 36.2 C 75 18 121/59 L 97 09/09/19 08:13 79 106/63 09/09/19 08:12 106/63 09/09/19 07:15 36.2 C 79 17 106/63 92 L 09/09/19 03:00 36.1 C 73 18 105/61 97 Date Exam was Performed: 09/09/19 Time Exam was Performed: 13:54 - Problem List & Annotations (1) Postoperative wound infection SNOMED Code(s): 13085190, 607792988 Code(s): T81.49XA - INFECTION FOLLOWING A PROCEDURE, OTHER SURGICAL SITE, INIT Status: Acute Current Visit: Yes - Problem List Review Problem List Initiated/Reviewed/Updated: Yes - My Orders Last 24 Hours: My Active Orders 09/08/19 15:16 Admission Status [Patient Status] [ADT] Routine 09/08/19 15:29 Wound Vac Management [OM.PC] Routine 09/09/19 06:00 Vancomycin [Vancocin] 1 gm Sodium Chloride 0.9% [Normal Saline (AdvBag)] 250 ml IV Q12H - Plan Plan:: A: 63 yo male s/p i and d right knee infection POD 2, wound dehiscence. Minimal drain output serosanguinous fluid. No erythema or purulence noted P: continue vancomycin and wound vac, dvt prophylaxis The proximal wound VAC was not working. It exceeded its 300 mL capacity. The distal wound VAC was continuing to work. We removed the dressing and applied a wound VAC to the entire incision and reapplied sponges inside the tibial cavity and area that was not able to close on the anterior distal incision. He tolerated this well. We will change the dressing again in 4 days.
--- NOTE | 2019-09-09 14:11 | PCM.SN.2 ---
- Free Text/Narrative Note: Helder is seen today at noon by myself, along with Dr. Lieberman. Sitting up in chair with knee immobilizer on RLE. SONIDO portable wound vac indicating leak per blinking red light. He additionally has the original wound vac (applied day of surgery 09/07/19 attached to canister), but there was obvious pooling of bloody drainage around the foam base. Wound vac dressing removed. Midline surgical incision well approximated with Prolene sutures in vertical mattress stitch. There is an area approximately 2cm that is purposely left open at the distal aspect of the incision, to allow drainage. There is a moderate amount of serosanguineous drainage from this site. Lateral proximal thigh has an incision packed with piece of the foam dressing. This was removed and a moderate amount of thick serosanguineous drainage that spilled out. No acute erythema along incision. Moderate amount of generalized inflammation. No calf pain, redness or swelling. PP2+ Sensation grossly intact to LE. A new woundvac dressing was applied, sucessfully, as suction was present and when attached to the canister/machine, received verification of adequate seal. Helder tolerated procedure well. Nursing informed to reinforced dressing if 'leak' is detected, but if pooled drainage is present and wound vac not working, dressing will need to be changed.
[2019-09-10] MEDS: Acetaminophen/oxyCODONE 325-5 MG Tab PO PRN ×3 (05:57→20:45)
[2019-09-10 06:46] LABS: BLOOD UREA NITROGEN,BUN 12 mg/dL (7.0-18.0); CARBON DIOXIDE,CO2 28.9 mmol/L (21.0-32.0); CHLORIDE,CL 103 mmol/L (98-107); GLUCOSE RANDOM 109 mg/dL (74-106); POTASSIUM,K 4.2 mmol/L (3.5-5.1); SODIUM,NA 137 mmol/L (136-148)
--- NOTE | 2019-09-10 08:08 | PCM.PN ---
- General Info Date of Service: 09/10/19 Admission Dx/Problem (Free Text): Admission Diagnosis/Problem Admission Diagnosis/Problem Infection of knee Subjective Update: Feeling ok today, Knee pain is tolerable. No Chest pain or SOB. No fevers. Functional Status: Reports: Pain Controlled, Tolerating Diet, Ambulating, Urinating - Review of Systems Pulmonary: Reports: No Symptoms. Denies: Shortness of Breath Cardiovascular: Reports: No Symptoms. Denies: Chest Pain Gastrointestinal: Reports: No Symptoms. Denies: Abdominal Pain, Nausea, Vomiting Genitourinary: Reports: No Symptoms Musculoskeletal: Reports: Joint Pain (knee R) Skin: Reports: No Symptoms Neurological: Reports: No Symptoms Psychiatric: Reports: No Symptoms - Patient Data Vitals - Most Recent: Last Vital Signs Temp 97.8 F 09/10/19 04:00 Pulse 70 09/10/19 04:00 Resp 16 09/10/19 04:00 BP 109/60 09/10/19 04:00 Pulse Ox 96 09/10/19 04:00 Weight - Most Recent: 123.377 kg I&O - Last 24 Hours: Intake & Output 09/09/19 09/10/19 09/10/19 22:59 06:59 14:59 Intake Total 600 500 Output Total 380 800 Balance 220 -300 Lab Results Last 24 Hours: Laboratory Results - last 24 hr 09/10/19 09/10/19 09/10/19 Range/Units 06:00 06:00 06:00 WBC 7.86 (4.0-11.0) K/uL RBC 2.98 L (4.50-5.90) M/uL Hgb 7.9 L (13.0-17.0) g/dL Hct 25.7 L (38.0-50.0) % MCV 86.2 (80.0-98.0) fL MCH 26.5 L (27.0-32.0) pg MCHC 30.7 L (31.0-37.0) g/dL RDW Std Deviation 52.1 (28.0-62.0) fl RDW Coeff of Yesika 16 H (11.0-15.0) % Plt Count 723 H (150-400) K/uL MPV 7.60 (7.40-12.00) fL Neut % (Auto) 60.8 (48.0-80.0) % Lymph % (Auto) 24.3 (16.0-40.0) % [place] % (Auto) 10.9 (0.0-15.0) % Eos % (Auto) 3.6 (0.0-7.0) % Baso % (Auto) 0.4 (0.0-1.5) % Neut # (Auto) 4.8 (1.4-5.7) K/uL Lymph # (Auto) 1.9 (0.6-2.4) K/uL [place] # (Auto) 0.9 H (0.0-0.8) K/uL Eos # (Auto) 0.3 (0.0-0.7) K/uL Baso # (Auto) 0.0 (0.0-0.1) K/uL Nucleated RBC % 0.0 /100WBC Nucleated RBCs # 0 K/uL Sodium 137 (136-148) mmol/L Potassium 4.2 (3.5-5.1) mmol/L Chloride 103 (98-107) mmol/L Carbon Dioxide 28.9 (21.0-32.0) mmol/L BUN 12 (7.0-18.0) mg/dL Creatinine 1.1 (0.8-1.3) mg/dL Est Cr Clr Drug Dosing 71.89 mL/min Estimated GFR (MDRD) > 60.0 ml/min Glucose 109 H (74-106) mg/dL Calcium 7.8 L (8.5-10.1) mg/dL Vancomycin Trough 12.6 H (5.0-10.0) ug/mL Hernán Results Last 24 Hours: Microbiology 09/06/19 16:30 Aerobic Blood Culture - Preliminary Blood - Venous - Lab Draw NO GROWTH AFTER 3 DAYS Anaerobic Blood Culture - Preliminary NO GROWTH AFTER 3 DAYS 09/06/19 16:20 Aerobic Blood Culture - Preliminary Blood - Venous NO GROWTH AFTER 3 DAYS Anaerobic Blood Culture - Preliminary NO GROWTH AFTER 3 DAYS Med Orders - Current: Current Medications Al Hydroxide/Mg Hydroxide (Mag-Al Plus) 30 ml PO Q4H PRN PRN Reason: Indigestion Amlodipine Besylate (Norvasc) 10 mg PO DAILY [facility] Last Admin: 09/09/19 08:13 Dose: 10 mg Aspirin (Aspirin) 325 mg PO DAILY [facility] Last Admin: 09/09/19 08:14 Dose: 325 mg Bisacodyl (Dulcolax) 10 mg RECTAL DAILY PRN PRN Reason: Constipation Carvedilol (Coreg) 3.125 mg PO BIDMEALS [facility] Last Admin: 09/09/19 16:43 Dose: 3.125 mg Diphenhydramine HCl (Benadryl) 25 - 50 mg PO Q6H PRN PRN Reason: Itching Docusate Sodium (Colace) 100 mg PO BID PRN PRN Reason: Constipation Enalapril Maleate (Vasotec) 10 mg PO DAILY [facility] Last Admin: 09/09/19 08:12 Dose: 10 mg Vancomycin HCl 1 gm/ Sodium (Chloride) 250 mls @ 166 mls/hr IV Q12H [facility] Last Admin: 09/10/19 06:58 Dose: 166 mls/hr Ondansetron HCl (Zofran) 4 mg IVPUSH Q6H PRN PRN Reason: Nausea/Vomiting Oxycodone/Acetaminophen (Percocet 325-5 Mg) 1 - 2 tab PO Q6HR PRN PRN Reason: Pain Last Admin: 09/10/19 05:57 Dose: 2 tab Polyethylene Glycol (Miralax) 17 gm PO DAILY [facility] Last Admin: 09/09/19 08:14 Dose: 17 gm Sodium Chloride (Saline Flush) 10 ml FLUSH ASDIRECTED PRN PRN Reason: Keep Vein Open Sodium Chloride (Saline Flush) 2.5 ml FLUSH ASDIRECTED PRN PRN Reason: Keep Vein Open Discontinued Medications Bupivacaine HCl (Sensorcaine-Mpf 0.5%) Confirm Administered Dose 10 ml .ROUTE .STK-MED ONE Stop: 09/07/19 09:25 Bupivacaine HCl/Epinephrine Bitart (Marcaine 0.5%/Epinephrine 1:200,000) Confirm Administered Dose 10 ml .ROUTE .STK-MED ONE Stop: 09/07/19 08:10 Bupivacaine HCl/Epinephrine Bitart (Marcaine 0.5%/Epinephrine 1:200,000) Confirm Administered Dose 10 ml .ROUTE .STK-MED ONE Stop: 09/07/19 13:51 Gentamicin Sulfate (Gentamicin) Confirm Administered Dose 160 mg .ROUTE .STK- MED ONE Stop: 09/07/19 08:23 Gentamicin Sulfate (Gentamicin) Confirm Administered Dose 80 mg .ROUTE .STK-MED ONE Stop: 09/07/19 12:56 Lactated Ringer's (Ringers, Lactated) 1,000 mls @ 75 mls/hr IV ASDIRECTED [facility] Last Admin: 09/06/19 23:57 Dose: 75 mls/hr Vancomycin HCl 1.5 gm/ Premix 300 mls @ 200 mls/hr IV Q12H [facility] Last Admin: 09/09/19 04:32 Dose: Not Given Lidocaine HCl (Xylocaine 1%) Confirm Administered Dose 20 ml .ROUTE .STK-MED ONE Stop: 09/07/19 08:10 Midazolam HCl (Versed 1 Mg/Ml) Confirm Administered Dose 4 mg .ROUTE .STK-MED ONE Stop: 09/07/19 11:24 Propofol (Diprivan 20 Ml) Confirm Administered Dose 400 mg .ROUTE .STK-MED ONE Stop: 09/07/19 11:24 Propofol (Diprivan 20 Ml) Confirm Administered Dose 400 mg .ROUTE .STK-MED ONE Stop: 09/07/19 13:17 Vancomycin HCl (Pharmacy To Dose - Vancomycin) 1 dose .XX ASDIRECTED [facility] - Exam General: Alert, Oriented, Cooperative, No Acute Distress Lungs: Clear to Auscultation, Normal Respiratory Effort Cardiovascular: Regular Rate, Regular Rhythm GI/Abdominal Exam: Normal Bowel Sounds, Soft, Non-Tender Extremities: Normal Inspection, Normal Range of Motion, Non-Tender, No Pedal Edema Wound/Incisions: Dressing Dry and Intact (Wound vac in place to R knee with knee immobilizer) Psy/Mental Status: Alert, Normal Affect, Normal Mood Sepsis Event Note - Evaluation Sepsis Screening Result: No Definite Risk - Focused Exam Vital Signs: Vital Signs Temp Pulse Resp BP Pulse Ox 09/10/19 04:00 97.8 F 70 16 109/60 96 09/09/19 23:41 98.0 F 69 18 107/51 L 95 Date Exam was Performed: 09/10/19 Time Exam was Performed: 09:21 - Problem List & Annotations (1) MRSA (methicillin resistant staph aureus) culture positive SNOMED Code(s): 092699689 Code(s): Z22.322 - CARRIER OR SUSPECTED CARRIER OF METHICILLIN RESIS STAPH Status: Acute Current Visit: Yes (2) Postoperative wound infection SNOMED Code(s): 01449830, 769266004 Code(s): T81.49XA - INFECTION FOLLOWING A PROCEDURE, OTHER SURGICAL SITE, INIT Status: Acute Current Visit: Yes (3) HTN (hypertension) SNOMED Code(s): 99476744 Code(s): I10 - ESSENTIAL (PRIMARY) HYPERTENSION Status: Acute Current Visit: No Qualifiers: Hypertension type: essential hypertension Qualified Code(s): I10 - Essential (primary) hypertension (4) Infection of total knee replacement SNOMED Code(s): 073469432 Code(s): T84.59XA - INFECT/INFLM REACTION DUE TO OTH INTERNAL JOINT PROSTH, INIT; Z96.659 - PRESENCE OF UNSPECIFIED ARTIFICIAL KNEE JOINT Status: Acute Current Visit: No Qualifiers: Encounter type: initial encounter Qualified Code(s): T84.59XA - Infection and inflammatory reaction due to other internal joint prosthesis, initial encounter; Z96.659 - Presence of unspecified artificial knee joint - Problem List Review Problem List Initiated/Reviewed/Updated: Yes - Plan Plan:: This 63 year old male admitted with infected R TKA, Orthopedics consulted Hospitalist service for medical management of HTN. 1. R TKA infection: - Per Orthopedics - MRSA grew out previously, treating with Vancomycin 2. HTN: - Stable, - Continue Coreg, Enalapril and Norvasc in am - Monitor BMP daily 3. Anemia: - Hgb 7.9 today, asymptomatic. - Monitor. VTE prophylaxis: Would recommend when deemed appropriate by Orthopedics Dispo: Has expressed interest in rehabilitation for ambulation and assistance. office services assistant working on this.
[2019-09-10] MEDS: Aspirin 325 MG Tab PO SCH (08:26)
[2019-09-10] MEDS: amLODIPine 5 MG Tab PO SCH (08:28)
[2019-09-10] MEDS: Carvedilol 3.125 MG Tab PO SCH ×2 (08:28→17:25)
[2019-09-10] MEDS: Polyethylene Glycol 3350 Powder 17 GM Packet PO SCH (08:29)
--- NOTE | 2019-09-10 12:52 | PCM.SN.2 ---
- Free Text/Narrative Note: S) Helder is seen for assessment of right knee and to check on status of applied wound vac. He has no acute concerns. States pain is controlled with pain medications. O) Afebrile. Sitting up in chair, knee immobilizer on with right leg propped up on stool. PP2+ Sensation grossly intact to RLE. Wound vac dressing intact, dressing compressed with no pooling of drainage, and machine states adequate seal. Guestimating no greater then 50cc of additional bloody drainage in wound vac canister from 1800 marking yesterday. Hg low Blood culture with no growth. Wound cultured from surgery this week : normal skin grace A) 1. s/p I&D infected TKA with removal of hardware, replaced with antibiotic spacer 09/01/19 followed by wound dehiscence and a second I&D 09/07/2019 2. low hg 3. HTN 4. MRSA previously cultured in wound. P) 1. Continue wound vac. Nursing to reinforce wound vac dressing if seal is detected. If unable to secure an adequate seal, reapply new wound vac dressing. I plan to change wound vac dressing on Friday09/13/2019 2. Vancomycin dosed per pharmacy 3. Knee immobilizer on at all times. 4. Continue PT. WBAT with knee immobilizer on. 5. Polar ice TID-QID to minimize soft tissue swelling 6. ASA 325mg daily for DVT prophylaxis, along with ambulation. 7. Case management assisting with long-term placement for 6 week IV antibiotic therapy (he has PICC line, inserted 09/03/19) and wound vac management (dressing change every 3-4 days and as needed if not working/not sealed). 8. Hospitalist services for management of HTN, and now in the absence of orthopedic coverage until Dr. Lieberman returns.
[2019-09-11 05:37] LABS: BLOOD UREA NITROGEN,BUN 13 mg/dL (7.0-18.0); CARBON DIOXIDE,CO2 28.2 mmol/L (21.0-32.0); CHLORIDE,CL 103 mmol/L (98-107); GLUCOSE RANDOM 108 mg/dL (74-106); POTASSIUM,K 4.3 mmol/L (3.5-5.1); SODIUM,NA 139 mmol/L (136-148)
[2019-09-11] MEDS: Acetaminophen/oxyCODONE 325-5 MG Tab PO PRN ×2 (08:49→18:01)
[2019-09-11] MEDS: Aspirin 325 MG Tab PO SCH (08:51)
[2019-09-11] MEDS: amLODIPine 5 MG Tab PO SCH (08:52)
[2019-09-11] MEDS: Carvedilol 3.125 MG Tab PO SCH ×2 (08:53→18:02)
[2019-09-11] MEDS: Polyethylene Glycol 3350 Powder 17 GM Packet PO SCH (09:12)
--- NOTE | 2019-09-11 10:44 | PCM.PN ---
- General Info Date of Service: 09/11/19 Admission Dx/Problem (Free Text): Admission Diagnosis/Problem Admission Diagnosis/Problem Infection of knee Subjective Update: Feeling ok today, Knee pain is well controlled. No Chest pain or SOB. No fevers. - Review of Systems General: Denies: Fever, Weakness Pulmonary: Denies: Shortness of Breath, Sputum, Hemoptysis Cardiovascular: Denies: Chest Pain, Palpitations Gastrointestinal: Denies: Abdominal Pain, Constipation Genitourinary: Denies: Dysuria, Frequency, Burning Musculoskeletal: Denies: Neck Pain, Shoulder Pain, Arm Pain Skin: Denies: Cyanosis, Jaundice, Mottled Neurological: Denies: Confusion, Dizziness, Headache - Patient Data Vitals - Most Recent: Last Vital Signs Temp 37 C 09/11/19 04:00 Pulse 72 09/11/19 08:53 Resp 16 09/11/19 08:00 BP 119/62 09/11/19 08:53 Pulse Ox 96 09/11/19 08:00 Weight - Most Recent: 123.377 kg I&O - Last 24 Hours: Intake & Output 09/10/19 09/11/19 09/11/19 22:59 06:59 14:59 Intake Total 850 350 Output Total 500 600 Balance 350 -250 Lab Results Last 24 Hours: Laboratory Results - last 24 hr 09/11/19 09/11/19 Range/Units 05:20 05:20 WBC 7.05 (4.0-11.0) K/uL RBC 2.94 L (4.50-5.90) M/uL Hgb 7.7 L (13.0-17.0) g/dL Hct 25.3 L (38.0-50.0) % MCV 86.1 (80.0-98.0) fL MCH 26.2 L (27.0-32.0) pg MCHC 30.4 L (31.0-37.0) g/dL RDW Std Deviation 51.6 (28.0-62.0) fl RDW Coeff of Yesika 16 H (11.0-15.0) % Plt Count 690 H (150-400) K/uL MPV 7.50 (7.40-12.00) fL Neut % (Auto) 59.5 (48.0-80.0) % Lymph % (Auto) 25.0 (16.0-40.0) % [place] % (Auto) 11.1 (0.0-15.0) % Eos % (Auto) 4.1 (0.0-7.0) % Baso % (Auto) 0.3 (0.0-1.5) % Neut # (Auto) 4.2 (1.4-5.7) K/uL Lymph # (Auto) 1.8 (0.6-2.4) K/uL [place] # (Auto) 0.8 (0.0-0.8) K/uL Eos # (Auto) 0.3 (0.0-0.7) K/uL Baso # (Auto) 0.0 (0.0-0.1) K/uL Nucleated RBC % 0.0 /100WBC Nucleated RBCs # 0 K/uL Sodium 139 (136-148) mmol/L Potassium 4.3 (3.5-5.1) mmol/L Chloride 103 (98-107) mmol/L Carbon Dioxide 28.2 (21.0-32.0) mmol/L BUN 13 (7.0-18.0) mg/dL Creatinine 1.1 (0.8-1.3) mg/dL Est Cr Clr Drug Dosing 71.89 mL/min Estimated GFR (MDRD) > 60.0 ml/min Glucose 108 H (74-106) mg/dL Calcium 7.7 L (8.5-10.1) mg/dL Magnesium 2.2 (1.8-2.4) mg/dL Hernán Results Last 24 Hours: Microbiology 09/06/19 16:30 Aerobic Blood Culture - Preliminary Blood - Venous - Lab Draw NO GROWTH AFTER 4 DAYS Anaerobic Blood Culture - Preliminary NO GROWTH AFTER 4 DAYS 09/06/19 16:20 Aerobic Blood Culture - Preliminary Blood - Venous NO GROWTH AFTER 4 DAYS Anaerobic Blood Culture - Preliminary NO GROWTH AFTER 4 DAYS Med Orders - Current: Current Medications Al Hydroxide/Mg Hydroxide (Mag-Al Plus) 30 ml PO Q4H PRN PRN Reason: Indigestion Amlodipine Besylate (Norvasc) 10 mg PO DAILY [facility] Last Admin: 09/11/19 08:52 Dose: 10 mg Aspirin (Aspirin) 325 mg PO DAILY [facility] Last Admin: 09/11/19 08:51 Dose: 325 mg Bisacodyl (Dulcolax) 10 mg RECTAL DAILY PRN PRN Reason: Constipation Carvedilol (Coreg) 3.125 mg PO BIDMEALS [facility] Last Admin: 09/11/19 08:53 Dose: 3.125 mg Diphenhydramine HCl (Benadryl) 25 - 50 mg PO Q6H PRN PRN Reason: Itching Docusate Sodium (Colace) 100 mg PO BID PRN PRN Reason: Constipation Enalapril Maleate (Vasotec) 10 mg PO DAILY [facility] Last Admin: 09/11/19 08:52 Dose: 10 mg Vancomycin HCl 1 gm/ Sodium (Chloride) 250 mls @ 166 mls/hr IV Q12H [facility] Last Admin: 09/11/19 05:21 Dose: 166 mls/hr Ondansetron HCl (Zofran) 4 mg IVPUSH Q6H PRN PRN Reason: Nausea/Vomiting Oxycodone/Acetaminophen (Percocet 325-5 Mg) 1 - 2 tab PO Q6HR PRN PRN Reason: Pain Last Admin: 09/11/19 08:49 Dose: 2 tab Polyethylene Glycol (Miralax) 17 gm PO DAILY [facility] Last Admin: 09/11/19 09:12 Dose: 17 gm Sodium Chloride (Saline Flush) 10 ml FLUSH ASDIRECTED PRN PRN Reason: Keep Vein Open Sodium Chloride (Saline Flush) 2.5 ml FLUSH ASDIRECTED PRN PRN Reason: Keep Vein Open Discontinued Medications Bupivacaine HCl (Sensorcaine-Mpf 0.5%) Confirm Administered Dose 10 ml .ROUTE .STK-MED ONE Stop: 09/07/19 09:25 Bupivacaine HCl/Epinephrine Bitart (Marcaine 0.5%/Epinephrine 1:200,000) Confirm Administered Dose 10 ml .ROUTE .STK-MED ONE Stop: 09/07/19 08:10 Bupivacaine HCl/Epinephrine Bitart (Marcaine 0.5%/Epinephrine 1:200,000) Confirm Administered Dose 10 ml .ROUTE .STK-MED ONE Stop: 09/07/19 13:51 Gentamicin Sulfate (Gentamicin) Confirm Administered Dose 160 mg .ROUTE .STK- MED ONE Stop: 09/07/19 08:23 Gentamicin Sulfate (Gentamicin) Confirm Administered Dose 80 mg .ROUTE .STK-MED ONE Stop: 09/07/19 12:56 Lactated Ringer's (Ringers, Lactated) 1,000 mls @ 75 mls/hr IV ASDIRECTED [facility] Last Admin: 09/06/19 23:57 Dose: 75 mls/hr Vancomycin HCl 1.5 gm/ Premix 300 mls @ 200 mls/hr IV Q12H [facility] Last Admin: 09/09/19 04:32 Dose: Not Given Lidocaine HCl (Xylocaine 1%) Confirm Administered Dose 20 ml .ROUTE .STK-MED ONE Stop: 09/07/19 08:10 Midazolam HCl (Versed 1 Mg/Ml) Confirm Administered Dose 4 mg .ROUTE .STK-MED ONE Stop: 09/07/19 11:24 Propofol (Diprivan 20 Ml) Confirm Administered Dose 400 mg .ROUTE .STK-MED ONE Stop: 09/07/19 11:24 Propofol (Diprivan 20 Ml) Confirm Administered Dose 400 mg .ROUTE .STK-MED ONE Stop: 09/07/19 13:17 Vancomycin HCl (Pharmacy To Dose - Vancomycin) 1 dose .XX ASDIRECTED [facility] - Exam General: Alert, Oriented HEENT: Mucous Membr. Moist/[place] Neck: Supple, Trachea Midline Lungs: Clear to Auscultation, Normal Respiratory Effort GI/Abdominal Exam: Normal Bowel Sounds, Soft, Non-Tender Extremities: Normal Inspection, Normal Range of Motion Peripheral Pulses: 3+: Dorsalis Pedis (L), Dorsalis Pedis (R) Wound/Incisions: Healing Well, Dressing Dry and Intact, Drainage Neurological: No New Focal Deficit Psy/Mental Status: Alert, Normal Affect Sepsis Event Note - Evaluation Sepsis Screening Result: No Definite Risk - Focused Exam Vital Signs: Vital Signs Temp Pulse Pulse Resp BP BP Pulse Ox 09/11/19 08:53 72 119/62 09/11/19 08:52 119/62 09/11/19 08:00 72 16 119/62 96 09/11/19 04:00 37 C 77 18 122/61 94 L 09/11/19 00:00 36.6 C 75 18 110/72 96 Date Exam was Performed: 09/11/19 Time Exam was Performed: 10:39 - Problem List & Annotations (1) MRSA (methicillin resistant staph aureus) culture positive SNOMED Code(s): 482226499 Code(s): Z22.322 - CARRIER OR SUSPECTED CARRIER OF METHICILLIN RESIS STAPH Status: Acute Current Visit: Yes (2) Postoperative wound infection SNOMED Code(s): 19635578, 947123677 Code(s): T81.49XA - INFECTION FOLLOWING A PROCEDURE, OTHER SURGICAL SITE, INIT Status: Acute Current Visit: Yes (3) HTN (hypertension) SNOMED Code(s): 31378100 Code(s): I10 - ESSENTIAL (PRIMARY) HYPERTENSION Status: Acute Current Visit: No Qualifiers: Hypertension type: essential hypertension Qualified Code(s): I10 - Essential (primary) hypertension (4) Infection of total knee replacement SNOMED Code(s): 991234001 Code(s): T84.59XA - INFECT/INFLM REACTION DUE TO OTH INTERNAL JOINT PROSTH, INIT; Z96.659 - PRESENCE OF UNSPECIFIED ARTIFICIAL KNEE JOINT Status: Acute Current Visit: No Qualifiers: Encounter type: initial encounter Qualified Code(s): T84.59XA - Infection and inflammatory reaction due to other internal joint prosthesis, initial encounter; Z96.659 - Presence of unspecified artificial knee joint - Problem List Review Problem List Initiated/Reviewed/Updated: Yes - Plan Plan:: This 63 year old male admitted with infected R TKA, Orthopedics consulted Hospitalist service for medical management of HTN. 1. R TKA infection: -cont Vancomycin, MRSA grew out previously -Wound vac in place 2. HTN: - Stable, - Continue Coreg, Enalapril and Norvasc in am - Monitor BMP daily 3. Anemia: - Hgb 7.7 today, denied dizziness, chest pain, SOB - Monitor daily, transfuse if <7.0 VTE prophylaxis: Would recommend when deemed appropriate by Orthopedics Dispo: Has expressed interest in rehabilitation for ambulation and assistance. business services specialist sales working on this.
[2019-09-11 11:17] LABS: HEMOGLOBIN A1C 6.2 % (4.5-6.2)
[2019-09-12] MEDS ORDERED: Vancomycin 1.25 GM SDV ONE (03:52)
[2019-09-12] MEDS ORDERED: Sodium Chloride 0.9% 250 ML ONE (03:52)
[2019-09-12 07:18] LABS: BLOOD UREA NITROGEN,BUN 13 mg/dL (7.0-18.0); CARBON DIOXIDE,CO2 27.9 mmol/L (21.0-32.0); CHLORIDE,CL 106 mmol/L (98-107); GLUCOSE RANDOM 106 mg/dL (74-106); POTASSIUM,K 4.4 mmol/L (3.5-5.1); SODIUM,NA 141 mmol/L (136-148)
[2019-09-12] MEDS: amLODIPine 5 MG Tab PO SCH (09:01)
[2019-09-12] MEDS: Carvedilol 3.125 MG Tab PO SCH ×2 (09:03→16:07)
[2019-09-12] MEDS: Polyethylene Glycol 3350 Powder 17 GM Packet PO SCH (09:03)
[2019-09-12] MEDS: Aspirin 325 MG Tab PO SCH (09:03)
[2019-09-12] MEDS: Acetaminophen/oxyCODONE 325-5 MG Tab PO PRN ×2 (10:03→18:27)
--- NOTE | 2019-09-12 12:09 | PCM.PN ---
- General Info Date of Service: 09/12/19 Admission Dx/Problem (Free Text): Admission Diagnosis/Problem Admission Diagnosis/Problem Infection of knee Subjective Update: Feeling well today, Knee pain is well controlled. No Chest pain or SOB. No fevers. states didnt get much sleep last night. - Review of Systems General: Denies: Fever, Weakness, Fatigue HEENT: Denies: Contact Lenses, Dysphasia Pulmonary: Denies: Shortness of Breath, Pleuritic Chest Pain Cardiovascular: Denies: Chest Pain, Palpitations, Dyspnea on Exertion Gastrointestinal: Denies: Abdominal Pain, Constipation Genitourinary: Denies: Dysuria, Frequency, Burning Musculoskeletal: Reports: Leg Pain, Joint Pain. Denies: Neck Pain, Shoulder Pain, Arm Pain, Hand Pain, Foot Pain, Joint Swelling - Patient Data Vitals - Most Recent: Last Vital Signs Temp 36.8 C 09/12/19 07:40 Pulse 76 09/12/19 09:03 Resp 18 09/12/19 07:40 BP 116/63 09/12/19 09:03 Pulse Ox 95 09/12/19 07:40 Weight - Most Recent: 123.377 kg I&O - Last 24 Hours: Intake & Output 09/11/19 09/12/19 09/12/19 22:59 06:59 14:59 Intake Total 800 200 Output Total 700 1000 Balance 100 -800 Lab Results Last 24 Hours: Laboratory Results - last 24 hr 09/11/19 09/12/19 09/12/19 Range/Units 17:33 06:52 06:52 WBC 6.65 (4.0-11.0) K/uL RBC 3.04 L (4.50-5.90) M/uL Hgb 8.0 L (13.0-17.0) g/dL Hct 26.4 L (38.0-50.0) % MCV 86.8 (80.0-98.0) fL MCH 26.3 L (27.0-32.0) pg MCHC 30.3 L (31.0-37.0) g/dL RDW Std Deviation 52.3 (28.0-62.0) fl RDW Coeff of Yesika 16 H (11.0-15.0) % Plt Count 665 H (150-400) K/uL MPV 7.50 (7.40-12.00) fL Neut % (Auto) 61.5 (48.0-80.0) % Lymph % (Auto) 24.7 (16.0-40.0) % [place] % (Auto) 10.2 (0.0-15.0) % Eos % (Auto) 3.3 (0.0-7.0) % Baso % (Auto) 0.3 (0.0-1.5) % Neut # (Auto) 4.1 (1.4-5.7) K/uL Lymph # (Auto) 1.6 (0.6-2.4) K/uL [place] # (Auto) 0.7 (0.0-0.8) K/uL Eos # (Auto) 0.2 (0.0-0.7) K/uL Baso # (Auto) 0.0 (0.0-0.1) K/uL Nucleated RBC % 0.0 /100WBC Nucleated RBCs # 0 K/uL Sodium 141 (136-148) mmol/L Potassium 4.4 (3.5-5.1) mmol/L Chloride 106 (98-107) mmol/L Carbon Dioxide 27.9 (21.0-32.0) mmol/L BUN 13 (7.0-18.0) mg/dL Creatinine 1.1 (0.8-1.3) mg/dL Est Cr Clr Drug Dosing 71.89 mL/min Estimated GFR (MDRD) > 60.0 ml/min Glucose 106 (74-106) mg/dL Calcium 7.6 L (8.5-10.1) mg/dL Magnesium 2.3 (1.8-2.4) mg/dL Vancomycin Trough 12.6 H (5.0-10.0) ug/mL Hernán Results Last 24 Hours: Microbiology 09/06/19 16:30 Aerobic Blood Culture - Final Blood - Venous - Lab Draw NO GROWTH AFTER 5 DAYS Anaerobic Blood Culture - Final NO GROWTH AFTER 5 DAYS 09/06/19 16:20 Aerobic Blood Culture - Final Blood - Venous NO GROWTH AFTER 5 DAYS Anaerobic Blood Culture - Final NO GROWTH AFTER 5 DAYS Med Orders - Current: Current Medications Al Hydroxide/Mg Hydroxide (Mag-Al Plus) 30 ml PO Q4H PRN PRN Reason: Indigestion Amlodipine Besylate (Norvasc) 10 mg PO DAILY [facility] Last Admin: 09/12/19 09:01 Dose: 10 mg Aspirin (Aspirin) 325 mg PO DAILY [facility] Last Admin: 09/12/19 09:03 Dose: 325 mg Bisacodyl (Dulcolax) 10 mg RECTAL DAILY PRN PRN Reason: Constipation Carvedilol (Coreg) 3.125 mg PO BIDMEALS [facility] Last Admin: 09/12/19 09:03 Dose: 3.125 mg Diphenhydramine HCl (Benadryl) 25 - 50 mg PO Q6H PRN PRN Reason: Itching Docusate Sodium (Colace) 100 mg PO BID PRN PRN Reason: Constipation Enalapril Maleate (Vasotec) 10 mg PO DAILY [facility] Last Admin: 09/12/19 09:02 Dose: 10 mg Vancomycin HCl 1.25 gm/ Sodium (Chloride) 250 mls @ 166.667 mls/hr IV Q12H [facility] Ondansetron HCl (Zofran) 4 mg IVPUSH Q6H PRN PRN Reason: Nausea/Vomiting Oxycodone/Acetaminophen (Percocet 325-5 Mg) 1 - 2 tab PO Q6HR PRN PRN Reason: Pain Last Admin: 09/12/19 10:03 Dose: 1 tab Polyethylene Glycol (Miralax) 17 gm PO DAILY [facility] Last Admin: 09/12/19 09:03 Dose: 17 gm Sodium Chloride (Saline Flush) 10 ml FLUSH ASDIRECTED PRN PRN Reason: Keep Vein Open Sodium Chloride (Saline Flush) 2.5 ml FLUSH ASDIRECTED PRN PRN Reason: Keep Vein Open Discontinued Medications Bupivacaine HCl (Sensorcaine-Mpf 0.5%) Confirm Administered Dose 10 ml .ROUTE .STK-MED ONE Stop: 09/07/19 09:25 Bupivacaine HCl/Epinephrine Bitart (Marcaine 0.5%/Epinephrine 1:200,000) Confirm Administered Dose 10 ml .ROUTE .STK-MED ONE Stop: 09/07/19 08:10 Bupivacaine HCl/Epinephrine Bitart (Marcaine 0.5%/Epinephrine 1:200,000) Confirm Administered Dose 10 ml .ROUTE .STK-MED ONE Stop: 09/07/19 13:51 Gentamicin Sulfate (Gentamicin) Confirm Administered Dose 160 mg .ROUTE .STK- MED ONE Stop: 09/07/19 08:23 Gentamicin Sulfate (Gentamicin) Confirm Administered Dose 80 mg .ROUTE .STK-MED ONE Stop: 09/07/19 12:56 Lactated Ringer's (Ringers, Lactated) 1,000 mls @ 75 mls/hr IV ASDIRECTED [facility] Last Admin: 09/06/19 23:57 Dose: 75 mls/hr Vancomycin HCl 1.5 gm/ Premix 300 mls @ 200 mls/hr IV Q12H [facility] Last Admin: 09/09/19 04:32 Dose: Not Given Vancomycin HCl 1 gm/ Sodium (Chloride) 250 mls @ 166 mls/hr IV Q12H [facility] Stop: 09/11/19 19:00 Last Admin: 09/11/19 18:02 Dose: 166 mls/hr Vancomycin HCl 1.25 gm/ Sodium (Chloride) 250 mls @ 166.667 mls/hr IV Q12H [facility] Vancomycin HCl 1.25 gm/ Sodium (Chloride) 250 mls @ 166.667 mls/hr IV Q12H [facility] Last Admin: 09/12/19 04:10 Dose: 166.667 mls/hr Sodium Chloride (Normal Saline (Advbag)) Confirm Administered Dose 250 mls @ as directed .ROUTE .STK-MED ONE Stop: 09/12/19 03:53 Last Admin: 09/12/19 04:43 Dose: Not Given Lidocaine HCl (Xylocaine 1%) Confirm Administered Dose 20 ml .ROUTE .STK-MED ONE Stop: 09/07/19 08:10 Midazolam HCl (Versed 1 Mg/Ml) Confirm Administered Dose 4 mg .ROUTE .STK-MED ONE Stop: 09/07/19 11:24 Propofol (Diprivan 20 Ml) Confirm Administered Dose 400 mg .ROUTE .STK-MED ONE Stop: 09/07/19 11:24 Propofol (Diprivan 20 Ml) Confirm Administered Dose 400 mg .ROUTE .STK-MED ONE Stop: 09/07/19 13:17 Vancomycin HCl (Pharmacy To Dose - Vancomycin) 1 dose .XX ASDIRECTED [facility] Vancomycin HCl (Vancomycin) Confirm Administered Dose 1.25 gm .ROUTE .STK-MED ONE Stop: 09/12/19 03:53 Last Admin: 09/12/19 04:43 Dose: Not Given - Exam General: Alert, Oriented, Cooperative, No Acute Distress Neck: Supple, Trachea Midline Lungs: Clear to Auscultation, Normal Respiratory Effort Cardiovascular: Regular Rate, Regular Rhythm, No Murmurs GI/Abdominal Exam: Normal Bowel Sounds, Soft, Non-Tender Extremities: Normal Inspection, Leg Pain (right knee ), Limited Range of Motion Peripheral Pulses: 3+: Posterior Tibial (L), Posterior Tibial (R) Wound/Incisions: Healing Well, Drainage Neurological: No New Focal Deficit Sepsis Event Note - Evaluation Sepsis Screening Result: No Definite Risk - Focused Exam Vital Signs: Vital Signs Temp Pulse Pulse Resp BP BP Pulse Ox 09/12/19 09:03 76 116/63 09/12/19 09:02 116/63 09/12/19 09:01 116/63 09/12/19 07:40 36.8 C 74 18 126/58 L 95 09/12/19 04:00 36.8 C 80 18 120/60 96 Date Exam was Performed: 09/12/19 Time Exam was Performed: 12:06 - Problem List & Annotations (1) MRSA (methicillin resistant staph aureus) culture positive SNOMED Code(s): 319788574 Code(s): Z22.322 - CARRIER OR SUSPECTED CARRIER OF METHICILLIN RESIS STAPH Status: Acute Current Visit: Yes (2) Postoperative wound infection SNOMED Code(s): 19632776, 599747349 Code(s): T81.49XA - INFECTION FOLLOWING A PROCEDURE, OTHER SURGICAL SITE, INIT Status: Acute Current Visit: Yes (3) HTN (hypertension) SNOMED Code(s): 25968219 Code(s): I10 - ESSENTIAL (PRIMARY) HYPERTENSION Status: Acute Current Visit: No Qualifiers: Hypertension type: essential hypertension Qualified Code(s): I10 - Essential (primary) hypertension (4) Infection of total knee replacement SNOMED Code(s): 518488132 Code(s): T84.59XA - INFECT/INFLM REACTION DUE TO OTH INTERNAL JOINT PROSTH, INIT; Z96.659 - PRESENCE OF UNSPECIFIED ARTIFICIAL KNEE JOINT Status: Acute Current Visit: No Qualifiers: Encounter type: initial encounter Qualified Code(s): T84.59XA - Infection and inflammatory reaction due to other internal joint prosthesis, initial encounter; Z96.659 - Presence of unspecified artificial knee joint - Problem List Review Problem List Initiated/Reviewed/Updated: Yes - Plan Plan:: This 63 year old male admitted with infected R TKA, Orthopedics consulted Hospitalist service for medical management of HTN. 1. R TKA infection: -cont Vancomycin, MRSA grew out previously -Wound vac in place 2. HTN: - Stable, - Continue Coreg, Enalapril and Norvasc in am - Monitor BMP daily 3. Anemia: - Hgb 8.0 today stable - Monitor daily, transfuse if <7.0 VTE prophylaxis: Would recommend when deemed appropriate by Orthopedics Dispo: Has expressed interest in rehabilitation for ambulation and assistance. protective services case worker working on this.
[2019-09-13] MEDS: Acetaminophen/oxyCODONE 325-5 MG Tab PO PRN ×3 (00:31→20:33)
[2019-09-13 06:35] LABS: BLOOD UREA NITROGEN,BUN 17 mg/dL (7.0-18.0); CARBON DIOXIDE,CO2 28.1 mmol/L (21.0-32.0); CHLORIDE,CL 105 mmol/L (98-107); GLUCOSE RANDOM 104 mg/dL (74-106); POTASSIUM,K 4.2 mmol/L (3.5-5.1); SODIUM,NA 139 mmol/L (136-148)
[2019-09-13] MEDS: Polyethylene Glycol 3350 Powder 17 GM Packet PO SCH (08:22)
[2019-09-13] MEDS: Carvedilol 3.125 MG Tab PO SCH ×2 (08:22→16:44)
[2019-09-13] MEDS: Aspirin 325 MG Tab PO SCH (08:22)
[2019-09-13] MEDS: amLODIPine 5 MG Tab PO SCH (08:22)
--- NOTE | 2019-09-13 08:57 | PCM.PN ---
- General Info Date of Service: 09/13/19 Admission Dx/Problem (Free Text): Admission Diagnosis/Problem Admission Diagnosis/Problem Infection of knee Subjective Update: Doing well today, reports pain is much better compared to a few days ago. No chest pain or SOB. Having BMs and urinating well. tolerated his diet. Functional Status: Reports: Pain Controlled, Tolerating Diet, Ambulating, Urinating - Review of Systems Pulmonary: Reports: No Symptoms. Denies: Shortness of Breath Cardiovascular: Reports: No Symptoms. Denies: Chest Pain Gastrointestinal: Reports: No Symptoms. Denies: Abdominal Pain, Nausea, Vomiting Skin: Reports: No Symptoms Neurological: Reports: No Symptoms Psychiatric: Reports: No Symptoms - Patient Data Vitals - Most Recent: Last Vital Signs Temp 97.6 F 09/13/19 07:25 Pulse 76 09/13/19 08:22 Resp 17 09/13/19 07:25 BP 117/58 L 09/13/19 08:22 Pulse Ox 96 09/13/19 07:25 Weight - Most Recent: 123.377 kg I&O - Last 24 Hours: Intake & Output 09/12/19 09/13/19 09/13/19 22:59 06:59 14:59 Intake Total 1150 950 Output Total 1300 450 Balance -150 500 Lab Results Last 24 Hours: Laboratory Results - last 24 hr 09/13/19 09/13/19 Range/Units 06:00 06:00 WBC 7.51 (4.0-11.0) K/uL RBC 2.93 L (4.50-5.90) M/uL Hgb 7.8 L (13.0-17.0) g/dL Hct 25.5 L (38.0-50.0) % MCV 87.0 (80.0-98.0) fL MCH 26.6 L (27.0-32.0) pg MCHC 30.6 L (31.0-37.0) g/dL RDW Std Deviation 52.8 (28.0-62.0) fl RDW Coeff of Yesika 16 H (11.0-15.0) % Plt Count 635 H (150-400) K/uL MPV 7.50 (7.40-12.00) fL Neut % (Auto) 56.7 (48.0-80.0) % Lymph % (Auto) 28.9 (16.0-40.0) % [place] % (Auto) 11.1 (0.0-15.0) % Eos % (Auto) 2.9 (0.0-7.0) % Baso % (Auto) 0.4 (0.0-1.5) % Neut # (Auto) 4.3 (1.4-5.7) K/uL Lymph # (Auto) 2.2 (0.6-2.4) K/uL [place] # (Auto) 0.8 (0.0-0.8) K/uL Eos # (Auto) 0.2 (0.0-0.7) K/uL Baso # (Auto) 0.0 (0.0-0.1) K/uL Nucleated RBC % 0.0 /100WBC Nucleated RBCs # 0 K/uL Sodium 139 (136-148) mmol/L Potassium 4.2 (3.5-5.1) mmol/L Chloride 105 (98-107) mmol/L Carbon Dioxide 28.1 (21.0-32.0) mmol/L BUN 17 (7.0-18.0) mg/dL Creatinine 1.1 (0.8-1.3) mg/dL Est Cr Clr Drug Dosing 71.89 mL/min Estimated GFR (MDRD) > 60.0 ml/min Glucose 104 (74-106) mg/dL Calcium 7.5 L (8.5-10.1) mg/dL Magnesium 2.1 (1.8-2.4) mg/dL Med Orders - Current: Current Medications Al Hydroxide/Mg Hydroxide (Mag-Al Plus) 30 ml PO Q4H PRN PRN Reason: Indigestion Amlodipine Besylate (Norvasc) 10 mg PO DAILY [facility] Last Admin: 09/13/19 08:22 Dose: 10 mg Aspirin (Aspirin) 325 mg PO DAILY [facility] Last Admin: 09/13/19 08:22 Dose: 325 mg Bisacodyl (Dulcolax) 10 mg RECTAL DAILY PRN PRN Reason: Constipation Carvedilol (Coreg) 3.125 mg PO BIDMEALS [facility] Last Admin: 09/13/19 08:22 Dose: 3.125 mg Diphenhydramine HCl (Benadryl) 25 - 50 mg PO Q6H PRN PRN Reason: Itching Docusate Sodium (Colace) 100 mg PO BID PRN PRN Reason: Constipation Enalapril Maleate (Vasotec) 10 mg PO DAILY [facility] Last Admin: 09/13/19 08:22 Dose: 10 mg Vancomycin HCl 1.25 gm/ Sodium (Chloride) 250 mls @ 166.667 mls/hr IV Q12H [facility] Last Admin: 09/13/19 04:07 Dose: 166.667 mls/hr Ondansetron HCl (Zofran) 4 mg IVPUSH Q6H PRN PRN Reason: Nausea/Vomiting Oxycodone/Acetaminophen (Percocet 325-5 Mg) 1 - 2 tab PO Q6HR PRN PRN Reason: Pain Last Admin: 09/13/19 00:31 Dose: 1 tab Polyethylene Glycol (Miralax) 17 gm PO DAILY [facility] Last Admin: 09/13/19 08:22 Dose: 17 gm Sodium Chloride (Saline Flush) 10 ml FLUSH ASDIRECTED PRN PRN Reason: Keep Vein Open Sodium Chloride (Saline Flush) 2.5 ml FLUSH ASDIRECTED PRN PRN Reason: Keep Vein Open Discontinued Medications Bupivacaine HCl (Sensorcaine-Mpf 0.5%) Confirm Administered Dose 10 ml .ROUTE .STK-MED ONE Stop: 09/07/19 09:25 Bupivacaine HCl/Epinephrine Bitart (Marcaine 0.5%/Epinephrine 1:200,000) Confirm Administered Dose 10 ml .ROUTE .STK-MED ONE Stop: 09/07/19 08:10 Bupivacaine HCl/Epinephrine Bitart (Marcaine 0.5%/Epinephrine 1:200,000) Confirm Administered Dose 10 ml .ROUTE .STK-MED ONE Stop: 09/07/19 13:51 Gentamicin Sulfate (Gentamicin) Confirm Administered Dose 160 mg .ROUTE .STK- MED ONE Stop: 09/07/19 08:23 Gentamicin Sulfate (Gentamicin) Confirm Administered Dose 80 mg .ROUTE .STK-MED ONE Stop: 09/07/19 12:56 Lactated Ringer's (Ringers, Lactated) 1,000 mls @ 75 mls/hr IV ASDIRECTED [facility] Last Admin: 09/06/19 23:57 Dose: 75 mls/hr Vancomycin HCl 1.5 gm/ Premix 300 mls @ 200 mls/hr IV Q12H [facility] Last Admin: 09/09/19 04:32 Dose: Not Given Vancomycin HCl 1 gm/ Sodium (Chloride) 250 mls @ 166 mls/hr IV Q12H [facility] Stop: 09/11/19 19:00 Last Admin: 09/11/19 18:02 Dose: 166 mls/hr Vancomycin HCl 1.25 gm/ Sodium (Chloride) 250 mls @ 166.667 mls/hr IV Q12H [facility] Vancomycin HCl 1.25 gm/ Sodium (Chloride) 250 mls @ 166.667 mls/hr IV Q12H [facility] Last Admin: 09/12/19 04:10 Dose: 166.667 mls/hr Sodium Chloride (Normal Saline (Advbag)) Confirm Administered Dose 250 mls @ as directed .ROUTE .STK-MED ONE Stop: 09/12/19 03:53 Last Admin: 09/12/19 04:43 Dose: Not Given Lidocaine HCl (Xylocaine 1%) Confirm Administered Dose 20 ml .ROUTE .STK-MED ONE Stop: 09/07/19 08:10 Midazolam HCl (Versed 1 Mg/Ml) Confirm Administered Dose 4 mg .ROUTE .STK-MED ONE Stop: 09/07/19 11:24 Propofol (Diprivan 20 Ml) Confirm Administered Dose 400 mg .ROUTE .STK-MED ONE Stop: 09/07/19 11:24 Propofol (Diprivan 20 Ml) Confirm Administered Dose 400 mg .ROUTE .STK-MED ONE Stop: 09/07/19 13:17 Vancomycin HCl (Pharmacy To Dose - Vancomycin) 1 dose .XX ASDIRECTED [facility] Vancomycin HCl (Vancomycin) Confirm Administered Dose 1.25 gm .ROUTE .STK-MED ONE Stop: 09/12/19 03:53 Last Admin: 09/12/19 04:43 Dose: Not Given - Exam General: Alert, Oriented, Cooperative, No Acute Distress Lungs: Clear to Auscultation, Normal Respiratory Effort Cardiovascular: Regular Rate, Regular Rhythm GI/Abdominal Exam: Normal Bowel Sounds, Soft, Non-Tender Extremities: Normal Inspection, Normal Range of Motion, Non-Tender, No Pedal Edema Wound/Incisions: Healing Well, Dressing Dry and Intact, No Drainage. No: Erythema Psy/Mental Status: Alert, Normal Affect, Normal Mood Sepsis Event Note - Evaluation Sepsis Screening Result: No Definite Risk - Focused Exam Vital Signs: Vital Signs Temp Pulse Pulse Resp BP BP Pulse Ox 09/13/19 08:22 76 117/58 L 09/13/19 07:25 97.6 F 75 17 117/58 L 96 09/13/19 04:00 98.8 F 74 17 114/50 L 95 09/13/19 00:00 99.1 F 87 18 130/64 97 Date Exam was Performed: 09/13/19 Time Exam was Performed: 08:59 - Problem List & Annotations (1) MRSA (methicillin resistant staph aureus) culture positive SNOMED Code(s): 925810798 Code(s): Z22.322 - CARRIER OR SUSPECTED CARRIER OF METHICILLIN RESIS STAPH Status: Acute Current Visit: Yes (2) Postoperative wound infection SNOMED Code(s): 02665172, 354339963 Code(s): T81.49XA - INFECTION FOLLOWING A PROCEDURE, OTHER SURGICAL SITE, INIT Status: Acute Current Visit: Yes (3) HTN (hypertension) SNOMED Code(s): 21192228 Code(s): I10 - ESSENTIAL (PRIMARY) HYPERTENSION Status: Acute Current Visit: No Qualifiers: Hypertension type: essential hypertension Qualified Code(s): I10 - Essential (primary) hypertension (4) Infection of total knee replacement SNOMED Code(s): 684346801 Code(s): T84.59XA - INFECT/INFLM REACTION DUE TO OTH INTERNAL JOINT PROSTH, INIT; Z96.659 - PRESENCE OF UNSPECIFIED ARTIFICIAL KNEE JOINT Status: Acute Current Visit: No Qualifiers: Encounter type: initial encounter Qualified Code(s): T84.59XA - Infection and inflammatory reaction due to other internal joint prosthesis, initial encounter; Z96.659 - Presence of unspecified artificial knee joint - Problem List Review Problem List Initiated/Reviewed/Updated: Yes - Plan Plan:: This 63 year old male admitted with infected R TKA, Orthopedics consulted Hospitalist service for medical management of HTN. 1. R TKA infection: -cont Vancomycin, MRSA grew out previously -Wound vac in place 2. HTN: - Stable, - Continue Coreg, Enalapril and Norvasc in am - Monitor BMP daily 3. Anemia: - Hgb stable, asymptomatic. - Monitor daily, transfuse if <7.0 VTE prophylaxis: Would recommend when deemed appropriate by Orthopedics Dispo: Has expressed interest in rehabilitation for ambulation and assistance. surgical services tech working on this.
--- NOTE | 2019-09-13 10:47 | PCM.SURGPN ---
- General Info Date of Service: 09/13/19 (1015) Date of Surgery/Procedure: 09/07/19 (I&D Right knee secondary to wound dehiscence s/p I&D for infected TKA 09/01/2019.) POD#: 6 Post-Op Diagnosis: Irrigation and debridement RIGHT knee s/p wound dehiscence and application of wound vac Admission Diagnosis/Problem: Wound dehiscence Functional Status: Reports: Pain Controlled ("Only time I have pain is when walking on it." ), Tolerating Diet, Ambulating (FWB as tolerates while wearing knee immobilzer, FWW and standby assist of nursing staff), Urinating. Denies: New Symptoms - Review of Systems General: Reports: No Symptoms. Denies: Fever HEENT: Reports: No Symptoms Pulmonary: Reports: No Symptoms. Denies: Shortness of Breath Cardiovascular: Reports: No Symptoms. Denies: Chest Pain, Dyspnea on Exertion, Lightheadedness Gastrointestinal: Reports: No Symptoms. Denies: Constipation, Nausea, Vomiting Musculoskeletal: Reports: Joint Pain (knee pain, only when weight bearing.) Neurological: Reports: No Symptoms Psychiatric: Reports: No Symptoms - Patient Data Vitals - Most Recent: Last Vital Signs Temp 36.4 C 09/13/19 07:25 Pulse 76 09/13/19 08:22 Resp 17 09/13/19 07:25 BP 117/58 L 09/13/19 08:22 Pulse Ox 96 09/13/19 07:25 Weight - Most Recent: 123.377 kg I&O - Last 24 Hours: Intake & Output 09/12/19 09/13/19 09/13/19 22:59 06:59 14:59 Intake Total 1150 950 Output Total 1300 450 Balance -150 500 Lab Results Last 24 Hrs: Laboratory Results - last 24 hr 09/13/19 09/13/19 Range/Units 06:00 06:00 WBC 7.51 (4.0-11.0) K/uL RBC 2.93 L (4.50-5.90) M/uL Hgb 7.8 L (13.0-17.0) g/dL Hct 25.5 L (38.0-50.0) % MCV 87.0 (80.0-98.0) fL MCH 26.6 L (27.0-32.0) pg MCHC 30.6 L (31.0-37.0) g/dL RDW Std Deviation 52.8 (28.0-62.0) fl RDW Coeff of Yesika 16 H (11.0-15.0) % Plt Count 635 H (150-400) K/uL MPV 7.50 (7.40-12.00) fL Neut % (Auto) 56.7 (48.0-80.0) % Lymph % (Auto) 28.9 (16.0-40.0) % Parke % (Auto) 11.1 (0.0-15.0) % Eos % (Auto) 2.9 (0.0-7.0) % Baso % (Auto) 0.4 (0.0-1.5) % Neut # (Auto) 4.3 (1.4-5.7) K/uL Lymph # (Auto) 2.2 (0.6-2.4) K/uL Parke # (Auto) 0.8 (0.0-0.8) K/uL Eos # (Auto) 0.2 (0.0-0.7) K/uL Baso # (Auto) 0.0 (0.0-0.1) K/uL Nucleated RBC % 0.0 /100WBC Nucleated RBCs # 0 K/uL Sodium 139 (136-148) mmol/L Potassium 4.2 (3.5-5.1) mmol/L Chloride 105 (98-107) mmol/L Carbon Dioxide 28.1 (21.0-32.0) mmol/L BUN 17 (7.0-18.0) mg/dL Creatinine 1.1 (0.8-1.3) mg/dL Est Cr Clr Drug Dosing 71.89 mL/min Estimated GFR (MDRD) > 60.0 ml/min Glucose 104 (74-106) mg/dL Calcium 7.5 L (8.5-10.1) mg/dL Magnesium 2.1 (1.8-2.4) mg/dL Med Orders - Current: Current Medications Al Hydroxide/Mg Hydroxide (Mag-Al Plus) 30 ml PO Q4H PRN PRN Reason: Indigestion Amlodipine Besylate (Norvasc) 10 mg PO DAILY [facility] Last Admin: 09/13/19 08:22 Dose: 10 mg Aspirin (Aspirin) 325 mg PO DAILY [facility] Last Admin: 09/13/19 08:22 Dose: 325 mg Bisacodyl (Dulcolax) 10 mg RECTAL DAILY PRN PRN Reason: Constipation Carvedilol (Coreg) 3.125 mg PO BIDMEALS [facility] Last Admin: 09/13/19 08:22 Dose: 3.125 mg Diphenhydramine HCl (Benadryl) 25 - 50 mg PO Q6H PRN PRN Reason: Itching Docusate Sodium (Colace) 100 mg PO BID PRN PRN Reason: Constipation Enalapril Maleate (Vasotec) 10 mg PO DAILY [facility] Last Admin: 09/13/19 08:22 Dose: 10 mg Vancomycin HCl 1.25 gm/ Sodium (Chloride) 250 mls @ 166.667 mls/hr IV Q12H [facility] Last Admin: 09/13/19 04:07 Dose: 166.667 mls/hr Ondansetron HCl (Zofran) 4 mg IVPUSH Q6H PRN PRN Reason: Nausea/Vomiting Oxycodone/Acetaminophen (Percocet 325-5 Mg) 1 - 2 tab PO Q6HR PRN PRN Reason: Pain Last Admin: 09/13/19 00:31 Dose: 1 tab Polyethylene Glycol (Miralax) 17 gm PO DAILY [facility] Last Admin: 09/13/19 08:22 Dose: 17 gm Sodium Chloride (Saline Flush) 10 ml FLUSH ASDIRECTED PRN PRN Reason: Keep Vein Open Sodium Chloride (Saline Flush) 2.5 ml FLUSH ASDIRECTED PRN PRN Reason: Keep Vein Open Discontinued Medications Bupivacaine HCl (Sensorcaine-Mpf 0.5%) Confirm Administered Dose 10 ml .ROUTE .STK-MED ONE Stop: 09/07/19 09:25 Bupivacaine HCl/Epinephrine Bitart (Marcaine 0.5%/Epinephrine 1:200,000) Confirm Administered Dose 10 ml .ROUTE .STK-MED ONE Stop: 09/07/19 08:10 Bupivacaine HCl/Epinephrine Bitart (Marcaine 0.5%/Epinephrine 1:200,000) Confirm Administered Dose 10 ml .ROUTE .STK-MED ONE Stop: 09/07/19 13:51 Gentamicin Sulfate (Gentamicin) Confirm Administered Dose 160 mg .ROUTE .STK- MED ONE Stop: 09/07/19 08:23 Gentamicin Sulfate (Gentamicin) Confirm Administered Dose 80 mg .ROUTE .STK-MED ONE Stop: 09/07/19 12:56 Lactated Ringer's (Ringers, Lactated) 1,000 mls @ 75 mls/hr IV ASDIRECTED [facility] Last Admin: 09/06/19 23:57 Dose: 75 mls/hr Vancomycin HCl 1.5 gm/ Premix 300 mls @ 200 mls/hr IV Q12H [facility] Last Admin: 09/09/19 04:32 Dose: Not Given Vancomycin HCl 1 gm/ Sodium (Chloride) 250 mls @ 166 mls/hr IV Q12H [facility] Stop: 09/11/19 19:00 Last Admin: 09/11/19 18:02 Dose: 166 mls/hr Vancomycin HCl 1.25 gm/ Sodium (Chloride) 250 mls @ 166.667 mls/hr IV Q12H [facility] Vancomycin HCl 1.25 gm/ Sodium (Chloride) 250 mls @ 166.667 mls/hr IV Q12H [facility] Last Admin: 09/12/19 04:10 Dose: 166.667 mls/hr Sodium Chloride (Normal Saline (Advbag)) Confirm Administered Dose 250 mls @ as directed .ROUTE .[facility]-MED ONE Stop: 09/12/19 03:53 Last Admin: 09/12/19 04:43 Dose: Not Given Lidocaine HCl (Xylocaine 1%) Confirm Administered Dose 20 ml .ROUTE .STK-MED ONE Stop: 09/07/19 08:10 Midazolam HCl (Versed 1 Mg/Ml) Confirm Administered Dose 4 mg .ROUTE .[facility] ONE Stop: 09/07/19 11:24 Propofol (Diprivan 20 Ml) Confirm Administered Dose 400 mg .ROUTE .STK-MED ONE Stop: 09/07/19 11:24 Propofol (Diprivan 20 Ml) Confirm Administered Dose 400 mg .ROUTE .[facility] ONE Stop: 09/07/19 13:17 Vancomycin HCl (Pharmacy To Dose - Vancomycin) 1 dose .XX ASDIRECTED [facility] Vancomycin HCl (Vancomycin) Confirm Administered Dose 1.25 gm .ROUTE .STK-MED ONE Stop: 09/12/19 03:53 Last Admin: 09/12/19 04:43 Dose: Not Given - Exam Wound/Incisions: Dressing Dry and Intact (wound vac working as evidenced by compressed foam and no alarm alerts), Drainage (serosanguineous drainage present in wound vac tubing.). No: Erythema (no erythema to knee along foam dressing) Quality Assessment: Central Line/PICC, DVT Prophylaxis (ASA 325mg daily, SCD LLE , and ambulation) General: Alert, Oriented, Cooperative, No Acute Distress HEENT: Pupils Equal Lungs: Normal Respiratory Effort Cardiovascular: Other (PP2+) Extremities: No Pedal Edema, Normal Capillary Refill. No: Finn's Sign, Redness Skin: Warm, Dry Neurological: Normal Speech, Normal Tone Psy/Mental Status: Alert, Normal Affect, Normal Mood Physical Findings Comment:: Sitting in bed mid-morning. "Had a late breakfast." Knee immobilizer on. "I just took off the ice pack." Wound vac dressing intact and working, as evidenced by compression present to foam pad. Generalized soft tissue swelling to knee has decreased from 2 days ago. Sepsis Event Note - Evaluation Sepsis Screening Result: No Definite Risk - Focused Exam Vital Signs: Vital Signs Temp Pulse Pulse Resp BP BP Pulse Ox 09/13/19 08:22 76 117/58 L 09/13/19 07:25 36.4 C 75 17 117/58 L 96 09/13/19 04:00 37.1 C 74 17 114/50 L 95 09/13/19 00:00 37.3 C 87 18 130/64 97 Date Exam was Performed: 09/13/19 Time Exam was Performed: 10:41 - Problem List Review Problem List Initiated/Reviewed/Updated: Yes - My Orders Last 24 Hours: Active Orders 24 hr Category Date Time Status Communication Order [RC] PRN Care 09/12/19 20:31 Active Communication Order [RC] ROUTINE Care 09/13/19 09:00 Active BMP [BASIC METABOLIC PANEL,BMP] [CHEM] AM Lab 09/14/19 05:11 Ordered BMP [BASIC METABOLIC PANEL,BMP] [CHEM] AM Lab 09/15/19 05:11 Ordered BMP [BASIC METABOLIC PANEL,BMP] [CHEM] AM Lab 09/16/19 05:11 Ordered HEMOGLOBIN/HEMATOCRIT,HH [HEME] AM Lab 09/14/19 05:11 Ordered HEMOGLOBIN/HEMATOCRIT,HH [HEME] AM Lab 09/15/19 05:11 Ordered HEMOGLOBIN/HEMATOCRIT,HH [HEME] AM Lab 09/16/19 05:11 Ordered VANCOMYCIN TROUGH [CHEM] Routine Lab 09/13/19 15:30 Ordered Vancomycin 1.25 gm Med 09/12/19 16:00 Active Sodium Chloride 0.9% [Normal Saline (AdvBag)] 250 ml IV Q12H Medication Orders Al Hydroxide/Mg Hydroxide (Mag-Al Plus) 30 ml PO Q4H PRN PRN Reason: Indigestion Amlodipine Besylate (Norvasc) 10 mg PO DAILY [facility] Last Admin: 09/13/19 08:22 Dose: 10 mg Admin: 09/12/19 09:01 Dose: 10 mg Admin: 09/11/19 08:52 Dose: 10 mg Admin: 09/10/19 08:28 Dose: 10 mg Admin: 09/09/19 08:13 Dose: 10 mg Admin: 09/08/19 10:52 Dose: 10 mg Admin: 09/07/19 08:40 Dose: 10 mg Aspirin (Aspirin) 325 mg PO DAILY [facility] Admin: 09/13/19 08:22 Dose: 325 mg Admin: 09/12/19 09:03 Dose: 325 mg Admin: 09/11/19 08:51 Dose: 325 mg Admin: 09/10/19 08:26 Dose: 325 mg Admin: 09/09/19 08:14 Dose: 325 mg Admin: 09/08/19 10:52 Dose: 325 mg Bisacodyl (Dulcolax) 10 mg RECTAL DAILY PRN PRN Reason: Constipation Carvedilol (Coreg) 3.125 mg PO BIDMEALS [facility] Admin: 09/13/19 08:22 Dose: 3.125 mg Admin: 09/12/19 16:07 Dose: 3.125 mg Admin: 09/12/19 09:03 Dose: 3.125 mg Admin: 09/11/19 18:02 Dose: 3.125 mg Admin: 09/11/19 08:53 Dose: 3.125 mg Admin: 09/10/19 17:25 Dose: 3.125 mg Admin: 09/10/19 08:28 Dose: 3.125 mg Admin: 09/09/19 16:43 Dose: 3.125 mg Admin: 09/09/19 08:13 Dose: 3.125 mg Admin: 09/08/19 17:51 Dose: 3.125 mg Admin: 09/08/19 10:51 Dose: 3.125 mg Admin: 09/07/19 17:28 Dose: 3.125 mg Admin: 09/07/19 08:40 Dose: 3.125 mg Admin: 09/06/19 20:33 Dose: 3.125 mg Diphenhydramine HCl (Benadryl) 25 - 50 mg PO Q6H PRN PRN Reason: Itching Docusate Sodium (Colace) 100 mg PO BID PRN PRN Reason: Constipation Enalapril Maleate (Vasotec) 10 mg PO DAILY [facility] Last Admin: 09/13/19 08:22 Dose: 10 mg Admin: 09/12/19 09:02 Dose: 10 mg Admin: 09/11/19 08:52 Dose: 10 mg Admin: 09/10/19 08:26 Dose: 10 mg Admin: 09/09/19 08:12 Dose: 10 mg Admin: 09/08/19 10:52 Dose: 10 mg Vancomycin HCl 1.25 gm/ Sodium (Chloride) 250 mls @ 166.667 mls/hr IV Q12H [facility] Last Admin: 09/13/19 04:07 Dose: 166.667 mls/hr Infusion: 09/12/19 17:07 Dose: 166.667 mls/hr Admin: 09/12/19 15:37 Dose: 166.667 mls/hr Ondansetron HCl (Zofran) 4 mg IVPUSH Q6H PRN PRN Reason: Nausea/Vomiting Oxycodone/Acetaminophen (Percocet 325-5 Mg) 1 - 2 tab PO Q6HR PRN PRN Reason: Pain Last Admin: 09/13/19 00:31 Dose: 1 tab Admin: 09/12/19 18:27 Dose: 1 tab Admin: 09/12/19 10:03 Dose: 1 tab Admin: 09/11/19 18:01 Dose: 2 tab Admin: 09/11/19 08:49 Dose: 2 tab Admin: 09/10/19 20:45 Dose: 2 tab Admin: 09/10/19 13:59 Dose: 2 tab Admin: 09/10/19 05:57 Dose: 2 tab Admin: 09/09/19 21:07 Dose: 2 tab Admin: 09/09/19 15:04 Dose: 1 tab Admin: 04/23/20 08:11 Dose: 2 tab Admin: 09/08/19 23:33 Dose: 2 tab Admin: 09/08/19 17:50 Dose: 2 tab Admin: 09/08/19 10:30 Dose: 2 tab Admin: 09/08/19 04:25 Dose: 2 tab Admin: 09/07/19 22:03 Dose: 2 tab Admin: 09/07/19 15:50 Dose: 2 tab Admin: 09/06/19 20:33 Dose: 2 tab Polyethylene Glycol (Miralax) 17 gm PO DAILY [facility] Last Admin: 09/13/19 08:22 Dose: 17 gm Admin: 09/12/19 09:03 Dose: 17 gm Admin: 09/11/19 09:12 Dose: 17 gm Admin: 09/10/19 08:29 Dose: 17 gm Admin: 09/09/19 08:14 Dose: 17 gm Admin: 09/08/19 10:52 Dose: 17 gm Sodium Chloride (Saline Flush) 10 ml FLUSH ASDIRECTED PRN PRN Reason: Keep Vein Open Sodium Chloride (Saline Flush) 2.5 ml FLUSH ASDIRECTED PRN PRN Reason: Keep Vein Open - Assessment Assessment (Free Text/Narrative):: 1) s/p second I&D RIGHT knee d/t wound dehiscence with history of I&D and removal of TKA hardware 09/01/2019 2) application of wound vac RIGHT knee 3) post-surgical anemia, asymptomatic 4) HTN - Plan Plan (Free Text/Narrative):: I received phone call 09/11/2019 1943 that wound vac was not working and drainage was accumulating in the dressing. Came in, removed current dressing and reapplied new dressing with adequate seal as evidenced by compressed foam. Wound assessment at that time : unchanged in appearance from previous dressing change. Wound approximated with prolene sutures. There was small amount of continuous serosanguineous drainage from superior aspect of incision. Small foam dressing still intact to portion of midline incision that was left open. The 1cm incision laterally to distal portion of incision had moderate amount of serosanguineous drainage, with small piece of foam dressing still intact in open incision. Overall, there was no surrounding erythema. Minimal soft tissue swelling. No pain or swelling to right calf. No pitting edema to RLE. He tolerated dressing change well, and had no additional questions. I received another phone call 09/12/2019 at 2027, and order given for nurse to change wound vac dressing as it was no longer sealed, and foam dressing was not compressed. Informed to call me if additional assistance was needed. Today, Helder is doing well. He has no acute concerns, but with questions in regards to future plans, specifically for the wound vac. Afebrile. Tolerating food/fluids without N/V. Denies constipation concerns, as we discussed that constipation is a side effect of taking narcotic medication. Overall, he has little pain in right knee. Only time he has some pain is when weight bearing with ambulation. When needed, pain medication diminishes his pain. Wound vac dressing intact and working, as evidenced by compressed foam pad. Current canister with 10cc of bloody drainage. Knee immobilizer on at all times. Generalized swelling to knee is minimal, decreased from 2-3 days ago, with use of polar ice machine. Sensation grossly intact to LE. No pain, redness or swelling to calf. No pitting edema. DVT prophylaxis : ASA 325mg daily, SCE LLE and ambulation. intermediate card tender plan : 1) complete 6 weeks of IV antibiotic therapy (currently receiving Vancomycin, dosed per pharmacy, thru his PICC line) prior to Right TKA revision (removal of antibiotic spacer and antibiotic impregnated cement femur prosthesis) and 2) wound vac to right knee. Discharge plan : swing bed placement for administration of IV antibiotics and diligent monitoring of wound vac, replacing dressings when needed (if tubing is plugged or seal on dressing lost) to avoid accumulation of drainage against surgical incision. Case management has been working on placement, and Helder is aware of need for continued care. Hospitalist services appreciated for management of his multiple blood pressure medications. I spoke with hospitalist Dr. Isaías Cobb in regards to Helder's Hg, and as he is asymptomatic, he does not meet criteria to necessitate transfusion , and will continue to monitor. Helder will be seen by physical therapy today as well, for upper extremity strengthening and ambulation as tolerates. Lastly, Helder asked if I would call his Adeola with an update, and will contact her as requested. Verbal report was provided to Dr. Javy Lieberman after seeing Helder this morning , updating him on weekend dressing changes, current working condition of wound vac, and consultation with hospitalist in regards to current Hg.
[2019-09-14 07:05] LABS: BLOOD UREA NITROGEN,BUN 20 mg/dL (7.0-18.0); CARBON DIOXIDE,CO2 27.1 mmol/L (21.0-32.0); CHLORIDE,CL 105 mmol/L (98-107); GLUCOSE RANDOM 108 mg/dL (74-106); POTASSIUM,K 4.4 mmol/L (3.5-5.1); SODIUM,NA 139 mmol/L (136-148)
[2019-09-14] MEDS: Carvedilol 3.125 MG Tab PO SCH ×2 (08:40→16:49)
[2019-09-14] MEDS: Polyethylene Glycol 3350 Powder 17 GM Packet PO SCH (08:41)
[2019-09-14] MEDS: Aspirin 325 MG Tab PO SCH (08:41)
[2019-09-14] MEDS: amLODIPine 5 MG Tab PO SCH (08:41)
--- NOTE | 2019-09-14 09:02 | PCM.PN ---
- General Info Date of Service: 09/14/19 Admission Dx/Problem (Free Text): Admission Diagnosis/Problem Admission Diagnosis/Problem Infection of knee Subjective Update: Doing well this morning. No pain unless walking. No fevers or chills. No chest pain or shortness of breath. Functional Status: Reports: Pain Controlled, Tolerating Diet, Ambulating, Urinating - Review of Systems HEENT: Reports: No Symptoms Pulmonary: Reports: No Symptoms. Denies: Shortness of Breath, Cough Cardiovascular: Reports: No Symptoms. Denies: Chest Pain, Edema Gastrointestinal: Reports: No Symptoms. Denies: Abdominal Pain, Nausea, Vomiting Genitourinary: Reports: No Symptoms Musculoskeletal: Reports: No Symptoms Skin: Reports: No Symptoms Neurological: Reports: No Symptoms Psychiatric: Reports: No Symptoms - Patient Data Vitals - Most Recent: Last Vital Signs Temp 96.6 F L 09/14/19 08:42 Pulse 80 09/14/19 08:42 Resp 17 09/14/19 08:42 BP 120/66 09/14/19 08:42 Pulse Ox 97 09/14/19 08:42 Weight - Most Recent: 123.377 kg I&O - Last 24 Hours: Intake & Output 09/13/19 09/14/19 09/14/19 22:59 06:59 14:59 Intake Total 700 850 Output Total 1250 1050 Balance -550 -200 Lab Results Last 24 Hours: Laboratory Results - last 24 hr 09/13/19 09/14/19 09/14/19 Range/Units 15:39 06:40 06:40 Hgb 8.3 L (13.0-17.0) g/dL Hct 27.2 L (38.0-50.0) % Sodium 139 (136-148) mmol/L Potassium 4.4 (3.5-5.1) mmol/L Chloride 105 (98-107) mmol/L Carbon Dioxide 27.1 (21.0-32.0) mmol/L BUN 20 H (7.0-18.0) mg/dL Creatinine 1.1 (0.8-1.3) mg/dL Est Cr Clr Drug Dosing 71.89 mL/min Estimated GFR (MDRD) > 60.0 ml/min Glucose 108 H (74-106) mg/dL Calcium 8.2 L (8.5-10.1) mg/dL Vancomycin Trough 16.2 H (5.0-10.0) ug/mL Med Orders - Current: Current Medications Al Hydroxide/Mg Hydroxide (Mag-Al Plus) 30 ml PO Q4H PRN PRN Reason: Indigestion Amlodipine Besylate (Norvasc) 10 mg PO DAILY [facility] Last Admin: 09/14/19 08:41 Dose: 10 mg Aspirin (Aspirin) 325 mg PO DAILY [facility] Last Admin: 09/14/19 08:41 Dose: 325 mg Bisacodyl (Dulcolax) 10 mg RECTAL DAILY PRN PRN Reason: Constipation Carvedilol (Coreg) 3.125 mg PO BIDMEALS [facility] Last Admin: 09/14/19 08:40 Dose: 3.125 mg Diphenhydramine HCl (Benadryl) 25 - 50 mg PO Q6H PRN PRN Reason: Itching Docusate Sodium (Colace) 100 mg PO BID PRN PRN Reason: Constipation Enalapril Maleate (Vasotec) 10 mg PO DAILY [facility] Last Admin: 09/14/19 08:41 Dose: 10 mg Vancomycin HCl 1.25 gm/ Sodium (Chloride) 250 mls @ 166.667 mls/hr IV Q12H [facility] Last Admin: 09/14/19 04:11 Dose: 166.667 mls/hr Ondansetron HCl (Zofran) 4 mg IVPUSH Q6H PRN PRN Reason: Nausea/Vomiting Oxycodone/Acetaminophen (Percocet 325-5 Mg) 1 - 2 tab PO Q6HR PRN PRN Reason: Pain Last Admin: 09/13/19 20:33 Dose: 2 tab Polyethylene Glycol (Miralax) 17 gm PO DAILY [facility] Last Admin: 09/14/19 08:41 Dose: 17 gm Sodium Chloride (Saline Flush) 10 ml FLUSH ASDIRECTED PRN PRN Reason: Keep Vein Open Sodium Chloride (Saline Flush) 2.5 ml FLUSH ASDIRECTED PRN PRN Reason: Keep Vein Open Discontinued Medications Bupivacaine HCl (Sensorcaine-Mpf 0.5%) Confirm Administered Dose 10 ml .ROUTE .ST[facility]-MED ONE Stop: 09/07/19 09:25 Bupivacaine HCl/Epinephrine Bitart (Marcaine 0.5%/Epinephrine 1:200,000) Confirm Administered Dose 10 ml .ROUTE .[facility]-MED ONE Stop: 09/07/19 08:10 Bupivacaine HCl/Epinephrine Bitart (Marcaine 0.5%/Epinephrine 1:200,000) Confirm Administered Dose 10 ml .ROUTE .STK-MED ONE Stop: 09/07/19 13:51 Gentamicin Sulfate (Gentamicin) Confirm Administered Dose 160 mg .ROUTE .STK- MED ONE Stop: 09/07/19 08:23 Gentamicin Sulfate (Gentamicin) Confirm Administered Dose 80 mg .ROUTE .ST-MED ONE Stop: 09/07/19 12:56 Lactated Ringer's (Ringers, Lactated) 1,000 mls @ 75 mls/hr IV ASDIRECTED [facility] Last Admin: 09/06/19 23:57 Dose: 75 mls/hr Vancomycin HCl 1.5 gm/ Premix 300 mls @ 200 mls/hr IV Q12H [facility] Last Admin: 09/09/19 04:32 Dose: Not Given Vancomycin HCl 1 gm/ Sodium (Chloride) 250 mls @ 166 mls/hr IV Q12H [facility] Stop: 09/11/19 19:00 Last Admin: 09/11/19 18:02 Dose: 166 mls/hr Vancomycin HCl 1.25 gm/ Sodium (Chloride) 250 mls @ 166.667 mls/hr IV Q12H [facility] Vancomycin HCl 1.25 gm/ Sodium (Chloride) 250 mls @ 166.667 mls/hr IV Q12H [facility] Last Admin: 09/12/19 04:10 Dose: 166.667 mls/hr Sodium Chloride (Normal Saline (Advbag)) Confirm Administered Dose 250 mls @ as directed .ROUTE .[facility] ONE Stop: 09/12/19 03:53 Last Admin: 09/12/19 04:43 Dose: Not Given Lidocaine HCl (Xylocaine 1%) Confirm Administered Dose 20 ml .ROUTE .[facility]-MED ONE Stop: 09/07/19 08:10 Midazolam HCl (Versed 1 Mg/Ml) Confirm Administered Dose 4 mg .ROUTE .STK-MED ONE Stop: 09/07/19 11:24 Propofol (Diprivan 20 Ml) Confirm Administered Dose 400 mg .ROUTE .STK-MED ONE Stop: 09/07/19 11:24 Propofol (Diprivan 20 Ml) Confirm Administered Dose 400 mg .ROUTE .STK-MED ONE Stop: 09/07/19 13:17 Vancomycin HCl (Pharmacy To Dose - Vancomycin) 1 dose .XX ASDIRECTED [facility] Vancomycin HCl (Vancomycin) Confirm Administered Dose 1.25 gm .ROUTE .STK-MED ONE Stop: 09/12/19 03:53 Last Admin: 09/12/19 04:43 Dose: Not Given - Exam General: Alert, Oriented, Cooperative, No Acute Distress Lungs: Clear to Auscultation, Normal Respiratory Effort Cardiovascular: Regular Rate, Regular Rhythm GI/Abdominal Exam: Normal Bowel Sounds, Non-Tender Extremities: Normal Inspection, Normal Range of Motion, Non-Tender, No Pedal Edema Wound/Incisions: Dressing Dry and Intact (wound vac to R knee). No: Erythema Neurological: No New Focal Deficit Psy/Mental Status: Alert, Normal Affect, Normal Mood Sepsis Event Note - Evaluation Sepsis Screening Result: No Definite Risk - Focused Exam Vital Signs: Vital Signs Temp Pulse Pulse Resp BP BP Pulse Ox 09/14/19 08:42 96.6 F L 80 17 120/66 97 09/14/19 08:41 120/66 09/14/19 08:40 80 120/66 09/14/19 04:05 98 F 80 16 123/64 95 09/13/19 23:52 98 F 71 16 128/69 95 Date Exam was Performed: 09/14/19 Time Exam was Performed: 08:56 - Problem List & Annotations (1) MRSA (methicillin resistant staph aureus) culture positive SNOMED Code(s): 147956113 Code(s): Z22.322 - CARRIER OR SUSPECTED CARRIER OF METHICILLIN RESIS STAPH Status: Acute Current Visit: Yes (2) Postoperative wound infection SNOMED Code(s): 35918451, 541674294 Code(s): T81.49XA - INFECTION FOLLOWING A PROCEDURE, OTHER SURGICAL SITE, INIT Status: Acute Current Visit: Yes (3) HTN (hypertension) SNOMED Code(s): 93318692 Code(s): I10 - ESSENTIAL (PRIMARY) HYPERTENSION Status: Acute Current Visit: No Qualifiers: Hypertension type: essential hypertension Qualified Code(s): I10 - Essential (primary) hypertension (4) Infection of total knee replacement SNOMED Code(s): 809536074 Code(s): T84.59XA - INFECT/INFLM REACTION DUE TO OTH INTERNAL JOINT PROSTH, INIT; Z96.659 - PRESENCE OF UNSPECIFIED ARTIFICIAL KNEE JOINT Status: Acute Current Visit: No Qualifiers: Encounter type: initial encounter Qualified Code(s): T84.59XA - Infection and inflammatory reaction due to other internal joint prosthesis, initial encounter; Z96.659 - Presence of unspecified artificial knee joint - Problem List Review Problem List Initiated/Reviewed/Updated: Yes - My Orders Last 24 Hours: My Active Orders 09/15/19 05:11 BMP [BASIC METABOLIC PANEL,BMP] [CHEM] AM HEMOGLOBIN/HEMATOCRIT,HH [HEME] AM 09/16/19 05:11 BMP [BASIC METABOLIC PANEL,BMP] [CHEM] AM HEMOGLOBIN/HEMATOCRIT,HH [HEME] AM - Plan Plan:: This 63 year old male admitted with infected R TKA, Orthopedics consulted Hospitalist service for medical management of HTN. 1. R TKA infection: - cont Vancomycin, MRSA grew out previously - Wound vac in place 2. HTN: - Stable, - Continue Coreg, Enalapril and Norvasc in am - Monitor BMP daily 3. Anemia: - Hgb stable 8.3 , asymptomatic. - Monitor daily, transfuse if <7.0 - Start Iron daily VTE prophylaxis: Would recommend when deemed appropriate by Orthopedics Dispo: services executive working on this swing bed placement.
[2019-09-14] MEDS: Iron Polysaccharides Complex 150 MG Cap PO SCH (09:38)
--- NOTE | 2019-09-14 13:00 | PCM.SURGPN ---
- General Info Date of Service: 09/14/19 Date of Surgery/Procedure: 09/07/19 POD#: 7 Post-Op Diagnosis: s/p wound dehiscence of I and D with spacer right knee Functional Status: Reports: Pain Controlled, Tolerating Diet, Ambulating - Review of Systems General: Reports: No Symptoms HEENT: Reports: No Symptoms Pulmonary: Reports: No Symptoms Cardiovascular: Reports: No Symptoms Gastrointestinal: Reports: No Symptoms Genitourinary: Reports: No Symptoms Musculoskeletal: Reports: Joint Pain, Joint Swelling Skin: Reports: No Symptoms Neurological: Reports: No Symptoms Psychiatric: Reports: No Symptoms - Patient Data Vitals - Most Recent: Last Vital Signs Temp 36.2 C 09/14/19 12:00 Pulse 84 09/14/19 12:00 Resp 17 09/14/19 12:00 BP 110/42 L 09/14/19 12:00 Pulse Ox 95 09/14/19 12:00 Weight - Most Recent: 123.377 kg I&O - Last 24 Hours: Intake & Output 09/13/19 09/14/19 09/14/19 22:59 06:59 14:59 Intake Total 700 850 Output Total 1250 1050 Balance -550 -200 Lab Results Last 24 Hrs: Laboratory Results - last 24 hr 09/13/19 09/14/19 09/14/19 Range/Units 15:39 06:40 06:40 Hgb 8.3 L (13.0-17.0) g/dL Hct 27.2 L (38.0-50.0) % Sodium 139 (136-148) mmol/L Potassium 4.4 (3.5-5.1) mmol/L Chloride 105 (98-107) mmol/L Carbon Dioxide 27.1 (21.0-32.0) mmol/L BUN 20 H (7.0-18.0) mg/dL Creatinine 1.1 (0.8-1.3) mg/dL Est Cr Clr Drug Dosing 71.89 mL/min Estimated GFR (MDRD) > 60.0 ml/min Glucose 108 H (74-106) mg/dL Calcium 8.2 L (8.5-10.1) mg/dL Vancomycin Trough 16.2 H (5.0-10.0) ug/mL Med Orders - Current: Current Medications Al Hydroxide/Mg Hydroxide (Mag-Al Plus) 30 ml PO Q4H PRN PRN Reason: Indigestion Amlodipine Besylate (Norvasc) 10 mg PO DAILY [facility] Last Admin: 09/14/19 08:41 Dose: 10 mg Aspirin (Aspirin) 325 mg PO DAILY [facility] Last Admin: 09/14/19 08:41 Dose: 325 mg Bisacodyl (Dulcolax) 10 mg RECTAL DAILY PRN PRN Reason: Constipation Carvedilol (Coreg) 3.125 mg PO BIDMEALS [facility] Last Admin: 09/14/19 08:40 Dose: 3.125 mg Diphenhydramine HCl (Benadryl) 25 - 50 mg PO Q6H PRN PRN Reason: Itching Docusate Sodium (Colace) 100 mg PO BID PRN PRN Reason: Constipation Enalapril Maleate (Vasotec) 10 mg PO DAILY [facility] Last Admin: 09/14/19 08:41 Dose: 10 mg Vancomycin HCl 1.25 gm/ Sodium (Chloride) 250 mls @ 166.667 mls/hr IV Q12H [facility] Last Admin: 09/14/19 04:11 Dose: 166.667 mls/hr Ondansetron HCl (Zofran) 4 mg IVPUSH Q6H PRN PRN Reason: Nausea/Vomiting Oxycodone/Acetaminophen (Percocet 325-5 Mg) 1 - 2 tab PO Q6HR PRN PRN Reason: Pain Last Admin: 09/13/19 20:33 Dose: 2 tab Polyethylene Glycol (Miralax) 17 gm PO DAILY [facility] Last Admin: 09/14/19 08:41 Dose: 17 gm Polysaccharide Iron Complex (Ferrex 150) 150 mg PO DAILY [facility] Last Admin: 09/14/19 09:38 Dose: 150 mg Sodium Chloride (Saline Flush) 10 ml FLUSH ASDIRECTED PRN PRN Reason: Keep Vein Open Sodium Chloride (Saline Flush) 2.5 ml FLUSH ASDIRECTED PRN PRN Reason: Keep Vein Open Discontinued Medications Bupivacaine HCl (Sensorcaine-Mpf 0.5%) Confirm Administered Dose 10 ml .ROUTE .STK-MED ONE Stop: 09/07/19 09:25 Bupivacaine HCl/Epinephrine Bitart (Marcaine 0.5%/Epinephrine 1:200,000) Confirm Administered Dose 10 ml .ROUTE .STK-MED ONE Stop: 09/07/19 08:10 Bupivacaine HCl/Epinephrine Bitart (Marcaine 0.5%/Epinephrine 1:200,000) Confirm Administered Dose 10 ml .ROUTE .[facility]-MED ONE Stop: 09/07/19 13:51 Gentamicin Sulfate (Gentamicin) Confirm Administered Dose 160 mg .ROUTE .[facility]- MED ONE Stop: 09/07/19 08:23 Gentamicin Sulfate (Gentamicin) Confirm Administered Dose 80 mg .ROUTE .[facility]-MED ONE Stop: 09/07/19 12:56 Lactated Ringer's (Ringers, Lactated) 1,000 mls @ 75 mls/hr IV ASDIRECTED [facility] Last Admin: 09/06/19 23:57 Dose: 75 mls/hr Vancomycin HCl 1.5 gm/ Premix 300 mls @ 200 mls/hr IV Q12H [facility] Last Admin: 09/09/19 04:32 Dose: Not Given Vancomycin HCl 1 gm/ Sodium (Chloride) 250 mls @ 166 mls/hr IV Q12H [facility] Stop: 09/11/19 19:00 Last Admin: 09/11/19 18:02 Dose: 166 mls/hr Vancomycin HCl 1.25 gm/ Sodium (Chloride) 250 mls @ 166.667 mls/hr IV Q12H [facility] Vancomycin HCl 1.25 gm/ Sodium (Chloride) 250 mls @ 166.667 mls/hr IV Q12H [facility] Last Admin: 09/12/19 04:10 Dose: 166.667 mls/hr Sodium Chloride (Normal Saline (Advbag)) Confirm Administered Dose 250 mls @ as directed .ROUTE .[facility]-MED ONE Stop: 09/12/19 03:53 Last Admin: 09/12/19 04:43 Dose: Not Given Lidocaine HCl (Xylocaine 1%) Confirm Administered Dose 20 ml .ROUTE .[facility]-MED ONE Stop: 09/07/19 08:10 Midazolam HCl (Versed 1 Mg/Ml) Confirm Administered Dose 4 mg .ROUTE .[facility]-MED ONE Stop: 09/07/19 11:24 Propofol (Diprivan 20 Ml) Confirm Administered Dose 400 mg .ROUTE .[facility]-MED ONE Stop: 09/07/19 11:24 Propofol (Diprivan 20 Ml) Confirm Administered Dose 400 mg .ROUTE .[facility]-MED ONE Stop: 09/07/19 13:17 Vancomycin HCl (Pharmacy To Dose - Vancomycin) 1 dose .XX ASDIRECTED [facility] Vancomycin HCl (Vancomycin) Confirm Administered Dose 1.25 gm .ROUTE .ST[facility]-MED ONE Stop: 09/12/19 03:53 Last Admin: 09/12/19 04:43 Dose: Not Given - Exam Wound/Incisions: Healing Well, Drainage General: Alert, Oriented, Cooperative, No Acute Distress HEENT: Pupils Equal, Pupils Reactive, EOMI, Mucous Membr. Moist/[place] Neck: Supple, Trachea Midline Lungs: Normal Respiratory Effort Extremities: Limited Range of Motion Skin: Warm, Dry, Intact Neurological: No New Focal Deficit Psy/Mental Status: Alert, Normal Affect, Normal Mood Sepsis Event Note - Evaluation Sepsis Screening Result: No Definite Risk - Focused Exam Vital Signs: Vital Signs Temp Pulse Pulse Resp BP BP Pulse Ox 09/14/19 12:00 36.2 C 84 17 110/42 L 95 09/14/19 08:42 35.9 C L 80 17 120/66 97 09/14/19 08:41 120/66 09/14/19 08:40 80 120/66 09/14/19 04:05 36.6 C 80 16 123/64 95 Date Exam was Performed: 09/14/19 Time Exam was Performed: 12:57 - Problem List & Annotations (1) Postoperative wound infection SNOMED Code(s): 28428561, 042066530 Code(s): T81.49XA - INFECTION FOLLOWING A PROCEDURE, OTHER SURGICAL SITE, INIT Status: Acute Current Visit: Yes - Problem List Review Problem List Initiated/Reviewed/Updated: Yes - My Orders Last 24 Hours: Active Orders 24 hr Category Date Time Status BMP [BASIC METABOLIC PANEL,BMP] [CHEM] AM Lab 09/15/19 05:11 Ordered BMP [BASIC METABOLIC PANEL,BMP] [CHEM] AM Lab 09/16/19 05:11 Ordered HEMOGLOBIN/HEMATOCRIT,HH [HEME] AM Lab 09/15/19 05:11 Ordered HEMOGLOBIN/HEMATOCRIT,HH [HEME] AM Lab 09/16/19 05:11 Ordered Iron Polysaccharides Complex [Ferrex 150] Med 09/14/19 09:15 Active 150 mg PO DAILY Medication Orders Al Hydroxide/Mg Hydroxide (Mag-Al Plus) 30 ml PO Q4H PRN PRN Reason: Indigestion Amlodipine Besylate (Norvasc) 10 mg PO DAILY [facility] Last Admin: 09/14/19 08:41 Dose: 10 mg Admin: 09/13/19 08:22 Dose: 10 mg Admin: 09/12/19 09:01 Dose: 10 mg Admin: 09/11/19 08:52 Dose: 10 mg Admin: 09/10/19 08:28 Dose: 10 mg Admin: 09/09/19 08:13 Dose: 10 mg Admin: 09/08/19 10:52 Dose: 10 mg Admin: 09/07/19 08:40 Dose: 10 mg Aspirin (Aspirin) 325 mg PO DAILY [facility] Last Admin: 09/14/19 08:41 Dose: 325 mg Admin: 09/13/19 08:22 Dose: 325 mg Admin: 09/12/19 09:03 Dose: 325 mg Admin: 09/11/19 08:51 Dose: 325 mg Admin: 09/10/19 08:26 Dose: 325 mg Admin: 09/09/19 08:14 Dose: 325 mg Admin: 09/08/19 10:52 Dose: 325 mg Bisacodyl (Dulcolax) 10 mg RECTAL DAILY PRN PRN Reason: Constipation Carvedilol (Coreg) 3.125 mg PO BIDMEALS Counts include 234 beds at the [facility] Admin: 09/14/19 08:40 Dose: 3.125 mg Admin: 09/13/19 16:44 Dose: 3.125 mg Admin: 09/13/19 08:22 Dose: 3.125 mg Admin: 09/12/19 16:07 Dose: 3.125 mg Admin: 09/12/19 09:03 Dose: 3.125 mg Admin: 09/11/19 18:02 Dose: 3.125 mg Admin: 09/11/19 08:53 Dose: 3.125 mg Admin: 09/10/19 17:25 Dose: 3.125 mg Admin: 09/10/19 08:28 Dose: 3.125 mg Admin: 09/09/19 16:43 Dose: 3.125 mg Admin: 09/09/19 08:13 Dose: 3.125 mg Admin: 09/08/19 17:51 Dose: 3.125 mg Admin: 09/08/19 10:51 Dose: 3.125 mg Admin: 09/07/19 17:28 Dose: 3.125 mg Admin: 09/07/19 08:40 Dose: 3.125 mg Admin: 09/06/19 20:33 Dose: 3.125 mg Diphenhydramine HCl (Benadryl) 25 - 50 mg PO Q6H PRN PRN Reason: Itching Docusate Sodium (Colace) 100 mg PO BID PRN PRN Reason: Constipation Enalapril Maleate (Vasotec) 10 mg PO DAILY [facility] Last Admin: 09/14/19 08:41 Dose: 10 mg Admin: 09/13/19 08:22 Dose: 10 mg Admin: 09/12/19 09:02 Dose: 10 mg Admin: 09/11/19 08:52 Dose: 10 mg Admin: 09/10/19 08:26 Dose: 10 mg Admin: 09/09/19 08:12 Dose: 10 mg Admin: 09/08/19 10:52 Dose: 10 mg Vancomycin HCl 1.25 gm/ Sodium (Chloride) 250 mls @ 166.667 mls/hr IV Q12H [facility] Last Admin: 09/14/19 04:11 Dose: 166.667 mls/hr Infusion: 09/13/19 18:04 Dose: 166.667 mls/hr Admin: 09/13/19 16:34 Dose: 166.667 mls/hr Infusion: 09/13/19 05:37 Dose: 166.667 mls/hr Admin: 09/13/19 04:07 Dose: 166.667 mls/hr Infusion: 09/12/19 17:07 Dose: 166.667 mls/hr Admin: 09/12/19 15:37 Dose: 166.667 mls/hr Ondansetron HCl (Zofran) 4 mg IVPUSH Q6H PRN PRN Reason: Nausea/Vomiting Oxycodone/Acetaminophen (Percocet 325-5 Mg) 1 - 2 tab PO Q6HR PRN PRN Reason: Pain Last Admin: 09/13/19 20:33 Dose: 2 tab Admin: 09/13/19 11:21 Dose: 1 tab Admin: 09/13/19 00:31 Dose: 1 tab Admin: 09/12/19 18:27 Dose: 1 tab Admin: 09/12/19 10:03 Dose: 1 tab Admin: 09/11/19 18:01 Dose: 2 tab Admin: 09/11/19 08:49 Dose: 2 tab Admin: 09/10/19 20:45 Dose: 2 tab Admin: 09/10/19 13:59 Dose: 2 tab Admin: 09/10/19 05:57 Dose: 2 tab Admin: 09/09/19 21:07 Dose: 2 tab Admin: 09/09/19 15:04 Dose: 1 tab Admin: 09/09/19 08:11 Dose: 2 tab Admin: 09/08/19 23:33 Dose: 2 tab Admin: 09/08/19 17:50 Dose: 2 tab Admin: 09/08/19 10:30 Dose: 2 tab Admin: 09/08/19 04:25 Dose: 2 tab Admin: 09/07/19 22:03 Dose: 2 tab Admin: 09/07/19 15:50 Dose: 2 tab Admin: 09/06/19 20:33 Dose: 2 tab Polyethylene Glycol (Miralax) 17 gm PO DAILY [facility] Last Admin: 09/14/19 08:41 Dose: 17 gm Admin: 09/13/19 08:22 Dose: 17 gm Admin: 09/12/19 09:03 Dose: 17 gm Admin: 09/11/19 09:12 Dose: 17 gm Admin: 09/10/19 08:29 Dose: 17 gm Admin: 09/09/19 08:14 Dose: 17 gm Admin: 09/08/19 10:52 Dose: 17 gm Polysaccharide Iron Complex (Ferrex 150) 150 mg PO DAILY [facility] Last Admin: 09/14/19 09:38 Dose: 150 mg Sodium Chloride (Saline Flush) 10 ml FLUSH ASDIRECTED PRN PRN Reason: Keep Vein Open Sodium Chloride (Saline Flush) 2.5 ml FLUSH ASDIRECTED PRN PRN Reason: Keep Vein Open - Plan Plan (Free Text/Narrative):: Assessment: Postoperative day #7 status post irrigation and debridement of dehiscence of wound which was previously spaced Plan: Continue DVT prophylaxis, physical therapy, occupational therapy, VAC management. We will plan on having him go to an extended care facility on if the wound vacuum continues to be operational. The leg looks significantly better today. There is been a little bit less than 20 mL of drainage per day. No growth on cultures.
[2019-09-14] MEDS: Acetaminophen/oxyCODONE 325-5 MG Tab PO PRN ×2 (14:27→21:02)
[2019-09-15 06:21] LABS: BLOOD UREA NITROGEN,BUN 16 mg/dL (7.0-18.0); CARBON DIOXIDE,CO2 28.2 mmol/L (21.0-32.0); CHLORIDE,CL 104 mmol/L (98-107); GLUCOSE RANDOM 103 mg/dL (74-106); POTASSIUM,K 4.5 mmol/L (3.5-5.1); SODIUM,NA 138 mmol/L (136-148)
[2019-09-15] MEDS: Aspirin 325 MG Tab PO SCH (09:09)
[2019-09-15] MEDS: amLODIPine 5 MG Tab PO SCH (09:09)
[2019-09-15] MEDS: Iron Polysaccharides Complex 150 MG Cap PO SCH (09:09)
[2019-09-15] MEDS: Carvedilol 3.125 MG Tab PO SCH (09:10)
[2019-09-15] MEDS: Polyethylene Glycol 3350 Powder 17 GM Packet PO SCH (09:10)
[2019-09-15] MEDS: Acetaminophen/oxyCODONE 325-5 MG Tab PO PRN ×2 (09:18→13:52)
--- NOTE | 2019-09-15 09:39 | PCM.PN ---
- General Info Date of Service: 09/15/19 Admission Dx/Problem (Free Text): Admission Diagnosis/Problem Admission Diagnosis/Problem Infection of knee Subjective Update: Doing well this morning, no complaints. Functional Status: Reports: Pain Controlled, Tolerating Diet, Ambulating, Urinating - Review of Systems Pulmonary: Reports: No Symptoms. Denies: Shortness of Breath Cardiovascular: Reports: No Symptoms. Denies: Chest Pain Gastrointestinal: Reports: No Symptoms. Denies: Abdominal Pain, Nausea, Vomiting Genitourinary: Reports: No Symptoms. Denies: Dysuria, Frequency, Burning Musculoskeletal: Reports: Joint Pain (R knee pain, 07/26 but tolerable.) Skin: Reports: No Symptoms Neurological: Reports: No Symptoms Psychiatric: Reports: No Symptoms - Patient Data Vitals - Most Recent: Last Vital Signs Temp 98.2 F 09/15/19 09:00 Pulse 74 09/15/19 09:10 Resp 16 09/15/19 09:00 BP 114/61 09/15/19 09:10 Pulse Ox 94 L 09/15/19 09:00 Weight - Most Recent: 123.377 kg I&O - Last 24 Hours: Intake & Output 09/14/19 09/15/19 09/15/19 22:59 06:59 14:59 Intake Total 1140 1100 Output Total 875 480 Balance 265 620 Lab Results Last 24 Hours: Laboratory Results - last 24 hr 09/15/19 09/15/19 Range/Units 05:55 05:55 Hgb 8.0 L (13.0-17.0) g/dL Hct 26.5 L (38.0-50.0) % Sodium 138 (136-148) mmol/L Potassium 4.5 (3.5-5.1) mmol/L Chloride 104 (98-107) mmol/L Carbon Dioxide 28.2 (21.0-32.0) mmol/L BUN 16 (7.0-18.0) mg/dL Creatinine 1.1 (0.8-1.3) mg/dL Est Cr Clr Drug Dosing 71.89 mL/min Estimated GFR (MDRD) > 60.0 ml/min Glucose 103 (74-106) mg/dL Calcium 7.8 L (8.5-10.1) mg/dL Med Orders - Current: Current Medications Al Hydroxide/Mg Hydroxide (Mag-Al Plus) 30 ml PO Q4H PRN PRN Reason: Indigestion Amlodipine Besylate (Norvasc) 10 mg PO DAILY [facility] Last Admin: 09/15/19 09:09 Dose: 10 mg Aspirin (Aspirin) 325 mg PO DAILY [facility] Last Admin: 09/15/19 09:09 Dose: 325 mg Bisacodyl (Dulcolax) 10 mg RECTAL DAILY PRN PRN Reason: Constipation Carvedilol (Coreg) 3.125 mg PO BIDMEALS [facility] Last Admin: 09/15/19 09:10 Dose: 3.125 mg Diphenhydramine HCl (Benadryl) 25 - 50 mg PO Q6H PRN PRN Reason: Itching Docusate Sodium (Colace) 100 mg PO BID PRN PRN Reason: Constipation Enalapril Maleate (Vasotec) 10 mg PO DAILY [facility] Last Admin: 09/15/19 09:10 Dose: 10 mg Vancomycin HCl 1.25 gm/ Sodium (Chloride) 250 mls @ 166.667 mls/hr IV Q12H [facility] Last Admin: 09/15/19 03:51 Dose: 166.667 mls/hr Ondansetron HCl (Zofran) 4 mg IVPUSH Q6H PRN PRN Reason: Nausea/Vomiting Oxycodone/Acetaminophen (Percocet 325-5 Mg) 1 - 2 tab PO Q6HR PRN PRN Reason: Pain Last Admin: 09/15/19 09:18 Dose: 2 tab Polyethylene Glycol (Miralax) 17 gm PO DAILY [facility] Last Admin: 09/15/19 09:10 Dose: 17 gm Polysaccharide Iron Complex (Ferrex 150) 150 mg PO DAILY [facility] Last Admin: 09/15/19 09:09 Dose: 150 mg Sodium Chloride (Saline Flush) 10 ml FLUSH ASDIRECTED PRN PRN Reason: Keep Vein Open Sodium Chloride (Saline Flush) 2.5 ml FLUSH ASDIRECTED PRN PRN Reason: Keep Vein Open Discontinued Medications Bupivacaine HCl (Sensorcaine-Mpf 0.5%) Confirm Administered Dose 10 ml .ROUTE .ST[facility]-MED ONE Stop: 09/07/19 09:25 Bupivacaine HCl/Epinephrine Bitart (Marcaine 0.5%/Epinephrine 1:200,000) Confirm Administered Dose 10 ml .ROUTE .[facility]-MED ONE Stop: 09/07/19 08:10 Bupivacaine HCl/Epinephrine Bitart (Marcaine 0.5%/Epinephrine 1:200,000) Confirm Administered Dose 10 ml .ROUTE .[facility]-MED ONE Stop: 09/07/19 13:51 Gentamicin Sulfate (Gentamicin) Confirm Administered Dose 160 mg .ROUTE .[facility]- MED ONE Stop: 09/07/19 08:23 Gentamicin Sulfate (Gentamicin) Confirm Administered Dose 80 mg .ROUTE .[facility]-MED ONE Stop: 09/07/19 12:56 Lactated Ringer's (Ringers, Lactated) 1,000 mls @ 75 mls/hr IV ASDIRECTED [facility] Last Admin: 09/06/19 23:57 Dose: 75 mls/hr Vancomycin HCl 1.5 gm/ Premix 300 mls @ 200 mls/hr IV Q12H [facility] Last Admin: 09/09/19 04:32 Dose: Not Given Vancomycin HCl 1 gm/ Sodium (Chloride) 250 mls @ 166 mls/hr IV Q12H [facility] Stop: 09/11/19 19:00 Last Admin: 09/11/19 18:02 Dose: 166 mls/hr Vancomycin HCl 1.25 gm/ Sodium (Chloride) 250 mls @ 166.667 mls/hr IV Q12H [facility] Vancomycin HCl 1.25 gm/ Sodium (Chloride) 250 mls @ 166.667 mls/hr IV Q12H [facility] Last Admin: 09/12/19 04:10 Dose: 166.667 mls/hr Sodium Chloride (Normal Saline (Advbag)) Confirm Administered Dose 250 mls @ as directed .ROUTE .[facility]-MED ONE Stop: 09/12/19 03:53 Last Admin: 09/12/19 04:43 Dose: Not Given Lidocaine HCl (Xylocaine 1%) Confirm Administered Dose 20 ml .ROUTE .[facility]-MED ONE Stop: 09/07/19 08:10 Midazolam HCl (Versed 1 Mg/Ml) Confirm Administered Dose 4 mg .ROUTE .[facility]-MED ONE Stop: 09/07/19 11:24 Propofol (Diprivan 20 Ml) Confirm Administered Dose 400 mg .ROUTE .[facility]-MED ONE Stop: 09/07/19 11:24 Propofol (Diprivan 20 Ml) Confirm Administered Dose 400 mg .ROUTE .STK-MED ONE Stop: 09/07/19 13:17 Vancomycin HCl (Pharmacy To Dose - Vancomycin) 1 dose .XX ASDIRECTED [facility] Vancomycin HCl (Vancomycin) Confirm Administered Dose 1.25 gm .ROUTE .STK-MED ONE Stop: 09/12/19 03:53 Last Admin: 09/12/19 04:43 Dose: Not Given - Exam General: Alert, Oriented, Cooperative, No Acute Distress Lungs: Clear to Auscultation, Normal Respiratory Effort Cardiovascular: Regular Rate, Regular Rhythm GI/Abdominal Exam: Normal Bowel Sounds, Soft, Non-Tender Extremities: Normal Inspection, Normal Range of Motion, Non-Tender, No Pedal Edema Neurological: No New Focal Deficit Psy/Mental Status: Alert, Normal Affect, Normal Mood Sepsis Event Note - Evaluation Sepsis Screening Result: No Definite Risk - Focused Exam Vital Signs: Vital Signs Temp Pulse Pulse Resp BP BP Pulse Ox 09/15/19 09:10 74 114/61 09/15/19 09:09 114/61 09/15/19 09:00 98.2 F 74 16 114/61 94 L 09/15/19 03:45 97 F 70 17 118/60 96 09/14/19 23:55 97.2 F 80 16 123/64 96 Date Exam was Performed: 09/15/19 Time Exam was Performed: 09:37 - Problem List & Annotations (1) MRSA (methicillin resistant staph aureus) culture positive SNOMED Code(s): 002481553 Code(s): Z22.322 - CARRIER OR SUSPECTED CARRIER OF METHICILLIN RESIS STAPH Status: Acute Current Visit: Yes (2) Postoperative wound infection SNOMED Code(s): 84862075, 366083604 Code(s): T81.49XA - INFECTION FOLLOWING A PROCEDURE, OTHER SURGICAL SITE, INIT Status: Acute Current Visit: Yes (3) HTN (hypertension) SNOMED Code(s): 85702290 Code(s): I10 - ESSENTIAL (PRIMARY) HYPERTENSION Status: Acute Current Visit: No Qualifiers: Hypertension type: essential hypertension Qualified Code(s): I10 - Essential (primary) hypertension (4) Infection of total knee replacement SNOMED Code(s): 166836606 Code(s): T84.59XA - INFECT/INFLM REACTION DUE TO OTH INTERNAL JOINT PROSTH, INIT; Z96.659 - PRESENCE OF UNSPECIFIED ARTIFICIAL KNEE JOINT Status: Acute Current Visit: No Qualifiers: Encounter type: initial encounter Qualified Code(s): T84.59XA - Infection and inflammatory reaction due to other internal joint prosthesis, initial encounter; Z96.659 - Presence of unspecified artificial knee joint - Problem List Review Problem List Initiated/Reviewed/Updated: Yes - My Orders Last 24 Hours: My Active Orders 09/14/19 09:15 Iron Polysaccharides Complex [Ferrex 150] 150 mg PO DAILY - Plan Plan:: This 63 year old male admitted with infected R TKA, Orthopedics consulted Hospitalist service for medical management of HTN. 1. R TKA infection: - cont Vancomycin, MRSA grew out previously - Wound vac in place 2. HTN: - Stable, - Continue Coreg, Enalapril and Norvasc in am - Monitor BMP daily 3. Anemia: - Hgb stable 8.3 , asymptomatic. - Monitor daily, transfuse if <7.0 - Iron daily VTE prophylaxis: SCDs and ASA per orthopedics Dispo: instructional media services technician working on this swing bed placement, likely or friday.
--- NOTE | 2019-09-15 13:55 | PCM.DCSUM1 ---
Discharge Summary - Hospital Course HPI Initial Comments: 63 yo male s/p irrigation and debridement for MRSA infected right total knee arthroplasty Diagnosis: Stroke: No - Discharge Data Discharge Date: 09/15/19 Discharge Disposition: DC/Tfer to Acute Hospital 02 Condition: Stable - Referral to Home Health Primary Care Physician: Shellie Goldman [facility] - Discharge Diagnosis/Problem(s) (1) Postoperative wound infection SNOMED Code(s): 55331739, [id number] ICD Code: T81.49XA - INFECTION FOLLOWING A PROCEDURE, OTHER SURGICAL SITE, INIT Status: Acute Current Visit: Yes - Patient Summary/Data Operative Procedure(s) Performed: Irrigation debridement status post wound dehiscence after irrigation debridement and wound VAC placement of infected total right knee arthroplasty, application of wound VAC, 2 incisions Consults: Consultations 09/07/19 14:19 PT Evaluation and Treatment [CONS] Routine 09/07/19 14:41 Consult to Physician [CONS] Routine Hospital Course: patient kept for wound vac complications that were resolved. [place] [facility] specialist contacted about case and agreed to transfer for plastics consult for possible flap for wound coverage. - Patient Instructions Diet: Usual Diet as Tolerated Activity: Apply Ice, Elevate Extremity, Full Weight Bearing, No Strenuous Activities Driving: Do Not Drive Showering/Bathing: May Shower Wound/Incision Care: Keep Operative Site/Wound Site Clean and Dry Wound/Incision, Other: change would vac q 3-4 days Notify Provider of: Fever, Increased Pain, Swelling and Redness, Drainage, Nausea and/or Vomiting - Discharge Plan *PRESCRIPTION DRUG MONITORING PROGRAM REVIEWED*: Yes *COPY OF PRESCRIPTION DRUG MONITORING REPORT IN PATIENT JAMISON: No Prescriptions/Med Rec: hydrOXYzine pamoate [Hydroxyzine Pamoate] 25 mg PO TID #21 capsule Home Medications: Home Meds Enalapril Maleate 10 mg PO DAILY 07/23/19 [History] amLODIPine Besylate [Amlodipine Besylate] 10 mg PO DAILY 07/23/19 [History] carvediloL [Coreg] 3.125 mg PO BID 07/23/19 [History] Acetaminophen/oxyCODONE [Percocet 325-5 MG] 1 - 2 tab PO Q6HR PRN #40 tablet [Rx] Pharmacy to Dose - Vancomycin 1 dose .XX ASDIRECTED each 09/03/19 [Rx] hydrOXYzine pamoate [Hydroxyzine Pamoate] 25 mg PO TID #21 capsule 09/08/19 [Rx] Patient Handouts: Hydroxyzine capsules or tablets Referrals: Danitza Balbuena NP [Nurse Practitioner] - 09/16/19 1:20 pm - Discharge Summary/Plan Comment DC Time >30 min.: No - General Info Date of Service: 09/15/19 Admission Dx/Problem (Free Text: Admission Diagnosis/Problem Admission Diagnosis/Problem Infection of knee Functional Status: Reports: Pain Controlled, Tolerating Diet, Ambulating, Urinating - Review of Systems General: Reports: No Symptoms HEENT: Reports: No Symptoms Pulmonary: Reports: No Symptoms Cardiovascular: Reports: No Symptoms Gastrointestinal: Reports: No Symptoms Genitourinary: Reports: No Symptoms Musculoskeletal: Reports: Leg Pain, Joint Pain Skin: Reports: No Symptoms Neurological: Reports: No Symptoms Psychiatric: Reports: No Symptoms - Patient Data Vitals - Most Recent: Last Vital Signs Temp 36.9 C 09/15/19 12:41 Pulse 75 09/15/19 12:41 Resp 16 09/15/19 12:41 BP 118/58 L 09/15/19 12:41 Pulse Ox 94 L 09/15/19 09:00 Weight - Most Recent: 123.377 kg I&O - Last 24 hours: Intake & Output 09/14/19 09/15/19 09/15/19 22:59 06:59 14:59 Intake Total 1140 1100 Output Total 875 480 Balance 265 620 Lab Results - Last 24 hrs: Laboratory Results - last 24 hr 09/15/19 09/15/19 Range/Units 05:55 05:55 Hgb 8.0 L (13.0-17.0) g/dL Hct 26.5 L (38.0-50.0) % Sodium 138 (136-148) mmol/L Potassium 4.5 (3.5-5.1) mmol/L Chloride 104 (98-107) mmol/L Carbon Dioxide 28.2 (21.0-32.0) mmol/L BUN 16 (7.0-18.0) mg/dL Creatinine 1.1 (0.8-1.3) mg/dL Est Cr Clr Drug Dosing 71.89 mL/min Estimated GFR (MDRD) > 60.0 ml/min Glucose 103 (74-106) mg/dL Calcium 7.8 L (8.5-10.1) mg/dL Med Orders - Current: Current Medications Al Hydroxide/Mg Hydroxide (Mag-Al Plus) 30 ml PO Q4H PRN PRN Reason: Indigestion Amlodipine Besylate (Norvasc) 10 mg PO DAILY [facility] Last Admin: 09/15/19 09:09 Dose: 10 mg Aspirin (Aspirin) 325 mg PO DAILY [facility] Last Admin: 09/15/19 09:09 Dose: 325 mg Bisacodyl (Dulcolax) 10 mg RECTAL DAILY PRN PRN Reason: Constipation Carvedilol (Coreg) 3.125 mg PO BIDMEALS [facility] Last Admin: 09/15/19 09:10 Dose: 3.125 mg Diphenhydramine HCl (Benadryl) 25 - 50 mg PO Q6H PRN PRN Reason: Itching Docusate Sodium (Colace) 100 mg PO BID PRN PRN Reason: Constipation Enalapril Maleate (Vasotec) 10 mg PO DAILY [facility] Last Admin: 09/15/19 09:10 Dose: 10 mg Vancomycin HCl 1.25 gm/ Sodium (Chloride) 250 mls @ 166.667 mls/hr IV Q12H [facility] Last Admin: 09/15/19 03:51 Dose: 166.667 mls/hr Ondansetron HCl (Zofran) 4 mg IVPUSH Q6H PRN PRN Reason: Nausea/Vomiting Oxycodone/Acetaminophen (Percocet 325-5 Mg) 1 - 2 tab PO Q6HR PRN PRN Reason: Pain Last Admin: 09/15/19 09:18 Dose: 2 tab Polyethylene Glycol (Miralax) 17 gm PO DAILY [facility] Last Admin: 09/15/19 09:10 Dose: 17 gm Polysaccharide Iron Complex (Ferrex 150) 150 mg PO DAILY [facility] Last Admin: 09/15/19 09:09 Dose: 150 mg Sodium Chloride (Saline Flush) 10 ml FLUSH ASDIRECTED PRN PRN Reason: Keep Vein Open Sodium Chloride (Saline Flush) 2.5 ml FLUSH ASDIRECTED PRN PRN Reason: Keep Vein Open Discontinued Medications Bupivacaine HCl (Sensorcaine-Mpf 0.5%) Confirm Administered Dose 10 ml .ROUTE .STK-MED ONE Stop: 09/07/19 09:25 Bupivacaine HCl/Epinephrine Bitart (Marcaine 0.5%/Epinephrine 1:200,000) Confirm Administered Dose 10 ml .ROUTE .STK-MED ONE Stop: 09/07/19 08:10 Bupivacaine HCl/Epinephrine Bitart (Marcaine 0.5%/Epinephrine 1:200,000) Confirm Administered Dose 10 ml .ROUTE .STK-MED ONE Stop: 09/07/19 13:51 Gentamicin Sulfate (Gentamicin) Confirm Administered Dose 160 mg .ROUTE .STK- MED ONE Stop: 09/07/19 08:23 Gentamicin Sulfate (Gentamicin) Confirm Administered Dose 80 mg .ROUTE .STK-MED ONE Stop: 09/07/19 12:56 Lactated Ringer's (Ringers, Lactated) 1,000 mls @ 75 mls/hr IV ASDIRECTED [facility] Last Admin: 09/06/19 23:57 Dose: 75 mls/hr Vancomycin HCl 1.5 gm/ Premix 300 mls @ 200 mls/hr IV Q12H [facility] Last Admin: 09/09/19 04:32 Dose: Not Given Vancomycin HCl 1 gm/ Sodium (Chloride) 250 mls @ 166 mls/hr IV Q12H [facility] Stop: 09/11/19 19:00 Last Admin: 09/11/19 18:02 Dose: 166 mls/hr Vancomycin HCl 1.25 gm/ Sodium (Chloride) 250 mls @ 166.667 mls/hr IV Q12H [facility] Vancomycin HCl 1.25 gm/ Sodium (Chloride) 250 mls @ 166.667 mls/hr IV Q12H [facility] Last Admin: 09/12/19 04:10 Dose: 166.667 mls/hr Sodium Chloride (Normal Saline (Advbag)) Confirm Administered Dose 250 mls @ as directed .ROUTE .STK-MED ONE Stop: 09/12/19 03:53 Last Admin: 09/12/19 04:43 Dose: Not Given Lidocaine HCl (Xylocaine 1%) Confirm Administered Dose 20 ml .ROUTE .STK-MED ONE Stop: 09/07/19 08:10 Midazolam HCl (Versed 1 Mg/Ml) Confirm Administered Dose 4 mg .ROUTE .STK-MED ONE Stop: 09/07/19 11:24 Propofol (Diprivan 20 Ml) Confirm Administered Dose 400 mg .ROUTE .STK-MED ONE Stop: 09/07/19 11:24 Propofol (Diprivan 20 Ml) Confirm Administered Dose 400 mg .ROUTE .STK-MED ONE Stop: 09/07/19 13:17 Vancomycin HCl (Pharmacy To Dose - Vancomycin) 1 dose .XX ASDIRECTED [facility] Vancomycin HCl (Vancomycin) Confirm Administered Dose 1.25 gm .ROUTE .STK-MED ONE Stop: 09/12/19 03:53 Last Admin: 09/12/19 04:43 Dose: Not Given - Exam Quality Assessment: Reports: Central Line/PICC, DVT Prophylaxis General: Reports: Alert, Oriented, Cooperative, No Acute Distress HEENT: Reports: Pupils Equal, Pupils Reactive, EOMI, Mucous Membr. Moist/[place] Neck: Reports: Supple, Trachea Midline Lungs: Reports: Clear to Auscultation, Normal Respiratory Effort GI/Abdominal Exam: No Distention Extremities: Joint Swelling, Leg Pain Skin: Reports: Warm, Dry, Intact Wound/Incisions: Reports: Healing Well, Drainage Neurological: Reports: No New Focal Deficit Psy/Mental Status: Reports: Alert, Normal Affect, Normal Mood Discharge Operative/Procedures - Procedures Performed Operations: I and D right tka, wound vac placement
== END 2019-09-15 14:20 | DRG 560 ==
LOC: MW.ED 15:34 → MW.MS 17:16 → OBSVTOIN 09-08 15:16 → MW.MS 09-08 15:17
PROVIDERS: ADMIT Orthopaedic Surgery; ATTEND Orthopaedic Surgery
DX: T84.53XA Infection and inflammatory reaction due to internal right knee prosthesis, initial encounter (principal); T81.31XA Disruption of external operation (surgical) wound, not elsewhere classified, initial encounter; I10 Essential (primary) hypertension; M19.90 Unspecified osteoarthritis, unspecified site; E66.9 Obesity, unspecified; F17.200 Nicotine dependence, unspecified, uncomplicated; B95.62 Methicillin resistant Staphylococcus aureus infection as the cause of diseases classified elsewhere; D64.9 Anemia, unspecified; Z79.899 Other long term (current) drug therapy; Z68.39 Body mass index [BMI] 39.0-39.9, adult
CPT/HCPCS: 36415; 73562-26-RT; 73562-RT; 80048; 80053; 80202; 83036; 83605; 83735; 85014; 85018; 85025; 85652; 86140; 87040; 97161-GP; 97530-GP; 99284; 99285-25; A9270-GY; G0378; J1580; J2001; J2250; J2704; J3370; J3490; J7050; J7120